=== PATIENT | female | born 1945 | race Caucasian/White ===

== ENCOUNTER → 2016-11-15 | Outpatient (CLI) | payer MEDICARE, MEDICAID, OTHER ==
[~2016-11-15] MED LIST: /ADVA50050; /ADVA50050 IN; /ESOM40CA; /TIOT18INH; /TIOT18INH INH; /WARF25TA OR; ACET65TA; ACET65TA OR; ALTA5CAP; ALTA5CAP OR; ASPI325T; ASPI325T OR; BABY81CH OR; BUDE150T; BUDE150T OR; CALTRATE PO; CELE10TA; CELE10TA OR; CLAR5CHW; CLAR5CHW OR; COLA100C2 OR; Caltrate OR; DAPTOMYCIN; FLON0.05; HEPARIN FLUSH; KLOR10TA OR; LASI40TA; LASI40TA OR; LOPR50TA OR; MAGN500T2; MAGN500T2 OR; METO25TA2; MIRALEX; NEXI40GR OR; PERC5TAB8; PERC5TAB8 OR; PERC7.5T8; PERC7.5T8 OR; PRED20TA; SALINE FLUSH; STOOL SOFTENER; THERGRAN; TOPR50TA; Theragran OR; VANCOMYCIN; VICO5TAB; VICODINES TAB PO; XOPENEX PO; ZOCO40TA; ZOCO40TA OR; [UNRECOGNIZED DRUG - OTHER]; heparin
--- NOTE | 2016-11-15 11:38 | REP ---
Clinical: Cough . Comparison: 09/27/2010 . Technique: PA and lateral. Findings: The mediastinum and cardiac silhouette are stable. Evidence for prior sternotomy and CABG again noted. The lung melendez are clear and without acute consolidation, effusion, or pneumothorax. The skeletal structures are intact and normal. Impression: 1. No acute cardiopulmonary process. Signed by Lonnie Pritchard MD 11/15/2016 11:30 A
== END ==
LOC: M WUC 11:13
PROVIDERS: ATTEND Internal Medicine
DX: R05 Cough (principal); R06.02 Shortness of breath

== ENCOUNTER → 2017-02-07 | Outpatient (CLI) | payer MEDICARE, OTHER ==
--- NOTE | 2017-02-07 12:32 | REPMRS ---
Patient History The patient states she has not had a clinical breast exam in over a year. Patient is postmenopausal. No known family history of cancer. Digital Woman Screen Mammo: February 07, 2017 - Exam #: [id number] Bilateral CC and MLO view(s) were taken. Technologist: Sheryl Morrell Technologist Prior study comparison: November 06, 2014, digital bilateral screening mammo, performed at [facility]. FINDINGS: The breast tissue is heterogeneously dense. This may lower the sensitivity of mammography. There has been no change in the appearance of the mammogram from the prior studies. There is a moderate amount of residual fibroglandular tissue which is fairly symmetric. There is no interval development of dominant mass, areas of architectural distortion, or clustered microcalcification typical of malignancy. ASSESSMENT: BI-RADS/ACR category 1 mammogram. Negative. Recommendation Routine screening mammogram in 1 year (for women over age 40). This mammogram was interpreted with the aid of an FDA-approved computer-aided dectection system. Electronically Signed By: George Peterson MD 02/07/17 [id number]
--- NOTE | 2017-02-08 14:55 | DEXA ---
AP SPINE L1 - L4 1.203 0.1 1.7 LT FEMUR TOTAL 1.025 0.1 1.6 RT FEMUR TOTAL none done TOTAL BODY TOTAL OTHER DUAL FEMUR FRAX* ASSESSMENT Risk factors: Parent had hip fracture. 10 year probability of fracture Major osteoporotic fracture 11.8 % Hip fracture 1.1 % COMMENTS: Normal bone densitometry of the spine. Normal bone densitometry of the left hip. FOLLOW-UP: Recommendation for the next bone density exam: 5 years. MTDD
== END ==
LOC: M WHC 09:49
PROVIDERS: ATTEND Nurse Practitioner Family
DX: Z12.31 Encounter for screening mammogram for malignant neoplasm of breast (principal); M81.0 Age-related osteoporosis without current pathological fracture; Z78.0 Asymptomatic menopausal state
CPT/HCPCS: 77080; G0202

== ENCOUNTER → 2017-03-23 | Outpatient (REF) | payer MEDICARE, OTHER ==
[2017-03-23 14:17] LABS: ANION GAP 7 MEQ/L (8-16); BLOOD UREA NITROGEN 16 MG/DL (7-18); CALCIUM LEVEL 8.8 MG/DL (8.8-10.2); CARBON DIOXIDE LEVEL 32 MEQ/L (21-32); CHLORIDE LEVEL 96 MEQ/L (98-107); CREATININE FOR GFR 0.79 MG/DL (0.55-1.02); GLOMERULAR FILTRATION RATE > 60.0 (>45); GLUCOSE, FASTING 79 MG/DL (80-110); SODIUM LEVEL 135 MEQ/L (136-145)
== END ==
LOC: SKLABADC 08:50
PROVIDERS: ATTEND Nurse Practitioner Family
DX: I11.9 Hypertensive heart disease without heart failure (principal)

== ENCOUNTER → 2017-04-26 | Outpatient (REF) | payer MEDICARE, MEDICAID | LOC: M LAB REF 10:22 | PROVIDERS: ATTEND Internal Medicine | DX: Z11.59 Encounter for screening for other viral diseases (principal); M25.50 Pain in unspecified joint ==

== ENCOUNTER → 2018-05-20 | Outpatient (CLI) | payer MEDICARE, MEDICAID, OTHER | LOC: M WUC 11:13 | DX: R06.2 Wheezing (principal); R06.02 Shortness of breath; Z95.1 Presence of aortocoronary bypass graft; M19.011 Primary osteoarthritis, right shoulder | CPT/HCPCS: 71101 ==

== ENCOUNTER → 2018-11-05 | Outpatient (REF) | payer MEDICARE, MEDICAID, OTHER | LOC: M LAB REF 16:13 | PROVIDERS: ATTEND Internal Medicine | DX: M25.511 Pain in right shoulder (principal) ==

== ENCOUNTER → 2018-11-07 | Outpatient (CLI) | payer MEDICARE, MEDICAID, OTHER ==
--- NOTE | 2018-11-07 12:47 | REP ---
RIGHT SHOULDER, THREE VIEWS: HISTORY: Pain. COMPARISON: Chest, 11/15/2016. There is no acute fracture or dislocation. There is marked deformity of the head of the humerus and glenoid. There is sclerosis of the head of the humerus and glenoid. Osteophyte formation is present. There is moderate narrowing of the glenohumeral joint space. IMPRESSION: Degenerative change, as described above. Electronically Signed by Triston Moralez MD 11/07/2018 12:52 P
== END ==
LOC: M WUC 11:49
PROVIDERS: ATTEND Internal Medicine
DX: M19.011 Primary osteoarthritis, right shoulder (principal)

== ENCOUNTER → 2018-11-30 | Outpatient (CLI) | payer MEDICARE, MEDICAID ==
[~2018-11-30] MED LIST changes: -/ADVA50050; -/ADVA50050 IN; -/ESOM40CA; -/TIOT18INH; -/TIOT18INH INH; -/WARF25TA OR; +ADVA1AER2; +ADVA1AER2 IN; +COUM1TAB18 OR; +METO-743; +NEXI1CAP3; +SPIR1CAP; +SPIR1CAP INH; -TOPR50TA
--- NOTE | 2018-11-30 11:41 | REPMRS ---
Patient History The patient states she had a clinical breast exam in October 2018. No known family history of cancer. 3D TOMOSYNTHESIS WAS PERFORMED. Digital Mammo Screening Bilat: November 30, 2018 - Exam #: [id number] Bilateral CC and MLO view(s) were taken. Technologist: Daniella Youngblood, Technologist Prior study comparison: February 07, 2017, digital woman screen mammo, performed at [facility]. November 06, 2014, digital bilateral screening mammo, performed at [facility]. FINDINGS: The breast tissue is heterogeneously dense. This may lower the sensitivity of mammography. There has been no change in the appearance of the mammogram from the prior studies. There is a moderate amount of residual fibroglandular tissue which is fairly symmetric. There is no interval development of dominant mass, areas of architectural distortion, or clustered microcalcification typical of malignancy. Assessment: BI-RADS/ACR category 1 mammogram. Negative Mammogram. Recommendation Routine screening mammogram in 1 year (for women over age 40). This mammogram was interpreted with the aid of an FDA-approved computer-aided dectection system. Electronically Signed By: George Peterson MD 11/30/18 [id number]
== END ==
LOC: M RAD 09:59
PROVIDERS: ATTEND Internal Medicine
DX: Z12.31 Encounter for screening mammogram for malignant neoplasm of breast (principal)

== ENCOUNTER → 2019-02-05 | Outpatient (REF) | payer OTHER, MEDICAID | LOC: M LABDRAW1 12:46 | PROVIDERS: ATTEND Orthopaedic Surgery | DX: M19.011 Primary osteoarthritis, right shoulder (principal) ==

== ENCOUNTER → 2019-03-05 | Outpatient (REF) | payer OTHER, MEDICAID | LOC: M LAB REF 16:41 | PROVIDERS: ATTEND Internal Medicine | DX: M19.90 Unspecified osteoarthritis, unspecified site (principal) ==

== ENCOUNTER → 2019-04-19 | Outpatient (REF) | payer OTHER, MEDICAID ==
[~2019-04-19] MED LIST changes: +ACET650T15 PO; +ALBU83IN INH; +ASPI81TA85 PO; +ATOR80TA59 PO; +CITA20TA6 PO; +FURO40TA2 PO; +IBUP200C25 PO; +LORA-243 PO; +MORP-69 PO; +MULTCAP PO; +PANT20TA2 PO; +PANT40TA3 PO; +PERCOCET PO; +POTA10TA16 PO; +RAMI1CAP24 PO; +TRAZ1TAB10 PO; +TREL1AER INH
[2019-04-19 12:45] LABS: SOURCE, BODY FLUID RT SHOULDER; SYNOVIAL FLUID COLOR RED (YELLOW)
[2019-04-19 12:46] LABS: SOURCE, BODY FLUID GLUCOSE RT SHOULDER; SOURCE, BODY FLUID URIC ACID RT SHOULDER
[2019-04-19 12:47] LABS: CRYSTALS, BODY FLUID NONE SEEN (NONE SEEN); SOURCE, BODY FLUID CRYSTALS RT SHOULDER
== END ==
LOC: M LAB REF 11:50
PROVIDERS: ATTEND Orthopaedic Surgery
DX: M19.011 Primary osteoarthritis, right shoulder (principal)

== ENCOUNTER → 2019-06-12 | Outpatient (CLI) | payer MEDICAID, MEDICARE, OTHER ==
[~2019-06-12] MED LIST changes: -ACET650T15 PO; -ALBU83IN INH; -ASPI81TA85 PO; -ATOR80TA59 PO; -CITA20TA6 PO; -FURO40TA2 PO; -IBUP200C25 PO; -LORA-243 PO; -MORP-69 PO; -MULTCAP PO; -PANT20TA2 PO; -PANT40TA3 PO; -PERCOCET PO; -POTA10TA16 PO; -RAMI1CAP24 PO; -TRAZ1TAB10 PO; -TREL1AER INH
--- NOTE | 2019-06-12 16:24 | REP ---
MRI right shoulder without contrast: History: Primary osteoarthritis. Pain and decreased range of motion. Comparison radiographs are from November 07, 2018. Technique: Axial, oblique coronal, oblique sagittal imaging planes utilized. T1 and T2-weighted scans were included with and without fat saturation in the usual fashion. MRI findings: There is considerable motion artifact. Repeat sequences were attempted. The patient had difficulty remaining motionless to the due to pain and ultimately the exam was terminated at her request. There is severe right glenohumeral arthropathy with resorption and remodelling of the humeral head and remodelling of the glenoid. There is a small quantity of glenohumeral joint effusion. There is evidence of severe chondromalacia and cartilage loss diffusely in the glenohumeral articulation. I cannot exclude loose body due to the motion unsharpness. There are micro metallic artifact at the superior aspect of the joint suggesting previous surgery. Radiographically, the distal clavicle appears to have been resected. The infraspinatus tendon appears to be intact. The other tendons of the rotator cuff are very poorly identified. The supraspinatus tendon does not appear to be completely disrupted. Impression: Very limited study due to motion artifact. Severe erosive arthropathy of the right glenohumeral articulation. Electronically Signed by Jose Eduardo Mcgowan MD 06/12/2019 05:47 P
== END ==
LOC: M RAD 09:45
PROVIDERS: ATTEND Orthopaedic Surgery Sports Medicine
DX: M19.011 Primary osteoarthritis, right shoulder (principal)

== ENCOUNTER 2019-08-12 09:54 | Inpatient (IN) | payer MEDICARE, MEDICAID ==
[~2019-08-12] VITALS: Ht 175.3 cm; Wt 91.0 kg
[~2019-08-12 09:54] MED LIST changes: +ACET650T15 PO; +ALBU83IN INH; +ASPI81TA85 PO; +ATOR80TA59 PO; +CITA20TA6 PO; +FURO40TA2 PO; +IBUP200C25 PO; +LIDOCAINE 1% MDV 20ML VIAL SQ PRN; +LIDOCAINE 2% INJ 100 MG/5 ML SDV (FOR ANES.) As Ordered ONE; +LORA-243 PO; +LR 1,000 ML IV ONE; +MORP-69 PO; +MULTCAP PO; +PANT20TA2 PO; +POTA10TA16 PO; +PROPOFOL 200 MG/20 ML VIAL As Ordered ONE; +RAMI1CAP24 PO; +TRAZ1TAB10 PO; +TREL1AER INH
[2019-08-12] MEDS ORDERED: dexameTHASONE 4 MG/ML 1ML VIAL (J1100) As Ordered ONE (09:56)
[2019-08-12] MEDS ORDERED: ONDANSETRON 4MG/2ML VIAL (J2405) As Ordered ONE (09:56)
[2019-08-12] MEDS ORDERED: fentaNYL 100 MCG/2 ML INJECTION (J3010) As Ordered ONE ×2 (09:56→14:47)
[2019-08-12] MEDS ORDERED: ROCURONIUM BROMIDE 50 MG/5 ML VIAL As Ordered ONE (10:52)
[2019-08-12] MEDS ORDERED: ASPIRIN 81 MG CHEW TABLET PO ONE (11:00)
[2019-08-12] MEDS ORDERED: ALBUTEROL SULFATE 2.5 MG/0.5 ML INH NEB SOLN INH ONE (12:00)
[2019-08-12] MEDS ORDERED: EPINEPHrine 1MG/ML INJ 30ML MD-VIAL As Ordered ONE (12:33)
[2019-08-12] MEDS ORDERED: LIDOCAINE 1% MDV 20ML VIAL As Ordered ONE (12:33)
[2019-08-12] MEDS ORDERED: MIDAZOLAM INJ 2 MG/2 ML VIAL (J2250) As Ordered ONE (12:35)
[2019-08-12] MEDS ORDERED: ESMOLOL INJ 100MG/10ML VIAL As Ordered ONE (13:04)
[2019-08-12] MEDS ORDERED: ceFAZolin 2 GM/D5W 50 ML IV BAG (J0690 PER 500MG) As Ordered ONE (13:30)
[2019-08-12] MEDS ORDERED: SUGAMMADEX SODIUM 500 MG/5 ML VIAL (BRIDION) As Ordered ONE (13:35)
[2019-08-12] MEDS ORDERED: hydrALAZINE INJ 20 MG/ML VIAL As Ordered ONE (13:36)
[2019-08-12] MEDS ORDERED: BUPIVACAINE HCL 0.25% 30 ML VIAL As Ordered ONE (14:08)
[2019-08-12] MEDS ORDERED: ACETAMINOPHEN 1000MG 100ML IV BTL (OFIRMEV) (J0131 PER 10MG) As Ordered ONE (14:14)
[2019-08-12] MEDS: fentaNYL 100 MCG/2 ML INJECTION (J3010) IV PRN ×4 (14:50→15:10)
[2019-08-12] MEDS ORDERED: HYDROMORPHONE HCL 0.5 MG/ 0.5 ML SYRINGE (J1170 PER 1) As Ordered ONE (15:23)
[2019-08-12] MEDS: HYDROMORPHONE HCL 0.5 MG/ 0.5 ML SYRINGE (J1170 PER 1) IV PRN ×3 (15:25→15:37)
[2019-08-12] MEDS ORDERED: ONDANSETRON 4MG/2ML VIAL (J2405) IV PRN ×2 (15:30→18:15)
[2019-08-12] MEDS ORDERED: LR 1,000 ML IV SCH (15:30)
[2019-08-12] MEDS: LR 1,000 ML IV SCH (15:30)
[2019-08-12] MEDS ORDERED: PERCOCET 5MG/325MG TAB PO PRN (18:15)
[2019-08-12] MEDS ORDERED: MORPHINE 15 MG SA TAB PO PRN (18:15)
[2019-08-12] MEDS ORDERED: PANT40TA3 PO (18:32)
[2019-08-12] MEDS: PERCOCET 5MG/325MG TAB PO PRN (18:45)
[2019-08-12] MEDS ORDERED: MORPHINE 2 MG/ML 1ML VIAL (J2270) IV PRN (19:30)
[2019-08-12 20:00] VITALS: BP 100/64
[2019-08-12 21:00] VITALS: BP 101/54
[2019-08-12] MEDS: traZODone 50 MG TAB PO SCH (21:00)
[2019-08-12] MEDS: MORPHINE 15 MG SA TAB PO SCH (21:15)
[2019-08-12 22:00] VITALS: BP 102/56
[2019-08-12 23:00] VITALS: BP 113/62
[2019-08-13] MEDS: LR 1,000 ML IV SCH (01:30)
[2019-08-13] MEDS: PERCOCET 5MG/325MG TAB PO PRN ×3 (01:55→16:44)
[2019-08-13 02:00] VITALS: BP 119/73
[2019-08-13 06:00] VITALS: BP 128/72
[2019-08-13] MEDS ORDERED: ALBUTEROL SULFATE 2.5 MG/0.5 ML INH NEB SOLN INH PRN (06:00)
--- NOTE | 2019-08-13 06:00 | HPEPDOC ---
[facility] Medical History & Physical Date of Admission Aug 13, 2019 Date of Service: Aug 13, 2019 Primary Care Physician: Lenora Alfaro Attending Physician: RPATIK BARRY MD History and Physical TIME OF SERVICE: 5:30 AM REASON FOR CONSULT: Postop management ATTENDING PHYSICIAN: Dr. Pratik Barry HISTORY OF PRESENT ILLNESS: This is a 74 old female who underwent right shoulder arthroscopy, bone biopsy, synovial biopsy, rotator cuff and labral debridement debridement yesterday; per discussion with nursing staff a hospice consult was placed. Currently the patient reports her pain is well-controlled & she has no acute complaints. She is concerned about going home because she has an unsteady gait, walks with a walker, has chronic hip problems, and does not that she'll be able to operate her rolling walker with one arm. REVIEW OF SYSTEMS: 12 point review of systems negative except as listed in HPI PAST MEDICAL/ SURGICAL HISTORY: COPD Chronic hypertension Chronic CAD status post stent placement / Dyslipidemia The apnea not compliant with CPAP GERD Unsteady gait, walks with a walker Status post right shoulder debridement Status post bilateral cataract surgery She denies having a personal history of diabetes, CVA, or thyroid disorder SOCIAL HISTORY: She quit smoking She lives alone FAMILY HISTORY: Both of her parents had cancer ALLERGIES: Please see below. HOME MEDICATIONS: Please see below. PHYSICAL EXAMINATION: VITAL SIGNS: Please see below. GEN: Obese/well-developed / asleep but arousable with vocal stimuli INTEGUMENT: Right shoulder is wrapped in clean and dry dressings/as a post sternotomy scar at the end of the chest HEENT: NCAT / lips acyanotic /mucus membranes moist and pink / NC in place/neck short CVS: RRR/NMRG LUNGS: lungs are clear to auscultation bilaterally on room air NEURO: CN 2-12 are grossly intact / speech is not dysarthric PSYCH: alert and oriented to person place and time/ able to understand and follow all commands LABORATORY DATA: n/a IMAGING: n/a MICROBIOLOGY: Please see below. ASSESSMENT: Ms. Barron is a 74 yr old with a history of COPD, chronic hypertension, chronic CAD, unsteady gait, and obesity, who has been admitted after right shoulder debridement; she is requesting assistance with placement in inpatient rehabilitation or SNF temporarily. PLAN: 1. s/p Right shoulder arthroscopy, bone biopsy, synovial biopsy, rotator cuff and labral debridement POD #1 Plan: per primary team 2. COPD Stable. Plan: Continue albuterol and Trelegy Ellipta 3. Chronic hypertension. Plan: Continue furosemide with potassium, chloride / resume ramipril tomorrow to avoid post-op hypotension (currently her BP is on the low side) 4. Chronic CAD status post stent placement / Dyslipidemia Plan: Continue atorvastatin and aspirin 5. GERD Plan: Continue pantoprazole Unsteady gait, walks with a walker DVT PROPHYLAXIS: Per primary team DISPOSITION: PFS, PT/OT consults have been placed for assistance with temporary placement Thank you for consulting us, we will continue to follow the patient with you. Vital Signs Vital Signs Date Time Temp Pulse Resp B/P (MAP) Pulse Ox O2 Delivery O2 Flow Rate FiO2 08/13/19 05:21 1.0 08/13/19 02:25 18 Room Air 08/13/19 02:00 98.1 91 119/73 (88) 94 Laboratory Data Microbiology Microbiology 08/12/19 Gram Stain, Received Pending 08/12/19 Surgical Biopsy Culture, Received Pending 08/12/19 Anaerobic Culture, Received Pending 08/12/19 Gram Stain, Received Pending 08/12/19 Surgical Biopsy Culture, Received Pending 08/12/19 Anaerobic Culture, Received Pending 08/12/19 Gram Stain, Received Pending 08/12/19 Surgical Biopsy Culture, Received Pending 08/12/19 Anaerobic Culture, Received Pending 08/12/19 Fungal Smear, Received Pending 08/12/19 Fungal Culture, Received Pending 08/12/19 Acid Fast Stain, Received Pending 08/12/19 Mycobacterial Culture, Received Pending 08/12/19 Fungal Smear, Received Pending 08/12/19 Fungal Culture, Received Pending 08/12/19 Acid Fast Stain, Received Pending 08/12/19 Mycobacterial Culture, Received Pending 08/12/19 Gram Stain, Received Pending 08/12/19 Surgical Biopsy Culture, Received Pending 08/12/19 Anaerobic Culture, Received Pending Home Medications Scheduled Acetaminophen (Acetaminophen ER) 650 Mg Tablet.er, 650 MG PO BID Albuterol Sulf (Albuterol Sulfate) 2.5 Mg/3 Ml Vial.neb, 2.5 MG INH PRN Aspirin (Aspir 81) 81 Mg Tablet.dr, 81 MG PO DAILY Atorvastatin Calcium (Atorvastatin Calcium) 80 Mg Tablet, 80 MG PO QPM Citalopram Hydrobromide (Citalopram HBr) 20 Mg Tablet, 20 MG PO DAILY Fluticasone/Umeclidin/Vilanter (Trelegy Ellipta 100-62.5-25) 1 Each Blst.w.dev, 1 PUFF INH DAILY Furosemide (Furosemide) 40 Mg Tablet, 40 MG PO BID Ibuprofen (Ibuprofen) 200 Mg Capsule, Unknown Dose PO DAILY Loratadine (Loratadine) 10 Mg Tablet, 10 MG PO DAILY Morphine Sulfate (Morphine Sulfate ER) 15 Mg Tablet.er, 15 MG PO BID Multivitamin (Multivitamins) 1 Each Capsule, 1 CAP PO DAILY Pantoprazole Sodium (Pantoprazole Sodium) 40 Mg Tablet.dr, 40 MG PO DAILY Potassium Chloride (Potassium Chloride) 10 Meq Tab.er.prt, 10 MEQ PO DAILY Ramipril (Ramipril) 5 Mg Capsule, 10 MG PO QHS Trazodone HCl (Trazodone HCl) 50 Mg Tablet, 50 MG PO QHS Allergies Coded Allergies: vancomycin (Verified Allergy, Intermediate, turned purple, hives, 07/31/19) A-FIB/CHADSVASC A-FIB History Current/History of A-Fib/PAF?: No Current PO Anticoag Therapy: No PHOENIX LEAL MD Aug 13, 2019 06:00
[2019-08-13 07:24] LABS: RED BLOOD COUNT 3.58 10^6/uL (4.00-5.40); WHITE BLOOD COUNT 10.7 10^3/uL (4.0-10.0)
[2019-08-13 07:25] LABS: BASO % 0.1 % (0.0-1.0); EOS % 0.1 % (0.0-3.0); HEMATOCRIT 35.8 % (36.0-47.0); HEMOGLOBIN 11.1 g/dl (12.0-15.5); LYMPH # 1.1 10^3/uL (1.5-5.0); LYMPH % 9.8 % (24.0-44.0); MONO # 0.9 10^3/uL (0.0-0.8); MONO % 8.7 % (0.0-5.0); NEUTROPHILS # 8.6 10^3/uL (1.5-8.5); NEUTROPHILS % 80.9 % (36.0-66.0); PLATELET COUNT, AUTOMATED 206 10^3/uL (150-450)
[2019-08-13 07:48] LABS: BLOOD UREA NITROGEN 14 MG/DL (7-18); CALCIUM LEVEL 8.2 MG/DL (8.8-10.2); CARBON DIOXIDE LEVEL 29 MEQ/L (21-32); CHLORIDE LEVEL 107 MEQ/L (98-107); CREATININE FOR GFR 0.73 MG/DL (0.55-1.30); GLOMERULAR FILTRATION RATE > 60.0 (>39); GLUCOSE, FASTING 116 MG/DL (70-100); POTASSIUM SERUM 4.2 MEQ/L (3.5-5.1); SODIUM LEVEL 141 MEQ/L (136-145)
[2019-08-13] MEDS: ASPIRIN 81 MG ENTERIC TAB PO SCH (08:29)
[2019-08-13] MEDS: PANTOPRAZOLE 40MG TAB (PROTONIX) PO SCH (08:29)
[2019-08-13] MEDS: FUROSEMIDE 40 MG TAB PO SCH ×2 (08:29→16:43)
[2019-08-13] MEDS: POTASSIUM CHLORIDE 10 MEQ SR TABLET PO SCH (08:29)
[2019-08-13] MEDS: CitaloPRAM (CeleXA) 20 MG TAB PO SCH (08:29)
[2019-08-13] MEDS: MORPHINE 15 MG SA TAB PO SCH ×2 (08:30→20:47)
[2019-08-13] MEDS: MOM 30ML SUSPENSION UDC PO SCH (08:31)
[2019-08-13] MEDS: MIRALAX *UNIT DOSE* 17GM PACKET PO SCH (08:32)
[2019-08-13] MEDS ORDERED: NON-FORMULARY 1 EA EA INH SCH (09:00)
[2019-08-13] MEDS ORDERED: TRELEGY ELLIPTA INH SCH (09:00)
--- NOTE | 2019-08-13 14:37 | RO ---
DATE OF PROCEDURE: 08/12/2019 PREOPERATIVE DIAGNOSES: 1. Right shoulder glenohumeral osteoarthritis. 2. Right shoulder inflammation versus low grade septic arthritis. 3. Right shoulder partial thickness rotator cuff tear. POSTOPERATIVE DIAGNOSES: 1. Right shoulder glenohumeral joint inflammation. 2. Right shoulder glenohumeral joint stage IV osteoarthritis. 3. Right shoulder partial thickness rotator cuff tear. 4. Right shoulder diffuse labral tear. PROCEDURES: 1. Right shoulder arthroscopy with rotator cuff debridement. 2. Right shoulder arthroscopic labral debridement. 3. Right shoulder arthroscopic synovial and bone biopsy. SURGEON: Dr. Brody Barry NETWORK ARCHITECT: EZEQUIEL Barnes ANESTHESIA: General. IV FLUIDS: Lactated Ringer's. ESTIMATED BLOOD LOSS: 5 mL. IMPLANTS: None. SPECIMENS: Soft tissue synovium for pathology and then soft tissue times two for culture, bone times three for culture. This includes aerobic, anaerobic, AFB and fungal. CLOSURE: Nylon. INDICATIONS FOR PROCEDURE: The patient has a history of right shoulder surgery and then developed severe glenohumeral arthritis. Previous shoulder surgery with the intent of performing a shoulder replacement was aborted due to questionable infection status with increased white blood cells per high-power field. She had failed cortisone injections and aspiration under interventional radiology guidance did not obtain sufficient fluid to rule out infection. Therefore, I offered to perform an arthroscopic synovial and bone biopsy, holding the cultures for 4 weeks specifically to look for P-acnes and then if the cultures were negative possible consideration for shoulder arthroplasty by complex shoulder specialist at an outside institution. Risk and benefits of surgery discussed, consent obtained. The patient was identified in preoperative holding area and the right shoulder was marked by myself. She was brought to the operating room, placed supine on a well-padded OR table with a beanbag. General anesthesia induced. Preoperative antibiotics were held. The patient had an examination under anesthesia revealing 130 degrees of passive forward flexion, 90 degrees of external rotation with arm at her side and 90 degrees of abduction. She was then placed into the left side down lateral decubitus position with an axillary roll and all bony prominences were well padded. Bilateral Venodyne boots for deep vein thrombosis (DVT) prophylaxis. The right arm was placed into the Arthrex star sleeve lateral decubitus traction ovalle with 10 pounds of traction. The right shoulder was then prepped and draped in normal sterile fashion with Chloraprep. Prior to incision, time-out performed per hospital protocol. The right shoulder was insufflated with lactated Ringer's. Standard posterior viewing portal made with an 11-blade. 30 degrees arthroscope was introduced into the joint. Diagnostic arthroscopy revealed grade IV chondral changes to the glenoid and humeral head. There was severe diffuse synovitis, but I did not encounter any grossly purulent fluid. The overall appearance was not one of infection. Anterior working portal was established in the rotator interval and then I performed synovial biopsy with a pituitary rongeur. One specimen was sent for permanent histology and pathology. Two additional specimens were sent for culture, including one for AFB and fungal, the other for aerobic and anaerobic. I then obtained three bone biopsies using a ring curette, one of the biopsies from the humeral head, two from the glenoid. One of those was sent for AFB and fungal and the other was sent for aerobic and anaerobic times two. I used the shaver to perform a debridement of the labral tearing and rotator cuff debridement. There is a high-grade partial articular rotator cuff tear but nothing that appeared to be full thickness. The arthroscope was placed in the subacromial space, lateral working portal was established and a soft tissue biopsy from the subacromial space was also sent for aerobic and anaerobic culture. I performed a bursectomy with the shaver and cautery. Although no full-thickness rotator cuff tear was encountered, when I used the switching stick to palpate the supraspinatus, it was highly mobile and boggy, likely basically a very high-grade partial articular cuff tear. The shoulder was then irrigated and drained. Kulwinder injected 20 mL of 0.25% Marcaine without epinephrine at the arthroscopy portals, into the joint and subacromial space. A bulky sterile dressing was applied. She was then placed into a shoulder immobilizer type sling, extubated, transferred to the postanesthesia care unit (PACU). All counts correct times two. COMPLICATIONS: None. DISPOSITION: I specifically called the pathology department to warn them that we would be sending multiple specimens that must be held for 4 weeks. I have also spoken with our infectious disease specialist to ensure no special stains were required and she agreed with my plan. If the patient is having severe postop pain, she get an interscalene nerve block. Otherwise, she will follow up in the office.
[2019-08-13 15:11] VITALS: BP 114/58
[2019-08-13] MEDS: traZODone 50 MG TAB PO SCH (20:45)
[2019-08-13] MEDS: ATORVASTATIN 20 MG TAB PO SCH (20:46)
[2019-08-13] MEDS ORDERED: RAMIPRIL 5 MG CAP PO SCH (21:00)
[2019-08-13 22:00] VITALS: BP 121/55
[2019-08-14 06:00] VITALS: BP 149/71
[2019-08-14] MEDS: TIOTROPIUM INHALER/CAPSULE (SPIRIVA) INH SCH (08:00)
[2019-08-14] MEDS: ASPIRIN 81 MG ENTERIC TAB PO SCH (08:16)
[2019-08-14] MEDS: POTASSIUM CHLORIDE 10 MEQ SR TABLET PO SCH (08:16)
[2019-08-14] MEDS: PANTOPRAZOLE 40MG TAB (PROTONIX) PO SCH (08:16)
[2019-08-14] MEDS: CitaloPRAM (CeleXA) 20 MG TAB PO SCH (08:16)
[2019-08-14] MEDS: FUROSEMIDE 40 MG TAB PO SCH ×2 (08:16→16:30)
[2019-08-14] MEDS: PERCOCET 5MG/325MG TAB PO PRN ×3 (08:17→19:28)
[2019-08-14] MEDS: MORPHINE 15 MG SA TAB PO SCH ×2 (08:18→20:44)
[2019-08-14] MEDS: MOM 30ML SUSPENSION UDC PO SCH (08:19)
[2019-08-14] MEDS: MIRALAX *UNIT DOSE* 17GM PACKET PO SCH (09:00)
--- NOTE | 2019-08-14 12:12 | IPNPDOC ---
Text Note Date of Service The patient was seen on 08/14/19. NOTE SUBJECTIVE: No complaints this morning, except for left shoulder pain. PHYSICAL EXAMINATION: VITAL SIGNS: Please see below. GEN: Obese/well-developed / alert oriented x 3 INTEGUMENT: Right shoulder is wrapped in clean and dry dressings/as a post sternotomy scar at the end of the chest HEENT: NCAT / lips acyanotic /mucus membranes moist and pink / NC in place/neck short CVS: S1, S2 normal , regular rhythm, no rub murmur or gallop LUNGS: lungs are clear to auscultation bilaterally on room air, overall diminhed air entry. NEURO: CN 2-12 are grossly intact , no focal neurodeficits. PSYCH: alert and oriented to person place and time MICROBIOLOGY: Please see below. Labs and Radiology: reviewed. ASSESSMENT and PLAN: Ms. Barron is a 74 old female the past with history of COPD, chronic hypertension, CAD s/p CABG, unsteady gait, and obesity, hyperlipidemia, Inflammatory arthritis, OA anxiety, depression, ALEXANDRE untreated, Chronic respiratory failure, Asthma, IBS, who has been admitted after right shoulder debridement; she is requesting assistance with placement in inpatient rehabilitation or SNF temporarily. S/p Right shoulder arthroscopy, bone biopsy, synovial biopsy, rotator cuff and labral debridement Plan: per primary orthopedics. On MS contin , oxycodone. COPD/Asthma Stable. Continue albuterol and Trelegy Ellipta Uses oxygen during night and during episodes of wheezing. Hypertension. Continue furosemide and ramipril Chronic CAD status post CABG and stent placement / Dyslipidemia Continue atorvastatin and aspirin GERD Continue pantoprazole Unsteady gait, walks with a walker Inflammatory arthritis/OA continue morphine , oxycodone prn Anxiety and depression continue trazodone and celexa. DVT prophylaxis : in Place. VS,Fishbone, I+O VS, Fishbone, I+O Vital Signs Date Time Temp Pulse Resp B/P (MAP) Pulse Ox O2 Delivery O2 Flow Rate FiO2 08/14/19 09:02 16 08/14/19 06:00 97.7 73 149/71 (97) 97 Nasal Cannula 1.0 I&O- Last 24 Hours up to 6 AM 08/14/19 06:00 Intake Total 1315 ml Balance 1315 ml JASS SEGUNDO MD Aug 14, 2019 12:11
[2019-08-14 14:00] VITALS: BP 109/63
[2019-08-14] MEDS: SYMBICORT 80/4.5MCG INHALER 6GM INH SCH (20:00)
[2019-08-14 20:42] VITALS: BP 158/80
[2019-08-14] MEDS: ATORVASTATIN 20 MG TAB PO SCH (20:44)
[2019-08-14 20:45] VITALS: BP 158/80
[2019-08-14] MEDS: traZODone 50 MG TAB PO SCH (20:45)
[2019-08-14] MEDS ORDERED: RAMIPRIL 5 MG CAP PO SCH (21:00)
[2019-08-15 06:24] VITALS: BP 147/79
[2019-08-15 06:26] LABS: BASO % 0.3 % (0.0-1.0); EOS # 0.4 10^3/uL (0.0-0.5); EOS % 5.4 % (0.0-3.0); HEMATOCRIT 33.2 % (36.0-47.0); HEMOGLOBIN 10.4 g/dl (12.0-15.5); LYMPH # 1.8 10^3/uL (1.5-5.0); LYMPH % 24.5 % (24.0-44.0); MEAN CORPUSCULAR HEMOGLOBIN 31.6 pg (27.0-33.0); MEAN CORPUSCULAR HGB CONC 31.3 g/dl (32.0-36.5); MEAN CORPUSCULAR VOLUME 100.9 fl (80.0-96.0); MONO # 0.7 10^3/uL (0.0-0.8); MONO % 9.7 % (0.0-5.0); NEUTROPHILS # 4.4 10^3/uL (1.5-8.5); NEUTROPHILS % 59.7 % (36.0-66.0); PLATELET COUNT, AUTOMATED 210 10^3/uL (150-450); RED BLOOD COUNT 3.29 10^6/uL (4.00-5.40); WHITE BLOOD COUNT 7.4 10^3/uL (4.0-10.0)
[2019-08-15 06:44] LABS: BLOOD UREA NITROGEN 10 MG/DL (7-18); CALCIUM LEVEL 7.8 MG/DL (8.8-10.2); CARBON DIOXIDE LEVEL 34 MEQ/L (21-32); CHLORIDE LEVEL 103 MEQ/L (98-107); CREATININE FOR GFR 0.66 MG/DL (0.55-1.30); GLOMERULAR FILTRATION RATE > 60.0 (>39); GLUCOSE, FASTING 102 MG/DL (70-100); POTASSIUM SERUM 3.9 MEQ/L (3.5-5.1); SODIUM LEVEL 140 MEQ/L (136-145)
[2019-08-15] MEDS ORDERED: PERCOCET PO (07:13)
[2019-08-15] MEDS: SYMBICORT 80/4.5MCG INHALER 6GM INH SCH (08:55)
[2019-08-15] MEDS: TIOTROPIUM INHALER/CAPSULE (SPIRIVA) INH SCH (08:55)
[2019-08-15] MEDS: MOM 30ML SUSPENSION UDC PO SCH ×2 (09:00→09:22)
[2019-08-15] MEDS: MIRALAX *UNIT DOSE* 17GM PACKET PO SCH (09:21)
[2019-08-15] MEDS: FUROSEMIDE 40 MG TAB PO SCH (09:21)
[2019-08-15] MEDS: PANTOPRAZOLE 40MG TAB (PROTONIX) PO SCH (09:22)
[2019-08-15] MEDS: POTASSIUM CHLORIDE 10 MEQ SR TABLET PO SCH (09:22)
[2019-08-15] MEDS: ASPIRIN 81 MG ENTERIC TAB PO SCH (09:22)
[2019-08-15] MEDS: MORPHINE 15 MG SA TAB PO SCH (09:22)
[2019-08-15] MEDS: CitaloPRAM (CeleXA) 20 MG TAB PO SCH (09:22)
== END 2019-08-15 11:00 | DRG 479 ==
LOC: M SDC 09:54 → M MS5PR 18:05 → M SDC 08-13 14:31 → M MS5PR 08-13 14:32
PROVIDERS: ADMIT Orthopaedic Surgery; ATTEND Orthopaedic Surgery
PROC: 0MB10ZZ Excision of Right Shoulder Bursa and Ligament, Open Approach (ICD-10-PCS; 2019-08-12)
PROC: 0PB Upper Bones, Excision (ICD-10-PCS; 2019-08-12)
PROC: 0RBJ4ZX Excision of Right Shoulder Joint, Percutaneous Endoscopic Approach, Diagnostic (ICD-10-PCS; 2019-08-12)
PROC: 0PB Upper Bones, Excision (ICD-10-PCS; principal; 2019-08-12 12:00)
DX: M19.011 Primary osteoarthritis, right shoulder (principal); M75.111 Incomplete rotator cuff tear or rupture of right shoulder, not specified as traumatic; R26.81 Unsteadiness on feet; J44.9 Chronic obstructive pulmonary disease, unspecified; I11.9 Hypertensive heart disease without heart failure; F32.9 Major depressive disorder, single episode, unspecified; I25.10 Atherosclerotic heart disease of native coronary artery without angina pectoris; E78.2 Mixed hyperlipidemia; F41.9 Anxiety disorder, unspecified; G47.33 Obstructive sleep apnea (adult) (pediatric); E66.9 Obesity, unspecified; K21.9 Gastro-esophageal reflux disease without esophagitis; Z98.41 Cataract extraction status, right eye; Z98.42 Cataract extraction status, left eye; Z95.5 Presence of coronary angioplasty implant and graft; Z79.82 Long term (current) use of aspirin; Z79.899 Other long term (current) drug therapy; Z88.1 Allergy status to other antibiotic agents; Z87.891 Personal history of nicotine dependence; Z68.29 Body mass index [BMI] 29.0-29.9, adult

== ENCOUNTER → 2019-08-22 | Outpatient (REF) ==
[~2019-08-22] MED LIST changes: -LIDOCAINE 1% MDV 20ML VIAL SQ PRN; -LIDOCAINE 2% INJ 100 MG/5 ML SDV (FOR ANES.) As Ordered ONE; -LR 1,000 ML IV ONE; +PANT40TA3 PO; +PERCOCET PO; -PROPOFOL 200 MG/20 ML VIAL As Ordered ONE
[2019-08-22 07:23] LABS: HEMATOCRIT 37.1 % (36.0-47.0); HEMOGLOBIN 11.7 g/dl (12.0-15.5); MEAN CORPUSCULAR HEMOGLOBIN 30.6 pg (27.0-33.0); MEAN CORPUSCULAR HGB CONC 31.5 g/dl (32.0-36.5); MEAN CORPUSCULAR VOLUME 97.1 fl (80.0-96.0); PLATELET COUNT, AUTOMATED 236 10^3/uL (150-450); RED BLOOD COUNT 3.82 10^6/uL (4.00-5.40); WHITE BLOOD COUNT 6.5 10^3/uL (4.0-10.0)
[2019-08-22 07:47] LABS: BLOOD UREA NITROGEN 11 MG/DL (7-18); CALCIUM LEVEL 8.4 MG/DL (8.8-10.2); CARBON DIOXIDE LEVEL 32 MEQ/L (21-32); CHLORIDE LEVEL 107 MEQ/L (98-107); CHOLESTEROL LEVEL 131 MG/DL (<200); CHOLESTEROL RISK RATIO 2.471 (<5); CREATININE FOR GFR 0.66 MG/DL (0.55-1.30); GLOMERULAR FILTRATION RATE > 60.0 (>39); GLUCOSE, FASTING 86 MG/DL (70-100); HDL CHOLESTEROL 53 MG/DL (>40); LDL CHOLESTEROL 61 MG/DL (<100); NON-HDL-C 78 MG/DL; POTASSIUM SERUM 3.8 MEQ/L (3.5-5.1); SODIUM LEVEL 144 MEQ/L (136-145); TRIGLYCERIDES LEVEL 84 MG/DL (<150)
== END ==
LOC: SKLAB5 10:01
PROVIDERS: ATTEND Internal Medicine
DX: E87.6 Hypokalemia (principal); I10 Essential (primary) hypertension

== ENCOUNTER → 2019-08-27 | Outpatient (REF) | LOC: SKLAB5 07:32 | PROVIDERS: ATTEND Internal Medicine | DX: E83.42 Hypomagnesemia (principal) ==

== ENCOUNTER → 2019-08-29 | Outpatient (REF) ==
[2019-08-29 14:50] LABS: CREATININE, URINE 26.6 MG/DL; MALB URINE SIEMENS < 5.0 MG/L; MAU/CREAT RATIO 18.7 MCG/MG (0.0-30.0)
== END ==
LOC: SKLAB5 12:33
PROVIDERS: ATTEND Internal Medicine
DX: I10 Essential (primary) hypertension (principal); E78.49 Other hyperlipidemia

== ENCOUNTER → 2019-08-30 | Outpatient (REF) ==
[2019-08-30 10:17] LABS: BLOOD UREA NITROGEN 17 MG/DL (7-18); CALCIUM LEVEL 8.5 MG/DL (8.8-10.2); CARBON DIOXIDE LEVEL 30 MEQ/L (21-32); CHLORIDE LEVEL 104 MEQ/L (98-107); CREATININE FOR GFR 0.69 MG/DL (0.55-1.30); GLOMERULAR FILTRATION RATE > 60.0 (>39); GLUCOSE, FASTING 93 MG/DL (70-100); SODIUM LEVEL 141 MEQ/L (136-145)
== END ==
LOC: SKLAB5 07:29
PROVIDERS: ATTEND Internal Medicine
DX: J44.9 Chronic obstructive pulmonary disease, unspecified (principal); I10 Essential (primary) hypertension

== ENCOUNTER → 2019-10-28 | Outpatient (CLI) | payer MEDICARE, MEDICAID ==
[2019-10-28 18:11] LABS: BASO % 0.4 % (0.0-1.0); EOS # 0.5 10^3/uL (0.0-0.5); EOS % 4.6 % (0.0-3.0); HEMATOCRIT 41.3 % (36.0-47.0); HEMOGLOBIN 13.2 g/dl (12.0-15.5); LYMPH # 1.8 10^3/uL (1.5-5.0); LYMPH % 17.6 % (24.0-44.0); MEAN CORPUSCULAR HEMOGLOBIN 30.9 pg (27.0-33.0); MEAN CORPUSCULAR VOLUME 96.7 fl (80.0-96.0); MONO # 0.8 10^3/uL (0.0-0.8); MONO % 8.2 % (0.0-5.0); NEUTROPHILS # 7.1 10^3/uL (1.5-8.5); NEUTROPHILS % 68.8 % (36.0-66.0); PLATELET COUNT, AUTOMATED 241 10^3/uL (150-450); RED BLOOD COUNT 4.27 10^6/uL (4.00-5.40); WHITE BLOOD COUNT 10.3 10^3/uL (4.0-10.0)
[2019-10-28 19:10] LABS: ERYTHROCYTE SEDIMENTATION RATE 15 mm/hr (0-30)
== END ==
LOC: M PLALAB 12:52
PROVIDERS: ATTEND Internal Medicine Infectious Disease
DX: M86.60 Other chronic osteomyelitis, unspecified site (principal)
CPT/HCPCS: 36415; 85025; 85652; 86140; G0463

== ENCOUNTER → 2020-12-09 | Outpatient (CLI) | payer MEDICARE, MEDICAID ==
[~2020-12-09] MED LIST changes: -ASPI81TA85 PO; +ASPI81TA86 PO; -PANT20TA2 PO; +PANT20TA6 PO; +PANT40TA29 PO; -PANT40TA3 PO
[2020-12-09 22:23] LABS: BLOOD UREA NITROGEN 18 MG/DL (7-18); GLOMERULAR FILTRATION RATE > 60.0 (>39)
== END ==
LOC: M LAB 15:18
PROVIDERS: ATTEND Otolaryngology
DX: R22.1 Localized swelling, mass and lump, neck (principal)

== ENCOUNTER → 2021-01-11 | Outpatient (CLI) | payer MEDICARE, MEDICAID ==
[~2021-01-11] MED LIST changes: +BUPR300T92 PO; +ISOVUE-370 76% 100ML VIAL As Ordered ONE
--- NOTE | 2021-01-11 11:43 | REP ---
INDICATION: SWELLING/MASS/LUMP IN NECK, CAROTID STENOSIS COMPARISON: None. TECHNIQUE: Real-time ultrasound evaluation and duplex Doppler interrogation of the extracranial carotid vasculature is performed. FINDINGS: There is moderate calcific plaquing in the carotid bulbs extending into the internal and external carotid arteries. There is elevated peak systolic velocity in the internal carotid arteries bilaterally suggesting bilateral stenosis between 50 and 79%. There is normal direction of flow in the right vertebral artery. Left vertebral artery is not visualized. RIGHT LEFT Peak systolic velocity ICA 200.5 cm/s 179.3 cm/s End diastolic velocity ICA 44.2 cm/s 29.2 cm/s Peak systolic velocity CCA 82.8 cm/s 102.4cm/s Peak systolic velocity ECA 127.0 cm/s 357.2 cm/s ICA/CCA ratio 2.42 1.75 IMPRESSION: Moderate calcific plaque in the bilateral carotid bulbs and internal carotid arteries. Elevated peak systolic velocity in the internal carotid arteries bilaterally suggesting bilateral stenosis 50-79%. <Electronically signed by George Peterson > 01/11/21 [id number]
--- NOTE | 2021-01-11 13:48 | REP ---
INDICATION: SWELLING/MASS/LUMP IN NECK, CAROTID STENOSIS COMPARISON: Comparison CT study of the neck soft tissues December 09, 2020. Comparison is made with today's carotid sonography. TECHNIQUE: Contrast enhancement dose is 100 mL of intravenous Isovue 370. Helical scanning is acquired. 2 mm axial images are re-formatted. Coronal and sagittal MPR images are generated. Coronal and sagittal MIP and oblique MPR images are generated. 3D surface rendered images are generated and viewed rotationally. FINDINGS: There is good opacification of the arterial tree. Some vascular calcification is seen in the aortic arch. Median sternotomy wires are present and there is evidence of a patent coronary artery grafts at the bottom of the imaging field of view. The great vessel origins appear intact although there is some vascular calcification. The left vertebral artery appears to be occluded just beyond its origin. It is small with areas of reconstitution in the lower neck and in the upper neck. Distally, it is patent. The right vertebral artery is widely patent and dominant. There is some atherosclerotic irregularity but no high-grade stenosis at its origin. The common carotid arteries are unremarkable. There is extensive vascular calcification in the carotid bifurcations bilaterally. There is a large calcific plaque in the proximal ICA on the right producing greater than 70% stenosis. There is some calcific plaquing just beyond this as well. The right ICA is intact the distally. On the left, there is vascular calcification and moderate stenosis at the origin of the ICA, 60-70%. The distal ICA on the left is widely patent. The carotid bifurcations and the proximal ICAs approach 1 another in the midline in the retropharyngeal soft tissues. There is moderate vascular calcification in the carotid siphons at the skull base bilaterally. IMPRESSION: 1. Left vertebral artery is occluded at its origin with areas of reconstituted flow in the mid and upper cervical spine region. Right dominant vertebral artery system. 2. Tortuous carotid arteries bilaterally. The carotid bifurcations and proximal ICAs approach 1 another in the midline in the retropharyngeal soft tissues. 3. Bilateral proximal ICA stenoses due to calcific plaquing, greater than 70% stenosis on the right and 60-70% stenosis on the left. <Electronically signed by Blair Mcgowan > 01/11/21 [id number]
== END ==
LOC: M RAD 10:35
PROVIDERS: ATTEND Otolaryngology
DX: R22.1 Localized swelling, mass and lump, neck (principal); I65.29 Occlusion and stenosis of unspecified carotid artery
CPT/HCPCS: 70498; 93880; Q9967

== ENCOUNTER 2021-01-12 15:00 | Emergency (ER) | payer MEDICARE, MEDICAID ==
[~2021-01-12] VITALS: Ht 149.9 cm; Wt 89.5 kg
[~2021-01-12 15:00] MED LIST changes: -BUPR300T92 PO; -ISOVUE-370 76% 100ML VIAL As Ordered ONE
[2021-01-12] MEDS ORDERED: EMLA CREAM 5GM TUBE (LIDOCAINE/PRILOCAINE) TOP ONE (16:40)
[2021-01-12] MEDS ORDERED: ACETAMINOPHEN 500 MG TAB PO ONE (16:40)
--- NOTE | 2021-01-12 17:00 | REP ---
INDICATION: fall, hit head, lac. COMPARISON: None. TECHNIQUE: 4.5 mm contiguous transaxial sections were obtained from the skull base to the cerebral convexities with thin cuts through the posterior fossa without the administration of intravenous contrast. FINDINGS: The ventricles and sulci are consistent with the patient's age. There are no extra-axial fluid collections. There is no mass effect. Patchy scattered deep white matter lucencies are seen in no particular fashion. There is no evidence of an intracranial hemorrhage. There is right sided soft tissue swelling over the parietal bone. This is consistent with a hematoma. The orbital and petrous structures, cerebellopontine angles, and posterior fossa are unremarkable. The sella turcica, cavernous, and paracavernous structures are essentially unremarkable. The visualized portions of the paranasal sinuses and mastoid air cells are clear. Images of the skull base show no gross abnormality. IMPRESSION: Likely age-related deep cerebral white matter ischemic changes, however, consider follow-up with brain MRI to search for restricted diffusion if clinically relevant. There is evidence of a right-sided soft tissue hematoma as described above. <Electronically signed by Ernesto Rangel > 01/12/21 [id number]
--- NOTE | 2021-01-12 17:02 | REP ---
INDICATION: fall, hit head, lac. TECHNIQUE: Standard helical technique using 2 mm increments and reconstructed in both sagittal and coronal planes. FINDINGS: Vertebral body height and alignment is within normal limits. There is degenerative disc space narrowing at every level particularly C5-6. Anterior and posterior osteophytic ridging is seen C4-5, C5-6, C6-7. The facet joints are well aligned bilaterally. There is no evidence of an acute fracture or subluxation. There is no abnormal paraspinal soft tissue swelling. IMPRESSION: Chronic changes as described above. No evidence of an acute fracture <Electronically signed by Ernesto Rangel > 01/12/21 [id number]
--- NOTE | 2021-01-12 17:09 | REP ---
INDICATION: fall hit head and shoulder, pt tender COMPARISON: 11/07/2018. TECHNIQUE: Three views right shoulder. 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 Large spurs are noted of the glenoid. There is erosive change at the distal end of the clavicle. There is no acute fracture. IMPRESSION: Severe erosive arthropathy again noted with no radiographic evidence of fracture or dislocation. <Electronically signed by George Peterson > 01/12/21 1435
[2021-01-12] MEDS ORDERED: BUPR300T92 PO (17:38)
[2021-01-12 17:45] VITALS: BP 168/92
[2021-01-12] MEDS ORDERED: ACETAMINOPHEN TAB 650MG DOSE (2X325MG) PO ONE (18:00)
== END 2021-01-12 18:04 | disposition home or self-care (01) ==
LOC: M ED 15:00 → EDBD 15:00 → M ED 18:04
DX: S00.03XA Contusion of scalp, initial encounter (principal); M25.511 Pain in right shoulder; W01.198A Fall on same level from slipping, tripping and stumbling with subsequent striking against other object, initial encounter; Y92.019 Unspecified place in single-family (private) house as the place of occurrence of the external cause; Y93.9 Activity, unspecified; Y99.9 Unspecified external cause status; M50.022 Cervical disc disorder at C5-C6 level with myelopathy; M25.78 Osteophyte, vertebrae; M25.711 Osteophyte, right shoulder; M15.4 Erosive (osteo)arthritis; I10 Essential (primary) hypertension; J44.9 Chronic obstructive pulmonary disease, unspecified; F17.200 Nicotine dependence, unspecified, uncomplicated; Z88.1 Allergy status to other antibiotic agents; Z79.899 Other long term (current) drug therapy

== ENCOUNTER → 2021-07-28 | Outpatient (CLI) | payer OTHER, MEDICAID ==
[~2021-07-28] MED LIST changes: +BUPR300T92 PO; +E-Z-GAS II EFFERVESCENT PACKET (SODIUM BICARB./CITRIC ACID/SIMETHICONE) As Ordered ONE; +E-Z-HD 98% w/w 340GM SUSP BTL As Ordered ONE; +E-Z-PAQUE 96% w/w SUSP 176GM BTL As Ordered ONE; +POTA-149 PO; -POTA10TA16 PO
== END ==
LOC: M RAD 10:04
PROVIDERS: ATTEND Physician Assistant Medical
DX: R47.02 Dysphasia (principal)

== ENCOUNTER → 2022-03-10 | Outpatient (CLI) | payer OTHER, MEDICAID ==
[~2022-03-10] MED LIST changes: +ALBU2.5V10 INH; -ALBU83IN INH; -E-Z-GAS II EFFERVESCENT PACKET (SODIUM BICARB./CITRIC ACID/SIMETHICONE) As Ordered ONE; -E-Z-HD 98% w/w 340GM SUSP BTL As Ordered ONE; -E-Z-PAQUE 96% w/w SUSP 176GM BTL As Ordered ONE
== END ==
LOC: M RAD 10:16
PROVIDERS: ATTEND Surgery Vascular Surgery
DX: I65.23 Occlusion and stenosis of bilateral carotid arteries (principal)

== ENCOUNTER → 2022-03-25 | Outpatient (CLI) | payer OTHER, MEDICAID | LOC: M WHC 12:24 | PROVIDERS: ATTEND Internal Medicine | DX: M81.0 Age-related osteoporosis without current pathological fracture (principal) ==

== ENCOUNTER → 2022-03-27 | Outpatient (REF) | payer OTHER, MEDICAID | PROVIDERS: ATTEND Internal Medicine | DX: J02.9 Acute pharyngitis, unspecified (principal) ==

== ENCOUNTER → 2022-05-13 | Outpatient (CLI) | payer MEDICARE, MEDICAID | LOC: M WHC 12:28 | PROVIDERS: ATTEND Internal Medicine | DX: Z12.31 Encounter for screening mammogram for malignant neoplasm of breast (principal) ==

== ENCOUNTER → 2022-07-08 | Outpatient (CLI) | payer MEDICARE, MEDICAID | LOC: M WHC 14:00 | PROVIDERS: ATTEND Internal Medicine | DX: Z12.31 Encounter for screening mammogram for malignant neoplasm of breast (principal) ==

== ENCOUNTER → 2022-10-10 | Outpatient (REF) | payer MEDICARE, MEDICAID ==
[2022-10-10 17:34] LABS: C REACTIVE PROTEIN QUANTITATIV 2.1 MG/DL (<1.0)
[2022-10-10 17:35] LABS: RHEUMATOID FACTOR QUANT 6.4 IU/ML (<14)
[2022-10-12 19:07] LABS: ANTI DOUBLE STRAND-DNA AB <1 IU/mL (0-9); ANTINUCLEAR ANTIBODIES DIRECT Positive (Negative); CYCLIC CITRULLINATED PEPTIDE < 1 units (0-19); RNP ANTIBODIES 1.2 AI (0.0-0.9); SJOGREN'S ANTI SS-A <0.2 AI (0.0-0.9); SJOGREN'S ANTI SS-B <0.2 AI (0.0-0.9); SMITH ANTIBODIES <0.2 AI (0.0-0.9)
== END ==
LOC: M LAB REF 16:15
PROVIDERS: ATTEND Internal Medicine
DX: M19.90 Unspecified osteoarthritis, unspecified site (principal)

== ENCOUNTER → 2022-10-14 | Outpatient (CLI) | payer MEDICARE, MEDICAID | LOC: M RAD 11:13 | PROVIDERS: ATTEND Internal Medicine | DX: M25.512 Pain in left shoulder (principal) ==

== ENCOUNTER → 2022-11-01 | Outpatient (CLI) | payer MEDICARE, MEDICAID | LOC: M PLAIMG 14:22 | PROVIDERS: ATTEND Internal Medicine | DX: M25.551 Pain in right hip (principal) ==

== ENCOUNTER 2023-01-10 09:17 | Outpatient (RCR) | payer MEDICARE, MEDICAID | END 2023-01-25 | LOC: M PT 09:17 | PROVIDERS: ATTEND Orthopaedic Surgery | DX: M19.011 Primary osteoarthritis, right shoulder (principal) ==

== ENCOUNTER 2023-01-30 10:18 | Outpatient (RCR) | payer MEDICAID, MEDICARE ==
[2023-02-07] MEDS ORDERED: FLON1SPR NARES (18:17)
[2023-02-07] MEDS ORDERED: ALBU8.5H INH (18:17)
[2023-02-07] MEDS ORDERED: ASPI81TA26 PO (18:17)
[2023-02-07] MEDS ORDERED: MONT10TA97 PO (18:17)
[2023-02-07] MEDS ORDERED: SENN-186 PO (18:17)
[2023-02-07] MEDS ORDERED: RAMI1CAP26 PO (18:17)
[2023-02-07] MEDS ORDERED: CENT1TAB PO (18:17)
[2023-02-07] MEDS ORDERED: CALCCAP4 PO (18:17)
[2023-02-07] MEDS ORDERED: CLOP75TA2 PO (18:17)
[2023-02-07] MEDS ORDERED: ACET-841 PO (18:17)
[2023-02-07] MEDS ORDERED: OPTI0.5D5 OU (18:17)
[2023-02-09] MEDS ORDERED: DELS30LI8 PO (08:45)
[2023-02-09] MEDS ORDERED: PRED10TA2 PO (08:45)
[2023-02-10] MEDS ORDERED: PRED10TA2 PO (11:25)
[2023-02-10] MEDS ORDERED: DELS30LI8 PO (11:25)
== END 2023-02-24 ==
LOC: M PT 10:18
PROVIDERS: ATTEND Internal Medicine
DX: M19.90 Unspecified osteoarthritis, unspecified site (principal); R53.1 Weakness; R52 Pain, unspecified

== ENCOUNTER 2023-02-07 11:46 | Inpatient (IN) | payer MEDICARE ==
[~2023-02-07] VITALS: Ht 134.6 cm; Wt 90.0 kg
[2023-02-07 12:36] LABS: VENOUS BASE EXCESS 4.8 (-2.0-2.0); VENOUS HCO3 30.6 MMOL/L (23.0-27.0); VENOUS O2 SATURATION 73.1 % (60.0-80.0); VENOUS PARTIAL PRESSURE O2 38.4 mmHg (30.0-50.0); VENOUS PH 7.405 UNITS (7.330-7.430); VENOUS STANDARD HCO3 28.2 MMOL/L; VENOUS TOTAL CO2 32.2 MMOL/L (24.0-28.0)
[2023-02-07 12:43] LABS: BASO % 0.1 % (0.0-1.0); EOS % 0.4 % (0.0-3.0); HEMATOCRIT 39.5 % (36.0-47.0); HEMOGLOBIN 12.6 g/dl (12.0-15.5); LYMPH # 0.4 10^3/uL (1.5-5.0); LYMPH % 5.1 % (24.0-44.0); MEAN CORPUSCULAR HEMOGLOBIN 29.6 pg (27.0-33.0); MEAN CORPUSCULAR HGB CONC 31.9 g/dl (32.0-36.5); MEAN CORPUSCULAR VOLUME 92.9 fl (80.0-96.0); MONO # 0.9 10^3/uL (0.0-0.8); MONO % 10.7 % (2.0-8.0); NEUTROPHILS # 6.8 10^3/uL (1.5-8.5); NEUTROPHILS % 83.2 % (36.0-66.0); PLATELET COUNT, AUTOMATED 209 10^3/uL (150-450); RED BLOOD COUNT 4.25 10^6/uL (4.00-5.40); WHITE BLOOD COUNT 8.1 10^3/uL (4.0-10.0)
[2023-02-07 13:06] LABS: CK-MB VALUE MASS 1.2 NG/ML (<3.6)
[2023-02-07 13:09] LABS: ALKALINE PHOSPHATASE 113 U/L (46-116); ALT/SGPT 38 U/L (7.0-40); AST/SGOT 32 U/L (<34); BILIRUBIN,DIRECT 0.2 MG/DL (<0.4); BILIRUBIN,TOTAL 0.5 MG/DL (0.3-1.2); BLOOD UREA NITROGEN 10 MG/DL (9-23); CALCIUM LEVEL 8.5 MG/DL (8.3-10.6); CARBON DIOXIDE LEVEL 30 MMOL/L (20-31); CHLORIDE LEVEL 99 MMOL/L (98-107); GLOMERULAR FILTRATION RATE > 60.0 (>39); GLUCOSE, FASTING 140 MG/DL (74-106); SODIUM LEVEL 138 MMOL/L (136-145); TOTAL PROTEIN 7.1 G/DL (5.7-8.2)
[2023-02-07 13:10] LABS: THYROXINE (T4) 9.7 UG/DL (4.5-10.9)
[2023-02-07 13:11] LABS: THYROID STIMULATING HORMONE 0.641 uIU/ML (0.55-4.78)
[2023-02-07 13:12] LABS: CPK CREATINE PHOSPHOKINASE 122 U/L (34-145); MB/CK RELATIVE INDEX 0.98 (< OR =4)
[2023-02-07] MEDS ORDERED: ACETAMINOPHEN TAB 650MG DOSE (2X325MG) PO ONE (13:15)
[2023-02-07 13:26] LABS: RSV AMPLIFICATION NEGATIVE (NEGATIVE)
[2023-02-07] MEDS ORDERED: MOM 30ML SUSPENSION UDC PO PRN (17:20)
[2023-02-07] MEDS ORDERED: CENT1TAB PO (18:17)
[2023-02-07] MEDS ORDERED: ASPI81TA26 PO (18:17)
[2023-02-07] MEDS ORDERED: SENN-186 PO (18:17)
[2023-02-07] MEDS ORDERED: RAMI1CAP26 PO (18:17)
[2023-02-07] MEDS ORDERED: CALCCAP4 PO (18:17)
[2023-02-07] MEDS ORDERED: FLON1SPR NARES (18:17)
[2023-02-07] MEDS ORDERED: ACET-841 PO (18:17)
[2023-02-07] MEDS ORDERED: MONT10TA97 PO (18:17)
[2023-02-07] MEDS ORDERED: ALBU8.5H INH (18:17)
[2023-02-07] MEDS ORDERED: CLOP75TA2 PO (18:17)
[2023-02-07] MEDS ORDERED: OPTI0.5D5 OU (18:17)
[2023-02-07] MEDS ORDERED: amLODIPine 5 MG TAB PO ONE (18:20)
[2023-02-07] MEDS ORDERED: HOME MED LIST COMPLETE! XX SCH (18:25)
[2023-02-07] MEDS ORDERED: LORATADINE 10 MG TAB PO PRN (18:50)
[2023-02-07] MEDS ORDERED: REMDESIVIR 200 MG in NS 250 ML IV ONE (20:00)
[2023-02-07] MEDS ORDERED: ALBUTEROL SULFATE 2.5MG/0.5ML INH NEB SOLN NEB SCH (20:00)
[2023-02-07] MEDS: SYMBICORT 160/4.5MCG INHALER 6GM INH SCH (20:11)
[2023-02-07] MEDS ORDERED: NIRMATRELVIR/RITONAVIR CO-PACK (EMERGENCY USE AUTH) PO SCH (21:00)
[2023-02-07] MEDS ORDERED: SODIUM CHLORIDE 0.9% INJ 10 ML SYR IV ONE (21:00)
[2023-02-07 22:10] VITALS: BP 150/76; TEMP 98.1; O2SAT 98
[2023-02-07] MEDS: DEXTROMETHORPHAN 60MG/10ML SUSP 90ML BTL(DELSYM) PO SCH (22:10)
[2023-02-07] MEDS: DOCUSATE SODIUM 100MG CAPSULE PO SCH (22:10)
[2023-02-07] MEDS: SENNA 8.6 MG TAB (SENOKOT) PO SCH (22:10)
[2023-02-07] MEDS: ramipriL 5 MG CAP PO SCH (22:10)
[2023-02-07] MEDS: MORPHINE 15 MG SA TAB PO SCH (22:11)
[2023-02-07] MEDS: PANTOPRAZOLE 40MG TAB (PROTONIX) PO SCH (22:11)
[2023-02-07] MEDS: MONTELUKAST 10 MG TAB PO SCH (22:11)
[2023-02-07] MEDS: dexAMETHasone 20MG/5ML VIAL IV SCH (22:12)
[2023-02-07] MEDS: ENOXAPARIN 40MG/0.4ML SYRINGE (J1650 PER 10MG) SC SCH (22:12)
[2023-02-08] MEDS: COMBIVENT RESPIMAT 100-20MCG INHALER 4GM INH SCH ×7 (00:08→23:23)
[2023-02-08 00:17] VITALS: O2SAT 97
[2023-02-08 05:42] VITALS: BP 173/91; TEMP 97.3; O2SAT 94
[2023-02-08 05:51] VITALS: BP 204/104
[2023-02-08] MEDS ORDERED: **hydrALAZINE** 10 MG TAB PO PRN (06:00)
[2023-02-08] MEDS: ACETAMINOPHEN TAB 650MG DOSE (2X325MG) PO PRN ×2 (06:15→13:29)
[2023-02-08 06:16] LABS: BASO % 0.2 % (0.0-1.0); HEMATOCRIT 40.1 % (36.0-47.0); HEMOGLOBIN 12.7 g/dl (12.0-15.5); LYMPH # 0.4 10^3/uL (1.5-5.0); MEAN CORPUSCULAR HGB CONC 31.7 g/dl (32.0-36.5); MEAN CORPUSCULAR VOLUME 94.6 fl (80.0-96.0); MONO # 0.2 10^3/uL (0.0-0.8); MONO % 3.3 % (2.0-8.0); NEUTROPHILS # 5.8 10^3/uL (1.5-8.5); PLATELET COUNT, AUTOMATED 209 10^3/uL (150-450); RED BLOOD COUNT 4.24 10^6/uL (4.00-5.40); WHITE BLOOD COUNT 6.5 10^3/uL (4.0-10.0)
[2023-02-08 06:34] LABS: ALBUMIN 3.7 G/DL (3.2-5.2); ALKALINE PHOSPHATASE 105 U/L (46-116); ALT/SGPT 35 U/L (7.0-40); AST/SGOT 33 U/L (<34); BILIRUBIN,DIRECT 0.1 MG/DL (<0.4); BILIRUBIN,TOTAL 0.3 MG/DL (0.3-1.2); BLOOD UREA NITROGEN 12 MG/DL (9-23); CALCIUM LEVEL 8.5 MG/DL (8.3-10.6); CARBON DIOXIDE LEVEL 32 MMOL/L (20-31); CHLORIDE LEVEL 101 MMOL/L (98-107); CREATININE FOR GFR 0.65 MG/DL (0.55-1.30); GLOMERULAR FILTRATION RATE > 60.0 (>39); GLUCOSE, FASTING 161 MG/DL (74-106); POTASSIUM SERUM 3.9 MMOL/L (3.5-5.1); SODIUM LEVEL 140 MMOL/L (136-145); TOTAL PROTEIN 6.8 G/DL (5.7-8.2)
[2023-02-08] MEDS ORDERED: cloNIDine 0.1MG TABLET PO ONE (07:00)
[2023-02-08] MEDS: SYMBICORT 160/4.5MCG INHALER 6GM INH SCH ×2 (07:22→21:02)
[2023-02-08] MEDS: TIOTROPIUM INHALER/CAPSULE (SPIRIVA) INH SCH (07:22)
[2023-02-08 07:53] VITALS: BP 122/65; TEMP 96.8; O2SAT 90
[2023-02-08] MEDS: MORPHINE 15 MG SA TAB PO SCH ×2 (09:00→23:06)
[2023-02-08] MEDS: ENOXAPARIN 40MG/0.4ML SYRINGE (J1650 PER 10MG) SC SCH ×2 (10:24→23:07)
[2023-02-08] MEDS: CitaloPRAM (CeleXA) 20 MG TAB PO SCH (10:25)
[2023-02-08] MEDS: buPROPion **XL** TABLET 150MG (WELLBUTRIN XL) PO SCH (10:25)
[2023-02-08] MEDS: ASPIRIN 81MG ENTERIC TABLET PO SCH (10:25)
[2023-02-08] MEDS: ATORVASTATIN 20 MG TAB PO SCH (10:25)
[2023-02-08] MEDS: PANTOPRAZOLE 40MG TAB (PROTONIX) PO SCH ×2 (10:25→23:14)
[2023-02-08] MEDS: FUROSEMIDE 40 MG TAB PO SCH ×2 (10:26→17:11)
[2023-02-08] MEDS: DOCUSATE SODIUM 100MG CAPSULE PO SCH ×2 (10:26→23:06)
[2023-02-08] MEDS: CLOPIDOGREL 75 MG TAB PO SCH (10:27)
[2023-02-08] MEDS: DEXTROMETHORPHAN 60MG/10ML SUSP 90ML BTL(DELSYM) PO SCH ×2 (10:29→23:36)
[2023-02-08] MEDS: dexAMETHasone 20MG/5ML VIAL IV SCH ×2 (10:29→23:04)
[2023-02-08 14:00] VITALS: BP 159/81; TEMP 97.7; O2SAT 95
[2023-02-08] MEDS: ramipriL 5 MG CAP PO SCH (23:04)
[2023-02-08] MEDS: REMDESIVIR 100 MG in NS 250 ML IV SCH (23:04)
[2023-02-08] MEDS: MONTELUKAST 10 MG TAB PO SCH (23:06)
[2023-02-08] MEDS ORDERED: DEXTROMETHORPHAN 60MG/10ML SUSP 90ML BTL(DELSYM) PO SCH (23:12)
[2023-02-08] MEDS: SENNA 8.6 MG TAB (SENOKOT) PO SCH (23:15)
[2023-02-08 23:31] VITALS: BP 158/94; TEMP 97.9; O2SAT 94
[2023-02-09] MEDS: ACETAMINOPHEN TAB 650MG DOSE (2X325MG) PO PRN (01:07)
[2023-02-09] MEDS: SODIUM CHLORIDE 0.9% INJ 10 ML SYR IV SCH ×2 (01:22→23:40)
[2023-02-09] MEDS: COMBIVENT RESPIMAT 100-20MCG INHALER 4GM INH SCH ×5 (03:18→21:26)
[2023-02-09 05:23] VITALS: BP 123/69; TEMP 97.5; O2SAT 97
[2023-02-09] MEDS: SYMBICORT 160/4.5MCG INHALER 6GM INH SCH ×2 (07:30→21:26)
[2023-02-09] MEDS: TIOTROPIUM INHALER/CAPSULE (SPIRIVA) INH SCH (07:30)
[2023-02-09 08:19] LABS: HEMATOCRIT 39.9 % (36.0-47.0); HEMOGLOBIN 12.4 g/dl (12.0-15.5); LYMPH # 0.8 10^3/uL (1.5-5.0); LYMPH % 8.2 % (24.0-44.0); MEAN CORPUSCULAR HEMOGLOBIN 29.7 pg (27.0-33.0); MEAN CORPUSCULAR HGB CONC 31.1 g/dl (32.0-36.5); MEAN CORPUSCULAR VOLUME 95.5 fl (80.0-96.0); MONO # 0.5 10^3/uL (0.0-0.8); MONO % 5.9 % (2.0-8.0); NEUTROPHILS # 7.9 10^3/uL (1.5-8.5); NEUTROPHILS % 85.7 % (36.0-66.0); PLATELET COUNT, AUTOMATED 217 10^3/uL (150-450); RED BLOOD COUNT 4.18 10^6/uL (4.00-5.40); WHITE BLOOD COUNT 9.2 10^3/uL (4.0-10.0)
[2023-02-09 08:43] LABS: BLOOD UREA NITROGEN 16 MG/DL (9-23); CALCIUM LEVEL 8.2 MG/DL (8.3-10.6); CARBON DIOXIDE LEVEL 31 MMOL/L (20-31); CHLORIDE LEVEL 102 MMOL/L (98-107); CREATININE FOR GFR 0.71 MG/DL (0.55-1.30); GLOMERULAR FILTRATION RATE > 60.0 (>39); GLUCOSE, FASTING 136 MG/DL (74-106); POTASSIUM SERUM 4.2 MMOL/L (3.5-5.1); SODIUM LEVEL 138 MMOL/L (136-145)
[2023-02-09] MEDS ORDERED: PRED10TA2 PO (08:45)
[2023-02-09] MEDS ORDERED: DELS30LI8 PO (08:45)
[2023-02-09] MEDS ORDERED: dexAMETHasone 20MG/5ML VIAL IV SCH (09:00)
[2023-02-09] MEDS: ENOXAPARIN 40MG/0.4ML SYRINGE (J1650 PER 10MG) SC SCH ×2 (10:09→20:31)
[2023-02-09] MEDS: CLOPIDOGREL 75 MG TAB PO SCH (10:10)
[2023-02-09] MEDS: ASPIRIN 81MG ENTERIC TABLET PO SCH (10:10)
[2023-02-09] MEDS: buPROPion **XL** TABLET 150MG (WELLBUTRIN XL) PO SCH (10:10)
[2023-02-09] MEDS: DEXTROMETHORPHAN 60MG/10ML SUSP 90ML BTL(DELSYM) PO SCH ×2 (10:10→21:30)
[2023-02-09] MEDS: ATORVASTATIN 20 MG TAB PO SCH (10:10)
[2023-02-09] MEDS: CitaloPRAM (CeleXA) 20 MG TAB PO SCH (10:11)
[2023-02-09] MEDS: FUROSEMIDE 40 MG TAB PO SCH ×2 (10:11→18:00)
[2023-02-09] MEDS: PANTOPRAZOLE 40MG TAB (PROTONIX) PO SCH ×2 (10:11→20:32)
[2023-02-09] MEDS: DOCUSATE SODIUM 100MG CAPSULE PO SCH ×2 (10:11→20:31)
[2023-02-09] MEDS: MORPHINE 15 MG SA TAB PO SCH ×2 (10:11→20:32)
[2023-02-09 14:00] VITALS: BP 125/64; TEMP 97.7; O2SAT 97
[2023-02-09] MEDS: REMDESIVIR 100 MG in NS 250 ML IV SCH (20:30)
[2023-02-09] MEDS: SENNA 8.6 MG TAB (SENOKOT) PO SCH (20:31)
[2023-02-09] MEDS: MONTELUKAST 10 MG TAB PO SCH (20:33)
[2023-02-09 20:41] VITALS: BP 149/83
[2023-02-09] MEDS: ramipriL 5 MG CAP PO SCH (20:41)
[2023-02-09 22:10] VITALS: BP 147/84; TEMP 97.5; O2SAT 99
[2023-02-10] MEDS: COMBIVENT RESPIMAT 100-20MCG INHALER 4GM INH SCH ×4 (00:36→11:18)
[2023-02-10 05:55] VITALS: BP 142/78; TEMP 97; O2SAT 97
[2023-02-10 06:58] LABS: BASO % 0.1 % (0.0-1.0); HEMATOCRIT 37.9 % (36.0-47.0); LYMPH # 1.7 10^3/uL (1.5-5.0); MEAN CORPUSCULAR HEMOGLOBIN 30.2 pg (27.0-33.0); MEAN CORPUSCULAR HGB CONC 31.7 g/dl (32.0-36.5); MEAN CORPUSCULAR VOLUME 95.2 fl (80.0-96.0); MONO # 0.9 10^3/uL (0.0-0.8); MONO % 8.6 % (2.0-8.0); NEUTROPHILS # 7.5 10^3/uL (1.5-8.5); NEUTROPHILS % 73.9 % (36.0-66.0); PLATELET COUNT, AUTOMATED 196 10^3/uL (150-450); RED BLOOD COUNT 3.98 10^6/uL (4.00-5.40); WHITE BLOOD COUNT 10.2 10^3/uL (4.0-10.0)
[2023-02-10 07:29] LABS: BLOOD UREA NITROGEN 18 MG/DL (9-23); CALCIUM LEVEL 8.2 MG/DL (8.3-10.6); CARBON DIOXIDE LEVEL 32 MMOL/L (20-31); CHLORIDE LEVEL 100 MMOL/L (98-107); CREATININE FOR GFR 0.73 MG/DL (0.55-1.30); GLOMERULAR FILTRATION RATE > 60.0 (>39); GLUCOSE, FASTING 87 MG/DL (74-106); POTASSIUM SERUM 3.2 MMOL/L (3.5-5.1); SODIUM LEVEL 140 MMOL/L (136-145)
[2023-02-10] MEDS: SYMBICORT 160/4.5MCG INHALER 6GM INH SCH (08:10)
[2023-02-10] MEDS: TIOTROPIUM INHALER/CAPSULE (SPIRIVA) INH SCH (08:10)
[2023-02-10] MEDS ORDERED: predniSONE 10MG TAB PO SCH (09:00)
[2023-02-10] MEDS: ATORVASTATIN 20 MG TAB PO SCH (10:24)
[2023-02-10] MEDS: CitaloPRAM (CeleXA) 20 MG TAB PO SCH (10:25)
[2023-02-10] MEDS: MORPHINE 15 MG SA TAB PO SCH (10:25)
[2023-02-10] MEDS: DEXTROMETHORPHAN 60MG/10ML SUSP 90ML BTL(DELSYM) PO SCH (10:31)
[2023-02-10] MEDS: FUROSEMIDE 40 MG TAB PO SCH (10:31)
[2023-02-10] MEDS: CLOPIDOGREL 75 MG TAB PO SCH (10:32)
[2023-02-10] MEDS: DOCUSATE SODIUM 100MG CAPSULE PO SCH (10:32)
[2023-02-10] MEDS: PANTOPRAZOLE 40MG TAB (PROTONIX) PO SCH (10:32)
[2023-02-10] MEDS: ENOXAPARIN 40MG/0.4ML SYRINGE (J1650 PER 10MG) SC SCH (10:32)
[2023-02-10] MEDS: ASPIRIN 81MG ENTERIC TABLET PO SCH (10:32)
[2023-02-10] MEDS: buPROPion **XL** TABLET 150MG (WELLBUTRIN XL) PO SCH (10:33)
[2023-02-10] MEDS ORDERED: DELS30LI8 PO (11:25)
[2023-02-10] MEDS ORDERED: PRED10TA2 PO (11:25)
[2023-02-10] MEDS ORDERED: POTASSIUM CHLORIDE 10MEQ SR TABLET PO ONE (11:30)
== END 2023-02-10 12:00 | DRG 177 ==
LOC: M ED 11:46 → EDBD 11:46 → M ED INP 17:17 → ENRESERV 20:35 → CANRESERV 20:50 → ENRESERV 20:50 → M MS5PR 21:20
PROVIDERS: ADMIT Internal Medicine Nephrology; ATTEND Internal Medicine Nephrology
PROC: 3E0333Z Introduction of Anti-inflammatory into Peripheral Vein, Percutaneous Approach (ICD-10-PCS; principal; 2023-02-07)
PROC: XW033E5 Introduction of Remdesivir Anti-infective into Peripheral Vein, Percutaneous Approach, New Technology Group 5 (ICD-10-PCS; 2023-02-07)
DX: U07.1 COVID-19 (principal); J12.82 Pneumonia due to coronavirus disease 2019; J44.0 Chronic obstructive pulmonary disease with (acute) lower respiratory infection; Z68.42 Body mass index [BMI] 45.0-49.9, adult; J44.1 Chronic obstructive pulmonary disease with (acute) exacerbation; G47.33 Obstructive sleep apnea (adult) (pediatric); E66.01 Morbid (severe) obesity due to excess calories; J45.909 Unspecified asthma, uncomplicated; I10 Essential (primary) hypertension; I25.10 Atherosclerotic heart disease of native coronary artery without angina pectoris; R26.89 Other abnormalities of gait and mobility; E78.5 Hyperlipidemia, unspecified; M19.90 Unspecified osteoarthritis, unspecified site; G47.00 Insomnia, unspecified; F41.9 Anxiety disorder, unspecified; F32.A Depression, unspecified; K58.9 Irritable bowel syndrome, unspecified; K21.9 Gastro-esophageal reflux disease without esophagitis; Z98.41 Cataract extraction status, right eye; Z98.42 Cataract extraction status, left eye; Z90.79 Acquired absence of other genital organ(s); Z79.82 Long term (current) use of aspirin; Z79.899 Other long term (current) drug therapy; Z88.1 Allergy status to other antibiotic agents; Z95.5 Presence of coronary angioplasty implant and graft

== ENCOUNTER → 2023-02-14 | Outpatient (REF) | payer MEDICARE, MEDICAID ==
[~2023-02-14] MED LIST changes: +ACET-841 PO; +ALBU8.5H INH; +ASPI81TA26 PO; +CALCCAP4 PO; +CENT1TAB PO; +CLOP75TA2 PO; +DELS30LI8 PO; +FLON1SPR NARES; +MONT10TA97 PO; +OPTI0.5D5 OU; +PRED10TA2 PO; +RAMI1CAP26 PO; +SENN-186 PO
[2023-02-14 17:42] LABS: BACTERIA, URINE AUTO NEGATIVE (NEGATIVE); RBC, URINE AUTO 1 /HPF (0-3); SQUAMOUS EPITHELIAL CELL UR AU 0 /HPF (0-6); WBC, URINE AUTO 0 /HPF (0-3)
== END ==
LOC: M LAB REF 17:07
PROVIDERS: ATTEND Internal Medicine
DX: R30.0 Dysuria (principal)

== ENCOUNTER 2023-02-16 16:17 | Emergency (ER) | payer MEDICARE, MEDICAID ==
[~2023-02-16] VITALS: Ht 134.6 cm; Wt 97.8 kg
[2023-02-16 18:49] LABS: BASO % 0.2 % (0.0-1.0); HEMATOCRIT 41.5 % (36.0-47.0); HEMOGLOBIN 13.2 g/dl (12.0-15.5); LYMPH # 0.8 10^3/uL (1.5-5.0); LYMPH % 6.2 % (24.0-44.0); MEAN CORPUSCULAR HGB CONC 31.8 g/dl (32.0-36.5); MEAN CORPUSCULAR VOLUME 94.3 fl (80.0-96.0); MONO # 0.5 10^3/uL (0.0-0.8); MONO % 3.8 % (2.0-8.0); NEUTROPHILS # 11.5 10^3/uL (1.5-8.5); NEUTROPHILS % 88.6 % (36.0-66.0); PLATELET COUNT, AUTOMATED 260 10^3/uL (150-450); WHITE BLOOD COUNT 12.9 10^3/uL (4.0-10.0)
[2023-02-16 18:53] LABS: INR 0.89; PROTHROMBIN TIME 12.2 SECONDS (12.5-14.5)
[2023-02-16 18:54] LABS: PARTIAL THROMBOPLASTIN TIME 26.3 SECONDS (24.8-34.2)
[2023-02-16 19:05] LABS: BLOOD UREA NITROGEN 21 MG/DL (9-23); CALCIUM LEVEL 9.6 MG/DL (8.3-10.6); CARBON DIOXIDE LEVEL 37 MMOL/L (20-31); CHLORIDE LEVEL 97 MMOL/L (98-107); CK-MB VALUE MASS 1.7 NG/ML (<3.6); CREATININE FOR GFR 0.79 MG/DL (0.55-1.30); GLOMERULAR FILTRATION RATE > 60.0 (>39); GLUCOSE, FASTING 137 MG/DL (74-106); POTASSIUM SERUM 3.9 MMOL/L (3.5-5.1); SODIUM LEVEL 140 MMOL/L (136-145)
[2023-02-16 19:09] LABS: THYROID STIMULATING HORMONE 0.382 uIU/ML (0.55-4.78)
[2023-02-16 19:17] LABS: CPK CREATINE PHOSPHOKINASE 79 U/L (34-145); MB/CK RELATIVE INDEX 2.15 (< OR =4)
[2023-02-16 20:41] LABS: CK-MB VALUE MASS 2.3 NG/ML (<3.6)
[2023-02-16 20:42] LABS: MB/CK RELATIVE INDEX 3.53 (< OR =4)
[2023-02-16 21:30] VITALS: BP 154/88; TEMP 98.1; O2SAT 97
== END 2023-02-16 21:33 | disposition home or self-care (01) ==
LOC: M ED 16:17 → EDBD 16:17 → M ED 21:33
DX: M25.511 Pain in right shoulder (principal); W01.0XXA Fall on same level from slipping, tripping and stumbling without subsequent striking against object, initial encounter; E66.9 Obesity, unspecified; I49.1 Atrial premature depolarization; K21.9 Gastro-esophageal reflux disease without esophagitis; I10 Essential (primary) hypertension; G47.33 Obstructive sleep apnea (adult) (pediatric); F32.A Depression, unspecified; F41.9 Anxiety disorder, unspecified; J44.9 Chronic obstructive pulmonary disease, unspecified; Z88.1 Allergy status to other antibiotic agents; Z86.79 Personal history of other diseases of the circulatory system; Z79.52 Long term (current) use of systemic steroids; Z79.811 Long term (current) use of aromatase inhibitors; Z79.899 Other long term (current) drug therapy

== ENCOUNTER → 2023-02-16 | Outpatient (REF) | payer MEDICARE, MEDICAID | LOC: M LAB REF 17:28 | PROVIDERS: ATTEND Nurse Practitioner Family | DX: J44.9 Chronic obstructive pulmonary disease, unspecified (principal) ==

== ENCOUNTER 2023-03-14 14:48 | Inpatient (IN) | payer MEDICARE, MEDICAID ==
[~2023-03-14] VITALS: Ht 134.6 cm; Wt 99.5 kg
[2023-03-14 16:33] LABS: VENOUS BASE EXCESS 6.1 (-2.0-2.0); VENOUS HCO3 33.4 MMOL/L (23.0-27.0); VENOUS O2 SATURATION 70.8 % (60.0-80.0); VENOUS PARTIAL PRESSURE CO2 60.7 mmHg (38.0-50.0); VENOUS PARTIAL PRESSURE O2 38.8 mmHg (30.0-50.0); VENOUS PH 7.358 UNITS (7.330-7.430); VENOUS STANDARD HCO3 29.3 MMOL/L; VENOUS TOTAL CO2 35.2 MMOL/L (24.0-28.0)
[2023-03-14 16:35] LABS: BASO % 0.3 % (0.0-1.0); EOS # 0.3 10^3/uL (0.0-0.5); HEMATOCRIT 38.6 % (36.0-47.0); LYMPH # 1.4 10^3/uL (1.5-5.0); LYMPH % 15.4 % (24.0-44.0); MEAN CORPUSCULAR HEMOGLOBIN 30.5 pg (27.0-33.0); MEAN CORPUSCULAR HGB CONC 31.1 g/dl (32.0-36.5); MONO # 0.8 10^3/uL (0.0-0.8); MONO % 8.3 % (2.0-8.0); NEUTROPHILS # 6.6 10^3/uL (1.5-8.5); NEUTROPHILS % 72.2 % (36.0-66.0); PLATELET COUNT, AUTOMATED 235 10^3/uL (150-450); RED BLOOD COUNT 3.94 10^6/uL (4.00-5.40); WHITE BLOOD COUNT 9.1 10^3/uL (4.0-10.0)
[2023-03-14 17:00] LABS: CK-MB VALUE MASS 2.2 NG/ML (<3.6)
[2023-03-14 17:02] LABS: ALBUMIN 3.7 G/DL (3.2-5.2); ALKALINE PHOSPHATASE 106 U/L (46-116); ALT/SGPT 32 U/L (7.0-40); AST/SGOT 43 U/L (<34); BILIRUBIN,DIRECT < 0.1 MG/DL (<0.4); BILIRUBIN,TOTAL 0.4 MG/DL (0.3-1.2); BLOOD UREA NITROGEN 14 MG/DL (9-23); CALCIUM LEVEL 8.5 MG/DL (8.3-10.6); CARBON DIOXIDE LEVEL 32 MMOL/L (20-31); CHLORIDE LEVEL 101 MMOL/L (98-107); CREATININE FOR GFR 0.69 MG/DL (0.55-1.30); GLOMERULAR FILTRATION RATE > 60.0 (>39); GLUCOSE, FASTING 94 MG/DL (74-106); POTASSIUM SERUM 4.8 MMOL/L (3.5-5.1); SODIUM LEVEL 142 MMOL/L (136-145); TOTAL PROTEIN 6.7 G/DL (5.7-8.2)
[2023-03-14 17:03] LABS: THYROXINE (T4) 9.1 UG/DL (4.5-10.9)
[2023-03-14 17:12] LABS: CPK CREATINE PHOSPHOKINASE 118 U/L (34-145); MB/CK RELATIVE INDEX 1.86 (< OR =4)
[2023-03-14 17:13] LABS: RSV AMPLIFICATION NEGATIVE (NEGATIVE)
[2023-03-14] MEDS ORDERED: ISOVUE-370 76% 100ML VIAL As Ordered ONE (18:54)
[2023-03-14] MEDS ORDERED: methylPREDNISolone 125MG 2ML VIAL IV ONE (19:05)
[2023-03-14] MEDS ORDERED: IPRATROPIUM 0.5MG/ALBUTEROL 2.5MG INH SOL UD 3ML (DUONEB) NEB ONE (19:20)
[2023-03-14] MEDS ORDERED: MED REC IN PROGRESS XX SCH (19:35)
[2023-03-14] MEDS ORDERED: BUSP5TA PO (19:50)
[2023-03-14] MEDS ORDERED: ACE65ERTAB PO (19:50)
[2023-03-14] MEDS ORDERED: HOME MED LIST COMPLETE! XX SCH (19:55)
[2023-03-14] MEDS ORDERED: MOM 30ML SUSPENSION UDC PO PRN (20:25)
[2023-03-14 22:45] VITALS: BP 142/60; TEMP 99.3; O2SAT 95
[2023-03-14] MEDS: DOCUSATE SODIUM 100MG CAPSULE PO SCH (23:16)
[2023-03-15] MEDS ORDERED: ALBUTEROL 90 MCG/ACT 8GM HFA INHALER INH PRN (00:25)
[2023-03-15] MEDS: IPRATROPIUM 0.5MG/ALBUTEROL 2.5MG INH SOL UD 3ML (DUONEB) NEB SCH ×4 (01:45→20:22)
[2023-03-15] MEDS: methylPREDNISolone 40MG 1ML VIAL IV SCH ×4 (04:12→20:27)
[2023-03-15] MEDS: ACETAMINOPHEN TAB 650MG DOSE (2X325MG) PO PRN ×3 (04:56→18:54)
[2023-03-15 05:05] VITALS: BP 160/80; TEMP 97.7; O2SAT 95
[2023-03-15] MEDS ORDERED: ALBUTEROL SULFATE 2.5MG/0.5ML INH NEB SOLN NEB PRN (05:05)
[2023-03-15] MEDS: ADVAIR HFA 115/21MCG INHALER INH SCH ×2 (08:00→20:22)
[2023-03-15] MEDS ORDERED: HEPARIN SOD (PORCINE) 5000UNITS/ML 1ML VIAL/SYRINGE SQ SCH (09:00)
[2023-03-15] MEDS: PANTOPRAZOLE 40MG TAB (PROTONIX) PO SCH ×2 (09:12→20:29)
[2023-03-15] MEDS: ASPIRIN 81MG ENTERIC TABLET PO SCH (09:13)
[2023-03-15] MEDS: CitaloPRAM (CeleXA) 20 MG TAB PO SCH (09:13)
[2023-03-15] MEDS: busPIRone 5 MG TAB PO SCH ×3 (09:13→20:28)
[2023-03-15] MEDS: CLOPIDOGREL 75 MG TAB PO SCH (09:13)
[2023-03-15] MEDS: DOCUSATE SODIUM 100MG CAPSULE PO SCH ×2 (09:13→20:29)
[2023-03-15] MEDS: FUROSEMIDE 40 MG TAB PO SCH ×2 (09:13→20:28)
[2023-03-15] MEDS: MORPHINE 15 MG SA TAB PO SCH ×2 (09:15→20:29)
[2023-03-15] MEDS: ATORVASTATIN 20 MG TAB PO SCH (09:18)
[2023-03-15] MEDS: AZITHROMYCIN 250MG TABLET PO SCH (11:44)
[2023-03-15] MEDS: buPROPion **XL** TABLET 150MG (WELLBUTRIN XL) PO SCH (11:44)
[2023-03-15 11:56] LABS: LIPASE 101 U/L (12-53)
[2023-03-15] MEDS ORDERED: MOM 30ML SUSPENSION UDC PO ONE (12:00)
[2023-03-15 12:07] LABS: PROCALCITONIN <0.04 ng/ml
[2023-03-15 14:00] VITALS: BP 156/82; TEMP 98.7; O2SAT 93
[2023-03-15] MEDS: HEPARIN SOD (PORCINE) 5000UNITS/ML 1ML VIAL/SYRINGE SQ SCH (18:53)
[2023-03-15 19:38] VITALS: BP 156/83; TEMP 97.7; O2SAT 94
[2023-03-15] MEDS: traZODone 50 MG TAB PO SCH (20:28)
[2023-03-15] MEDS: SENNA 8.6 MG TAB (SENOKOT) PO SCH (20:29)
[2023-03-15] MEDS: MONTELUKAST 10 MG TAB PO SCH (20:29)
[2023-03-15] MEDS: ramipriL 5 MG CAP PO SCH (20:30)
[2023-03-16] MEDS: IPRATROPIUM 0.5MG/ALBUTEROL 2.5MG INH SOL UD 3ML (DUONEB) NEB SCH ×4 (01:11→19:16)
[2023-03-16] MEDS: HEPARIN SOD (PORCINE) 5000UNITS/ML 1ML VIAL/SYRINGE SQ SCH ×3 (01:32→17:25)
[2023-03-16 06:30] LABS: BASO % 0.1 % (0.0-1.0); EOS % 0.1 % (0.0-3.0); HEMATOCRIT 38.6 % (36.0-47.0); HEMOGLOBIN 12.1 g/dl (12.0-15.5); LYMPH # 0.8 10^3/uL (1.5-5.0); LYMPH % 5.7 % (24.0-44.0); MEAN CORPUSCULAR HEMOGLOBIN 30.4 pg (27.0-33.0); MEAN CORPUSCULAR HGB CONC 31.3 g/dl (32.0-36.5); MONO # 0.7 10^3/uL (0.0-0.8); NEUTROPHILS # 12.1 10^3/uL (1.5-8.5); NEUTROPHILS % 88.6 % (36.0-66.0); PLATELET COUNT, AUTOMATED 241 10^3/uL (150-450); RED BLOOD COUNT 3.98 10^6/uL (4.00-5.40); WHITE BLOOD COUNT 13.6 10^3/uL (4.0-10.0)
[2023-03-16 06:44] VITALS: BP 157/80; TEMP 98.1; O2SAT 95
[2023-03-16 06:53] LABS: LIPASE 20 U/L (12-53)
[2023-03-16 06:55] LABS: ALBUMIN 3.7 G/DL (3.2-5.2); ALKALINE PHOSPHATASE 95 U/L (46-116); ALT/SGPT 28 U/L (7.0-40); AST/SGOT 27 U/L (<34); BILIRUBIN,TOTAL 0.3 MG/DL (0.3-1.2); BLOOD UREA NITROGEN 14 MG/DL (9-23); CALCIUM LEVEL 8.2 MG/DL (8.3-10.6); CARBON DIOXIDE LEVEL 30 MMOL/L (20-31); CHLORIDE LEVEL 103 MMOL/L (98-107); CREATININE FOR GFR 0.55 MG/DL (0.55-1.30); GLOMERULAR FILTRATION RATE > 60.0 (>39); GLUCOSE, FASTING 127 MG/DL (74-106); MAGNESIUM LEVEL 2.2 MG/DL (1.8-2.4); PHOSPHORUS LEVEL 2.7 MG/DL (2.4-5.1); SODIUM LEVEL 141 MMOL/L (136-145); TOTAL PROTEIN 6.6 G/DL (5.7-8.2)
[2023-03-16] MEDS: ADVAIR HFA 115/21MCG INHALER INH SCH ×2 (07:32→19:16)
[2023-03-16] MEDS: methylPREDNISolone 40MG 1ML VIAL IV SCH (09:11)
[2023-03-16] MEDS: busPIRone 5 MG TAB PO SCH ×3 (09:11→21:51)
[2023-03-16] MEDS: DOCUSATE SODIUM 100MG CAPSULE PO SCH ×2 (09:12→21:50)
[2023-03-16] MEDS: AZITHROMYCIN 250MG TABLET PO SCH (09:12)
[2023-03-16] MEDS: FUROSEMIDE 40 MG TAB PO SCH ×2 (09:12→21:51)
[2023-03-16] MEDS: MORPHINE 15 MG SA TAB PO SCH ×2 (09:12→21:52)
[2023-03-16] MEDS: CLOPIDOGREL 75 MG TAB PO SCH (09:13)
[2023-03-16] MEDS: CitaloPRAM (CeleXA) 20 MG TAB PO SCH (09:13)
[2023-03-16] MEDS: ATORVASTATIN 20 MG TAB PO SCH (09:13)
[2023-03-16] MEDS: PANTOPRAZOLE 40MG TAB (PROTONIX) PO SCH ×2 (09:13→21:51)
[2023-03-16] MEDS: buPROPion **XL** TABLET 150MG (WELLBUTRIN XL) PO SCH (09:13)
[2023-03-16] MEDS: ASPIRIN 81MG ENTERIC TABLET PO SCH (09:13)
[2023-03-16] MEDS ORDERED: ISOVUE-370 76% 100ML VIAL As Ordered ONE ×2 (10:19→10:30)
[2023-03-16 14:00] VITALS: BP 153/79; TEMP 97.9; O2SAT 93
[2023-03-16 20:54] VITALS: BP 170/85; TEMP 97.2; O2SAT 92
[2023-03-16] MEDS: SENNA 8.6 MG TAB (SENOKOT) PO SCH (21:50)
[2023-03-16] MEDS: ramipriL 5 MG CAP PO SCH (21:51)
[2023-03-16] MEDS: traZODone 50 MG TAB PO SCH (21:51)
[2023-03-16] MEDS: MONTELUKAST 10 MG TAB PO SCH (21:51)
[2023-03-16] MEDS: ACETAMINOPHEN TAB 650MG DOSE (2X325MG) PO PRN (21:54)
[2023-03-17] MEDS: IPRATROPIUM 0.5MG/ALBUTEROL 2.5MG INH SOL UD 3ML (DUONEB) NEB SCH ×4 (01:34→19:32)
[2023-03-17] MEDS: HEPARIN SOD (PORCINE) 5000UNITS/ML 1ML VIAL/SYRINGE SQ SCH ×3 (02:09→17:20)
[2023-03-17 06:09] VITALS: BP 130/70; TEMP 97.2; O2SAT 99
[2023-03-17 06:58] LABS: ALBUMIN 3.6 G/DL (3.2-5.2); ALKALINE PHOSPHATASE 89 U/L (46-116); ALT/SGPT 33 U/L (7.0-40); AST/SGOT 45 U/L (<34); BILIRUBIN,TOTAL 0.3 MG/DL (0.3-1.2); BLOOD UREA NITROGEN 10 MG/DL (9-23); CALCIUM LEVEL 7.6 MG/DL (8.3-10.6); CARBON DIOXIDE LEVEL 25 MMOL/L (20-31); CHLORIDE LEVEL 107 MMOL/L (98-107); CREATININE FOR GFR 0.62 MG/DL (0.55-1.30); GLOMERULAR FILTRATION RATE > 60.0 (>39); GLUCOSE, FASTING 88 MG/DL (74-106); PHOSPHORUS LEVEL 3.3 MG/DL (2.4-5.1); POTASSIUM SERUM 4.6 MMOL/L (3.5-5.1); SODIUM LEVEL 144 MMOL/L (136-145); TOTAL PROTEIN 6.2 G/DL (5.7-8.2)
[2023-03-17 07:49] LABS: BASO % 0.2 % (0.0-1.0); EOS % 0.2 % (0.0-3.0); HEMATOCRIT 34.4 % (36.0-47.0); HEMOGLOBIN 10.8 g/dl (12.0-15.5); LYMPH # 2.1 10^3/uL (1.5-5.0); MEAN CORPUSCULAR HEMOGLOBIN 30.9 pg (27.0-33.0); MEAN CORPUSCULAR HGB CONC 31.4 g/dl (32.0-36.5); MEAN CORPUSCULAR VOLUME 98.6 fl (80.0-96.0); MONO % 8.1 % (2.0-8.0); NEUTROPHILS # 9.2 10^3/uL (1.5-8.5); NEUTROPHILS % 73.9 % (36.0-66.0); PLATELET COUNT, AUTOMATED 202 10^3/uL (150-450); RED BLOOD COUNT 3.49 10^6/uL (4.00-5.40); WHITE BLOOD COUNT 12.5 10^3/uL (4.0-10.0)
[2023-03-17 08:09] VITALS: O2SAT 95
[2023-03-17] MEDS: ADVAIR HFA 115/21MCG INHALER INH SCH ×2 (08:09→19:32)
[2023-03-17] MEDS: methylPREDNISolone 40MG 1ML VIAL IV SCH (08:48)
[2023-03-17] MEDS: CLOPIDOGREL 75 MG TAB PO SCH (08:49)
[2023-03-17] MEDS: DOCUSATE SODIUM 100MG CAPSULE PO SCH ×2 (08:49→20:18)
[2023-03-17] MEDS: AZITHROMYCIN 250MG TABLET PO SCH (08:49)
[2023-03-17] MEDS: ASPIRIN 81MG ENTERIC TABLET PO SCH (08:49)
[2023-03-17] MEDS: ATORVASTATIN 20 MG TAB PO SCH (08:49)
[2023-03-17] MEDS: buPROPion **XL** TABLET 150MG (WELLBUTRIN XL) PO SCH (08:49)
[2023-03-17] MEDS: CitaloPRAM (CeleXA) 20 MG TAB PO SCH (08:49)
[2023-03-17] MEDS: busPIRone 5 MG TAB PO SCH ×3 (08:50→20:22)
[2023-03-17] MEDS: MORPHINE 15 MG SA TAB PO SCH ×2 (08:50→20:18)
[2023-03-17] MEDS: FUROSEMIDE 40 MG TAB PO SCH ×2 (08:50→20:18)
[2023-03-17] MEDS: PANTOPRAZOLE 40MG TAB (PROTONIX) PO SCH ×2 (08:50→20:22)
[2023-03-17 13:38] VITALS: O2SAT 94
[2023-03-17 14:48] VITALS: BP 132/74; TEMP 97.9; O2SAT 95
[2023-03-17] MEDS: MONTELUKAST 10 MG TAB PO SCH (20:18)
[2023-03-17] MEDS: traZODone 50 MG TAB PO SCH (20:18)
[2023-03-17] MEDS: SENNA 8.6 MG TAB (SENOKOT) PO SCH (20:22)
[2023-03-17] MEDS: ramipriL 5 MG CAP PO SCH (20:22)
[2023-03-17 22:00] VITALS: BP 121/62; TEMP 97.5; O2SAT 95
[2023-03-18] MEDS: IPRATROPIUM 0.5MG/ALBUTEROL 2.5MG INH SOL UD 3ML (DUONEB) NEB SCH ×4 (01:20→20:44)
[2023-03-18 01:21] VITALS: O2SAT 98
[2023-03-18] MEDS: HEPARIN SOD (PORCINE) 5000UNITS/ML 1ML VIAL/SYRINGE SQ SCH ×3 (01:26→17:39)
[2023-03-18 06:00] VITALS: BP 142/57; TEMP 97.7; O2SAT 99
[2023-03-18 06:23] LABS: BASO % 0.1 % (0.0-1.0); EOS % 0.4 % (0.0-3.0); HEMATOCRIT 34.4 % (36.0-47.0); HEMOGLOBIN 10.7 g/dl (12.0-15.5); LYMPH # 1.9 10^3/uL (1.5-5.0); MEAN CORPUSCULAR HEMOGLOBIN 30.7 pg (27.0-33.0); MEAN CORPUSCULAR HGB CONC 31.1 g/dl (32.0-36.5); MEAN CORPUSCULAR VOLUME 98.6 fl (80.0-96.0); MONO # 0.9 10^3/uL (0.0-0.8); MONO % 7.7 % (2.0-8.0); NEUTROPHILS # 8.5 10^3/uL (1.5-8.5); NEUTROPHILS % 74.3 % (36.0-66.0); PLATELET COUNT, AUTOMATED 191 10^3/uL (150-450); RED BLOOD COUNT 3.49 10^6/uL (4.00-5.40); WHITE BLOOD COUNT 11.4 10^3/uL (4.0-10.0)
[2023-03-18 06:55] LABS: ALBUMIN 3.4 G/DL (3.2-5.2); ALKALINE PHOSPHATASE 86 U/L (46-116); ALT/SGPT 28 U/L (7.0-40); AST/SGOT 24 U/L (<34); BILIRUBIN,TOTAL 0.4 MG/DL (0.3-1.2); BLOOD UREA NITROGEN 7 MG/DL (9-23); CALCIUM LEVEL 7.1 MG/DL (8.3-10.6); CARBON DIOXIDE LEVEL 33 MMOL/L (20-31); CHLORIDE LEVEL 104 MMOL/L (98-107); CREATININE FOR GFR 0.64 MG/DL (0.55-1.30); GLOMERULAR FILTRATION RATE > 60.0 (>39); GLUCOSE, FASTING 82 MG/DL (74-106); MAGNESIUM LEVEL 1.9 MG/DL (1.8-2.4); POTASSIUM SERUM 4.1 MMOL/L (3.5-5.1); SODIUM LEVEL 145 MMOL/L (136-145); TOTAL PROTEIN 5.8 G/DL (5.7-8.2)
[2023-03-18] MEDS: ADVAIR HFA 115/21MCG INHALER INH SCH ×2 (07:05→20:44)
[2023-03-18] MEDS: methylPREDNISolone 40MG 1ML VIAL IV SCH (09:05)
[2023-03-18] MEDS: CLOPIDOGREL 75 MG TAB PO SCH (09:05)
[2023-03-18] MEDS: DOCUSATE SODIUM 100MG CAPSULE PO SCH ×2 (09:05→20:08)
[2023-03-18] MEDS: PANTOPRAZOLE 40MG TAB (PROTONIX) PO SCH ×2 (09:06→20:08)
[2023-03-18] MEDS: ASPIRIN 81MG ENTERIC TABLET PO SCH (09:06)
[2023-03-18] MEDS: MORPHINE 15 MG SA TAB PO SCH ×2 (09:06→20:04)
[2023-03-18] MEDS: buPROPion **XL** TABLET 150MG (WELLBUTRIN XL) PO SCH (09:07)
[2023-03-18] MEDS: ATORVASTATIN 20 MG TAB PO SCH (09:07)
[2023-03-18] MEDS: CitaloPRAM (CeleXA) 20 MG TAB PO SCH (09:08)
[2023-03-18] MEDS: FUROSEMIDE 40 MG TAB PO SCH ×2 (09:08→20:05)
[2023-03-18] MEDS: AZITHROMYCIN 250MG TABLET PO SCH (09:09)
[2023-03-18] MEDS: busPIRone 5 MG TAB PO SCH ×3 (09:09→20:04)
[2023-03-18] MEDS: ACETAMINOPHEN TAB 650MG DOSE (2X325MG) PO PRN (11:20)
[2023-03-18 14:00] VITALS: BP 140/58; TEMP 97; O2SAT 96
[2023-03-18] MEDS: predniSONE 20 MG TAB PO SCH (20:04)
[2023-03-18] MEDS: traZODone 50 MG TAB PO SCH (20:05)
[2023-03-18] MEDS: MONTELUKAST 10 MG TAB PO SCH (20:08)
[2023-03-18] MEDS: SENNA 8.6 MG TAB (SENOKOT) PO SCH (20:08)
[2023-03-18] MEDS: ramipriL 5 MG CAP PO SCH (20:08)
[2023-03-18 21:02] VITALS: BP 128/89; TEMP 97.5; O2SAT 97
[2023-03-19] MEDS: HEPARIN SOD (PORCINE) 5000UNITS/ML 1ML VIAL/SYRINGE SQ SCH ×3 (01:35→17:00)
[2023-03-19] MEDS: IPRATROPIUM 0.5MG/ALBUTEROL 2.5MG INH SOL UD 3ML (DUONEB) NEB SCH ×4 (01:44→20:41)
[2023-03-19 06:00] VITALS: BP 136/88; TEMP 97.3; O2SAT 97
[2023-03-19 06:24] LABS: HEMATOCRIT 35.2 % (36.0-47.0); MEAN CORPUSCULAR HEMOGLOBIN 30.6 pg (27.0-33.0); MEAN CORPUSCULAR HGB CONC 31.3 g/dl (32.0-36.5); MEAN CORPUSCULAR VOLUME 98.1 fl (80.0-96.0); RED BLOOD COUNT 3.59 10^6/uL (4.00-5.40); WHITE BLOOD COUNT 11.3 10^3/uL (4.0-10.0)
[2023-03-19 06:28] LABS: BLOOD UREA NITROGEN 7 MG/DL (9-23); CALCIUM LEVEL 6.8 MG/DL (8.3-10.6); CARBON DIOXIDE LEVEL 30 MMOL/L (20-31); CHLORIDE LEVEL 104 MMOL/L (98-107); CREATININE FOR GFR 0.57 MG/DL (0.55-1.30); GLOMERULAR FILTRATION RATE > 60.0 (>39); GLUCOSE, FASTING 128 MG/DL (74-106); POTASSIUM SERUM 3.9 MMOL/L (3.5-5.1); SODIUM LEVEL 143 MMOL/L (136-145)
[2023-03-19 07:04] LABS: PLATELET COUNT, AUTOMATED 85 10^3/uL (150-450)
[2023-03-19] MEDS: ADVAIR HFA 115/21MCG INHALER INH SCH ×2 (07:21→20:41)
[2023-03-19] MEDS: CLOPIDOGREL 75 MG TAB PO SCH (09:00)
[2023-03-19] MEDS: ASPIRIN 81MG ENTERIC TABLET PO SCH (09:00)
[2023-03-19] MEDS: buPROPion **XL** TABLET 150MG (WELLBUTRIN XL) PO SCH (09:29)
[2023-03-19] MEDS: ATORVASTATIN 20 MG TAB PO SCH (09:29)
[2023-03-19] MEDS: PANTOPRAZOLE 40MG TAB (PROTONIX) PO SCH ×2 (09:29→22:37)
[2023-03-19] MEDS: predniSONE 20 MG TAB PO SCH ×2 (09:30→22:34)
[2023-03-19] MEDS: busPIRone 5 MG TAB PO SCH ×3 (09:30→22:35)
[2023-03-19] MEDS: FUROSEMIDE 40 MG TAB PO SCH ×2 (09:30→22:35)
[2023-03-19] MEDS: DOCUSATE SODIUM 100MG CAPSULE PO SCH ×2 (09:30→22:35)
[2023-03-19] MEDS: MORPHINE 15 MG SA TAB PO SCH ×2 (09:30→22:36)
[2023-03-19] MEDS: CitaloPRAM (CeleXA) 20 MG TAB PO SCH (09:31)
[2023-03-19 14:00] VITALS: BP 151/83; TEMP 97.7; O2SAT 98
[2023-03-19] MEDS: ACETAMINOPHEN TAB 650MG DOSE (2X325MG) PO PRN (18:05)
[2023-03-19 21:20] VITALS: BP 155/79; TEMP 97.2; O2SAT 98
[2023-03-19] MEDS: traZODone 50 MG TAB PO SCH (22:35)
[2023-03-19] MEDS: SENNA 8.6 MG TAB (SENOKOT) PO SCH (22:37)
[2023-03-19] MEDS: MONTELUKAST 10 MG TAB PO SCH (22:37)
[2023-03-19] MEDS: ramipriL 5 MG CAP PO SCH (22:39)
[2023-03-20] MEDS: HEPARIN SOD (PORCINE) 5000UNITS/ML 1ML VIAL/SYRINGE SQ SCH ×3 (00:05→16:19)
[2023-03-20] MEDS: IPRATROPIUM 0.5MG/ALBUTEROL 2.5MG INH SOL UD 3ML (DUONEB) NEB SCH ×4 (01:20→20:48)
[2023-03-20 05:57] LABS: HEMATOCRIT 37.2 % (36.0-47.0); HEMOGLOBIN 11.5 g/dl (12.0-15.5); MEAN CORPUSCULAR HEMOGLOBIN 30.2 pg (27.0-33.0); MEAN CORPUSCULAR HGB CONC 30.9 g/dl (32.0-36.5); MEAN CORPUSCULAR VOLUME 97.6 fl (80.0-96.0); RED BLOOD COUNT 3.81 10^6/uL (4.00-5.40)
[2023-03-20 06:00] VITALS: BP 148/80; TEMP 97.5; O2SAT 94
[2023-03-20 06:00] LABS: PLATELET COUNT, AUTOMATED 216 10^3/uL (150-450)
[2023-03-20 06:50] LABS: BLOOD UREA NITROGEN 12 MG/DL (9-23); CALCIUM LEVEL 7.2 MG/DL (8.3-10.6); CARBON DIOXIDE LEVEL 34 MMOL/L (20-31); CHLORIDE LEVEL 102 MMOL/L (98-107); CREATININE FOR GFR 0.57 MG/DL (0.55-1.30); GLOMERULAR FILTRATION RATE > 60.0 (>39); GLUCOSE, FASTING 147 MG/DL (74-106); POTASSIUM SERUM 3.4 MMOL/L (3.5-5.1); SODIUM LEVEL 143 MMOL/L (136-145)
[2023-03-20] MEDS: ADVAIR HFA 115/21MCG INHALER INH SCH ×2 (07:52→20:48)
[2023-03-20] MEDS: busPIRone 5 MG TAB PO SCH ×3 (08:38→20:33)
[2023-03-20] MEDS: ASPIRIN 81MG ENTERIC TABLET PO SCH (08:38)
[2023-03-20] MEDS: CLOPIDOGREL 75 MG TAB PO SCH (08:38)
[2023-03-20] MEDS: MORPHINE 15 MG SA TAB PO SCH ×2 (08:39→20:34)
[2023-03-20] MEDS: DOCUSATE SODIUM 100MG CAPSULE PO SCH ×2 (08:39→20:32)
[2023-03-20] MEDS: predniSONE 20 MG TAB PO SCH ×2 (08:40→20:32)
[2023-03-20] MEDS: PANTOPRAZOLE 40MG TAB (PROTONIX) PO SCH ×2 (08:40→20:32)
[2023-03-20] MEDS: buPROPion **XL** TABLET 150MG (WELLBUTRIN XL) PO SCH (08:40)
[2023-03-20] MEDS: FUROSEMIDE 40 MG TAB PO SCH ×2 (08:40→20:35)
[2023-03-20] MEDS: ATORVASTATIN 20 MG TAB PO SCH (08:40)
[2023-03-20] MEDS: CitaloPRAM (CeleXA) 20 MG TAB PO SCH (08:40)
[2023-03-20] MEDS ORDERED: POTASSIUM CHLORIDE 10MEQ SR TABLET PO ONE (09:00)
[2023-03-20] MEDS ORDERED: PRED20TA PO (09:44)
[2023-03-20 14:00] VITALS: BP 145/81; TEMP 97.3; O2SAT 97
[2023-03-20] MEDS: traZODone 50 MG TAB PO SCH (20:33)
[2023-03-20] MEDS: ACETAMINOPHEN TAB 650MG DOSE (2X325MG) PO PRN (20:34)
[2023-03-20] MEDS: SENNA 8.6 MG TAB (SENOKOT) PO SCH (20:35)
[2023-03-20] MEDS: MONTELUKAST 10 MG TAB PO SCH (20:35)
[2023-03-20 20:39] VITALS: BP 144/80
[2023-03-20] MEDS: ramipriL 5 MG CAP PO SCH (20:39)
[2023-03-20 21:52] VITALS: BP 141/97; TEMP 97.7; O2SAT 97
[2023-03-21] MEDS: IPRATROPIUM 0.5MG/ALBUTEROL 2.5MG INH SOL UD 3ML (DUONEB) NEB SCH ×2 (01:01→08:00)
[2023-03-21] MEDS: HEPARIN SOD (PORCINE) 5000UNITS/ML 1ML VIAL/SYRINGE SQ SCH ×2 (01:05→08:53)
[2023-03-21 05:19] VITALS: BP 181/96; TEMP 97.2; O2SAT 99
[2023-03-21 05:45] VITALS: BP 162/80; TEMP 97.2; O2SAT 96
[2023-03-21 06:36] LABS: HEMATOCRIT 40.1 % (36.0-47.0); HEMOGLOBIN 12.4 g/dl (12.0-15.5); MEAN CORPUSCULAR HEMOGLOBIN 30.7 pg (27.0-33.0); MEAN CORPUSCULAR HGB CONC 30.9 g/dl (32.0-36.5); MEAN CORPUSCULAR VOLUME 99.3 fl (80.0-96.0); PLATELET COUNT, AUTOMATED 130 10^3/uL (150-450); RED BLOOD COUNT 4.04 10^6/uL (4.00-5.40)
[2023-03-21 06:59] LABS: BLOOD UREA NITROGEN 13 MG/DL (9-23); CALCIUM LEVEL 7.8 MG/DL (8.3-10.6); CARBON DIOXIDE LEVEL 32 MMOL/L (20-31); CHLORIDE LEVEL 102 MMOL/L (98-107); CREATININE FOR GFR 0.63 MG/DL (0.55-1.30); GLOMERULAR FILTRATION RATE > 60.0 (>39); GLUCOSE, FASTING 146 MG/DL (74-106); POTASSIUM SERUM 3.7 MMOL/L (3.5-5.1); SODIUM LEVEL 142 MMOL/L (136-145)
[2023-03-21 07:15] VITALS: O2SAT 97
[2023-03-21] MEDS: ADVAIR HFA 115/21MCG INHALER INH SCH (08:10)
[2023-03-21] MEDS ORDERED: DOXY-444 PO (08:44)
[2023-03-21] MEDS ORDERED: PRED20TA PO (08:44)
[2023-03-21] MEDS ORDERED: ALBU8.5H INH (08:44)
[2023-03-21] MEDS: ATORVASTATIN 20 MG TAB PO SCH (08:51)
[2023-03-21] MEDS: ASPIRIN 81MG ENTERIC TABLET PO SCH (08:51)
[2023-03-21] MEDS: predniSONE 20 MG TAB PO SCH (08:51)
[2023-03-21] MEDS: PANTOPRAZOLE 40MG TAB (PROTONIX) PO SCH (08:51)
[2023-03-21] MEDS: CLOPIDOGREL 75 MG TAB PO SCH (08:51)
[2023-03-21] MEDS: DOCUSATE SODIUM 100MG CAPSULE PO SCH (08:51)
[2023-03-21] MEDS: busPIRone 5 MG TAB PO SCH (08:52)
[2023-03-21] MEDS: MORPHINE 15 MG SA TAB PO SCH (08:52)
[2023-03-21] MEDS: buPROPion **XL** TABLET 150MG (WELLBUTRIN XL) PO SCH (08:52)
[2023-03-21] MEDS: CitaloPRAM (CeleXA) 20 MG TAB PO SCH (08:52)
[2023-03-21] MEDS: FUROSEMIDE 40 MG TAB PO SCH (08:52)
== END 2023-03-21 13:20 | disposition home health service (06) | DRG 191 ==
LOC: M ED 14:48 → EDBD 14:48 → M ED INP 19:39 → M MS5PR 22:40
PROVIDERS: ADMIT Internal Medicine; ATTEND General Practice
DX: J44.1 Chronic obstructive pulmonary disease with (acute) exacerbation (principal); J96.12 Chronic respiratory failure with hypercapnia; R04.2 Hemoptysis; F11.20 Opioid dependence, uncomplicated; Z68.43 Body mass index [BMI] 50.0-59.9, adult; E66.2 Morbid (severe) obesity with alveolar hypoventilation; F32.A Depression, unspecified; I10 Essential (primary) hypertension; I27.81 Cor pulmonale (chronic); M19.012 Primary osteoarthritis, left shoulder; Z95.1 Presence of aortocoronary bypass graft; K86.89 Other specified diseases of pancreas; M16.11 Unilateral primary osteoarthritis, right hip; I25.10 Atherosclerotic heart disease of native coronary artery without angina pectoris; M19.011 Primary osteoarthritis, right shoulder; J45.909 Unspecified asthma, uncomplicated; Z95.5 Presence of coronary angioplasty implant and graft; E78.5 Hyperlipidemia, unspecified; I27.21 Secondary pulmonary arterial hypertension; K80.20 Calculus of gallbladder without cholecystitis without obstruction; D64.9 Anemia, unspecified; E83.51 Hypocalcemia; G47.33 Obstructive sleep apnea (adult) (pediatric); K21.9 Gastro-esophageal reflux disease without esophagitis; R91.1 Solitary pulmonary nodule; Z88.0 Allergy status to penicillin; Z79.899 Other long term (current) drug therapy; Z79.82 Long term (current) use of aspirin; G89.29 Other chronic pain

== ENCOUNTER 2023-04-04 06:50 | Inpatient (IN) | payer MEDICARE, MEDICAID ==
[~2023-04-04] VITALS: Ht 134.6 cm; Wt 96.0 kg
[~2023-04-04 06:50] MED LIST changes: +ACE65ERTAB PO; +BUSP5TA PO; +DOXY-444 PO; +PRED20TA PO
[2023-04-04] MEDS ORDERED: NITROGLYCERIN 2% OINT 1 GM *U/D* PKT TOP ONE (06:55)
[2023-04-04] MEDS ORDERED: IPRATROPIUM 0.5MG/ALBUTEROL 2.5MG INH SOL UD 3ML (DUONEB) NEB PRN (06:55)
[2023-04-04] MEDS ORDERED: FUROSEMIDE 40MG/4ML VIAL IV ONE (06:55)
[2023-04-04 07:16] LABS: ABG BASE EXCESS 7.1 (-2.0-2.0); ABG HCO3 32.2 MMOL/L (22.0-26.0); ABG O2 SATURATION 95.4 % (95.0-99.0); ABG PARTIAL PRESSURE CO2 47.4 mmHg (35.0-45.0); ABG PARTIAL PRESSURE O2 78.4 mmHg (75.0-100.0); ABG STANDARD HCO3 30.9 MMOL/L. (22.0-26.0); ABG TOTAL CO2 33.7 MMOL/L (23.0-31.0)
[2023-04-04 07:30] LABS: BASO % 0.2 % (0.0-1.0); EOS # 0.3 10^3/uL (0.0-0.5); EOS % 1.5 % (0.0-3.0); HEMATOCRIT 40.9 % (36.0-47.0); LYMPH # 1.1 10^3/uL (1.5-5.0); MEAN CORPUSCULAR HEMOGLOBIN 31.2 pg (27.0-33.0); MEAN CORPUSCULAR HGB CONC 31.8 g/dl (32.0-36.5); MEAN CORPUSCULAR VOLUME 98.1 fl (80.0-96.0); MONO # 0.5 10^3/uL (0.0-0.8); MONO % 2.6 % (2.0-8.0); NEUTROPHILS # 16.9 10^3/uL (1.5-8.5); NEUTROPHILS % 88.8 % (36.0-66.0); PLATELET COUNT, AUTOMATED 201 10^3/uL (150-450); RED BLOOD COUNT 4.17 10^6/uL (4.00-5.40)
[2023-04-04] MEDS ORDERED: NITROGLYCERIN 0.4MG SUBL TABLET SL PRN (07:30)
[2023-04-04] MEDS ORDERED: cefTRIAXone SOD 2 GM in D5W MINI-BAG PLUS 50 ML IV ONE (07:30)
[2023-04-04] MEDS ORDERED: ACETAMINOPHEN 500 MG TAB PO ONE (07:35)
[2023-04-04 07:53] LABS: ALBUMIN 3.4 G/DL (3.2-5.2); ALKALINE PHOSPHATASE 103 U/L (46-116); ALT/SGPT 43 U/L (7.0-40); AST/SGOT 41 U/L (<34); BILIRUBIN,DIRECT 0.2 MG/DL (<0.4); BILIRUBIN,TOTAL 0.7 MG/DL (0.3-1.2); BLOOD UREA NITROGEN 19 MG/DL (9-23); CALCIUM LEVEL 8.1 MG/DL (8.3-10.6); CARBON DIOXIDE LEVEL 38 MMOL/L (20-31); CHLORIDE LEVEL 97 MMOL/L (98-107); CREATININE FOR GFR 0.74 MG/DL (0.55-1.30); GLOMERULAR FILTRATION RATE > 60.0 (>39); GLUCOSE, FASTING 135 MG/DL (74-106); POTASSIUM SERUM 4.7 MMOL/L (3.5-5.1); SODIUM LEVEL 141 MMOL/L (136-145); TOTAL PROTEIN 6.2 G/DL (5.7-8.2)
[2023-04-04] MEDS ORDERED: METOPROLOL 5 MG/5 ML VIAL IV STA (08:48)
[2023-04-04] MEDS ORDERED: methylPREDNISolone 125MG 2ML VIAL IV ONE (08:50)
[2023-04-04 10:20] LABS: THYROID STIMULATING HORMONE 1.343 uIU/ML (0.55-4.78)
[2023-04-04] MEDS ORDERED: MED REC IN PROGRESS XX SCH (10:55)
[2023-04-04] MEDS ORDERED: ALBUTEROL SULFATE 2.5MG/0.5ML INH NEB SOLN NEB PRN (11:55)
[2023-04-04] MEDS ORDERED: DEXT30LI PO (12:00)
[2023-04-04] MEDS ORDERED: HOME MED LIST COMPLETE! XX SCH (12:15)
[2023-04-04] MEDS: DOXYCYCLINE HYCLATE 100MG TABLET PO SCH ×2 (13:17→21:33)
[2023-04-04 13:19] LABS: PROCALCITONIN 4.86 ng/ml
[2023-04-04 13:21] LABS: MB/CK RELATIVE INDEX 1.16 (< OR =4)
[2023-04-04] MEDS: IPRATROPIUM 0.5MG/ALBUTEROL 2.5MG INH SOL UD 3ML (DUONEB) NEB SCH ×2 (14:18→19:30)
[2023-04-04 14:20] VITALS: O2SAT 96
[2023-04-04 15:38] LABS: CK-MB VALUE MASS 1.7 NG/ML (<3.6)
[2023-04-04 15:39] LABS: MB/CK RELATIVE INDEX 1.18 (< OR =4)
[2023-04-04] MEDS: ASPIRIN 81MG ENTERIC TABLET PO SCH (16:00)
[2023-04-04] MEDS: FUROSEMIDE 40 MG TAB PO SCH (16:00)
[2023-04-04] MEDS: MULTIVITAMINS/MINERALS THERAP 1 TAB PO SCH (16:01)
[2023-04-04] MEDS: CLOPIDOGREL 75 MG TAB PO SCH (16:01)
[2023-04-04] MEDS: buPROPion **XL** TABLET 150MG (WELLBUTRIN XL) PO SCH (16:01)
[2023-04-04] MEDS: CitaloPRAM (CeleXA) 20 MG TAB PO SCH (16:01)
[2023-04-04] MEDS: busPIRone 5 MG TAB PO SCH ×2 (16:09→21:33)
[2023-04-04] MEDS: ATORVASTATIN 20 MG TAB PO SCH (16:09)
[2023-04-04] MEDS: TIOTROPIUM INHALER/CAPSULE (SPIRIVA) INH SCH (16:21)
[2023-04-04] MEDS: ACETAMINOPHEN TAB 650MG DOSE (2X325MG) PO PRN (17:30)
[2023-04-04] MEDS ORDERED: RIVAROXABAN 10MG TAB (XARELTO) PO SCH (18:00)
[2023-04-04] MEDS: ADVAIR HFA 115/21MCG INHALER INH SCH (19:30)
[2023-04-04] MEDS: methylPREDNISolone 40MG 1ML VIAL IV SCH (20:11)
[2023-04-04 20:44] LABS: CK-MB VALUE MASS 3.5 NG/ML (<3.6)
[2023-04-04 20:46] LABS: MB/CK RELATIVE INDEX 1.24 (< OR =4)
[2023-04-04] MEDS: PANTOPRAZOLE 40MG TAB (PROTONIX) PO SCH (21:32)
[2023-04-04] MEDS: traZODone 50 MG TAB PO SCH (21:33)
[2023-04-04] MEDS: ramipriL 5 MG CAP PO SCH (21:36)
[2023-04-04] MEDS: SENNA 8.6 MG TAB (SENOKOT) PO SCH (23:00)
[2023-04-04] MEDS: MORPHINE 15 MG SA TAB PO SCH (23:21)
[2023-04-05] VITALS (13 sets, daily range): BP systolic 121–171; BP diastolic 60–70; TEMP 96.8–97.8; O2SAT 92–97
[2023-04-05] MEDS: methylPREDNISolone 40MG 1ML VIAL IV SCH ×3 (01:08→16:52)
[2023-04-05] MEDS: IPRATROPIUM 0.5MG/ALBUTEROL 2.5MG INH SOL UD 3ML (DUONEB) NEB SCH ×4 (01:40→19:26)
[2023-04-05 05:41] LABS: HEMATOCRIT 33.7 % (36.0-47.0); MEAN CORPUSCULAR HGB CONC 32.3 g/dl (32.0-36.5); MEAN CORPUSCULAR VOLUME 95.7 fl (80.0-96.0); PLATELET COUNT, AUTOMATED 143 10^3/uL (150-450); RED BLOOD COUNT 3.52 10^6/uL (4.00-5.40); WHITE BLOOD COUNT 20.3 10^3/uL (4.0-10.0)
[2023-04-05 05:47] LABS: HEMOGLOBIN 10.9 g/dl (12.0-15.5)
[2023-04-05 06:05] LABS: BLOOD UREA NITROGEN 18 MG/DL (9-23); CALCIUM LEVEL 8.1 MG/DL (8.3-10.6); CARBON DIOXIDE LEVEL 30 MMOL/L (20-31); CHLORIDE LEVEL 101 MMOL/L (98-107); CREATININE FOR GFR 0.61 MG/DL (0.55-1.30); GLOMERULAR FILTRATION RATE > 60.0 (>39); GLUCOSE, FASTING 185 MG/DL (74-106); POTASSIUM SERUM 3.4 MMOL/L (3.5-5.1); SODIUM LEVEL 141 MMOL/L (136-145)
[2023-04-05] MEDS ORDERED: POTASSIUM CHLORIDE 10MEQ SR TABLET PO ONE (07:10)
[2023-04-05] MEDS: TIOTROPIUM INHALER/CAPSULE (SPIRIVA) INH SCH (07:28)
[2023-04-05] MEDS: ADVAIR HFA 115/21MCG INHALER INH SCH ×2 (07:28→19:26)
[2023-04-05] MEDS: buPROPion **XL** TABLET 150MG (WELLBUTRIN XL) PO SCH (08:38)
[2023-04-05] MEDS: busPIRone 5 MG TAB PO SCH ×3 (08:38→20:37)
[2023-04-05] MEDS: FUROSEMIDE 40 MG TAB PO SCH ×2 (08:38→15:35)
[2023-04-05] MEDS: CitaloPRAM (CeleXA) 20 MG TAB PO SCH (08:38)
[2023-04-05] MEDS: DOXYCYCLINE HYCLATE 100MG TABLET PO SCH ×2 (08:38→20:37)
[2023-04-05] MEDS: ATORVASTATIN 20 MG TAB PO SCH (08:38)
[2023-04-05] MEDS: MULTIVITAMINS/MINERALS THERAP 1 TAB PO SCH (08:38)
[2023-04-05] MEDS: CLOPIDOGREL 75 MG TAB PO SCH (08:38)
[2023-04-05] MEDS: ASPIRIN 81MG ENTERIC TABLET PO SCH (08:39)
[2023-04-05] MEDS: MORPHINE 15 MG SA TAB PO SCH ×2 (08:40→20:40)
[2023-04-05] MEDS: PANTOPRAZOLE 40MG TAB (PROTONIX) PO SCH ×2 (08:43→20:37)
[2023-04-05] MEDS: METOPROLOL 5 MG/5 ML VIAL IV SCH ×3 (08:50→09:41)
[2023-04-05] MEDS ORDERED: cefTRIAXone SOD 1 GM in D5W MINI-BAG PLUS 50 ML IV SCH (09:00)
[2023-04-05 12:02] LABS: MAGNESIUM LEVEL 1.6 MG/DL (1.8-2.4)
[2023-04-05] MEDS: METOPROLOL TART 25 MG TABLET PO SCH ×2 (13:01→18:03)
[2023-04-05 13:18] LABS: HEMATOCRIT 35.3 % (36.0-47.0); HEMOGLOBIN 11.2 g/dl (12.0-15.5)
[2023-04-05] MEDS: MAG SULF 1GM/100ML (MAG RUN) 1 GM in IV 1 EA IV SCH ×2 (15:35→16:52)
[2023-04-05] MEDS: ramipriL 5 MG CAP PO SCH (20:37)
[2023-04-05] MEDS: SENNA 8.6 MG TAB (SENOKOT) PO SCH (20:37)
[2023-04-05] MEDS: traZODone 50 MG TAB PO SCH (20:37)
[2023-04-06] VITALS (18 sets, daily range): BP systolic 140–158; BP diastolic 65–76; TEMP 96.3–97.9; O2SAT 89–99
[2023-04-06] MEDS: METOPROLOL TART 25 MG TABLET PO SCH ×2 (00:39→05:06)
[2023-04-06] MEDS: methylPREDNISolone 40MG 1ML VIAL IV SCH ×3 (00:39→17:30)
[2023-04-06] MEDS: IPRATROPIUM 0.5MG/ALBUTEROL 2.5MG INH SOL UD 3ML (DUONEB) NEB SCH ×4 (02:24→21:07)
[2023-04-06 05:02] LABS: HEMATOCRIT 31.6 % (36.0-47.0); HEMOGLOBIN 9.9 g/dl (12.0-15.5); MEAN CORPUSCULAR HEMOGLOBIN 30.9 pg (27.0-33.0); MEAN CORPUSCULAR HGB CONC 31.3 g/dl (32.0-36.5); MEAN CORPUSCULAR VOLUME 98.8 fl (80.0-96.0); PLATELET COUNT, AUTOMATED 163 10^3/uL (150-450); WHITE BLOOD COUNT 20.3 10^3/uL (4.0-10.0)
[2023-04-06 05:41] LABS: BLOOD UREA NITROGEN 23 MG/DL (9-23); CALCIUM LEVEL 8.3 MG/DL (8.3-10.6); CARBON DIOXIDE LEVEL 30 MMOL/L (20-31); CHLORIDE LEVEL 102 MMOL/L (98-107); CREATININE FOR GFR 0.67 MG/DL (0.55-1.30); GLOMERULAR FILTRATION RATE > 60.0 (>39); GLUCOSE, FASTING 193 MG/DL (74-106); MAGNESIUM LEVEL 2.3 MG/DL (1.8-2.4); POTASSIUM SERUM 4.2 MMOL/L (3.5-5.1); SODIUM LEVEL 141 MMOL/L (136-145)
[2023-04-06] MEDS: TIOTROPIUM INHALER/CAPSULE (SPIRIVA) INH SCH (08:26)
[2023-04-06] MEDS: ADVAIR HFA 115/21MCG INHALER INH SCH ×2 (08:26→21:06)
[2023-04-06] MEDS ORDERED: METOPROLOL TART 25 MG TABLET PO ONE (09:45)
[2023-04-06] MEDS: buPROPion **XL** TABLET 150MG (WELLBUTRIN XL) PO SCH (10:09)
[2023-04-06] MEDS: ASPIRIN 81MG ENTERIC TABLET PO SCH (10:09)
[2023-04-06] MEDS: MULTIVITAMINS/MINERALS THERAP 1 TAB PO SCH (10:10)
[2023-04-06] MEDS: CLOPIDOGREL 75 MG TAB PO SCH (10:10)
[2023-04-06] MEDS: PANTOPRAZOLE 40MG TAB (PROTONIX) PO SCH ×2 (10:11→21:07)
[2023-04-06] MEDS: ATORVASTATIN 20 MG TAB PO SCH (10:11)
[2023-04-06] MEDS: busPIRone 5 MG TAB PO SCH ×3 (10:12→21:07)
[2023-04-06] MEDS: CitaloPRAM (CeleXA) 20 MG TAB PO SCH (10:12)
[2023-04-06] MEDS: MORPHINE 15 MG SA TAB PO SCH ×2 (10:34→21:08)
[2023-04-06] MEDS: FUROSEMIDE 40 MG TAB PO SCH ×2 (10:35→14:07)
[2023-04-06] MEDS: LevoFLOXacin 750 MG TABLET PO SCH (10:48)
[2023-04-06] MEDS ORDERED: ELIQ5TAB PO ×2 (11:02→11:38)
[2023-04-06] MEDS ORDERED: LEVO1TAB40 PO ×2 (11:02→11:38)
[2023-04-06] MEDS ORDERED: LOPR1TAB6 PO ×2 (11:02→11:39)
[2023-04-06] MEDS ORDERED: PRED10TA2 PO ×2 (11:02→11:38)
[2023-04-06] MEDS ORDERED: ASPI81TA26 PO (11:32)
[2023-04-06 12:40] LABS: HEMATOCRIT 33.2 % (36.0-47.0); HEMOGLOBIN 10.5 g/dl (12.0-15.5)
[2023-04-06] MEDS: ACETAMINOPHEN TAB 650MG DOSE (2X325MG) PO PRN (14:56)
[2023-04-06] MEDS: APIXABAN 5 MG TAB (ELIQUIS) PO SCH (21:06)
[2023-04-06] MEDS: traZODone 50 MG TAB PO SCH (21:07)
[2023-04-06] MEDS: SENNA 8.6 MG TAB (SENOKOT) PO SCH (21:07)
[2023-04-06] MEDS: METOPROLOL TART 50 MG TAB PO SCH (21:07)
[2023-04-06] MEDS: ramipriL 5 MG CAP PO SCH (21:07)
[2023-04-07] VITALS (7 sets, daily range): BP systolic 138; BP diastolic 70; TEMP 96.9; O2SAT 91–99
[2023-04-07] MEDS: methylPREDNISolone 40MG 1ML VIAL IV SCH ×2 (01:58→08:46)
[2023-04-07] MEDS: IPRATROPIUM 0.5MG/ALBUTEROL 2.5MG INH SOL UD 3ML (DUONEB) NEB SCH ×2 (02:25→07:49)
[2023-04-07 05:45] LABS: BASO % 0.1 % (0.0-1.0); HEMATOCRIT 34.3 % (36.0-47.0); HEMOGLOBIN 10.4 g/dl (12.0-15.5); LYMPH # 0.5 10^3/uL (1.5-5.0); LYMPH % 3.5 % (24.0-44.0); MEAN CORPUSCULAR HGB CONC 30.3 g/dl (32.0-36.5); MEAN CORPUSCULAR VOLUME 102.1 fl (80.0-96.0); MONO # 0.5 10^3/uL (0.0-0.8); MONO % 3.4 % (2.0-8.0); NEUTROPHILS # 13.1 10^3/uL (1.5-8.5); NEUTROPHILS % 91.9 % (36.0-66.0); PLATELET COUNT, AUTOMATED 152 10^3/uL (150-450); RED BLOOD COUNT 3.36 10^6/uL (4.00-5.40); WHITE BLOOD COUNT 14.3 10^3/uL (4.0-10.0)
[2023-04-07 06:18] LABS: BLOOD UREA NITROGEN 29 MG/DL (9-23); CARBON DIOXIDE LEVEL 34 MMOL/L (20-31); CHLORIDE LEVEL 103 MMOL/L (98-107); CREATININE FOR GFR 0.69 MG/DL (0.55-1.30); GLOMERULAR FILTRATION RATE > 60.0 (>39); GLUCOSE, FASTING 162 MG/DL (74-106); MAGNESIUM LEVEL 2.2 MG/DL (1.8-2.4); POTASSIUM SERUM 4.7 MMOL/L (3.5-5.1); SODIUM LEVEL 141 MMOL/L (136-145)
[2023-04-07] MEDS: LevoFLOXacin 750 MG TABLET PO SCH (06:34)
[2023-04-07] MEDS: ADVAIR HFA 115/21MCG INHALER INH SCH (07:49)
[2023-04-07] MEDS: TIOTROPIUM INHALER/CAPSULE (SPIRIVA) INH SCH (07:49)
[2023-04-07] MEDS: ATORVASTATIN 20 MG TAB PO SCH (08:46)
[2023-04-07] MEDS: PANTOPRAZOLE 40MG TAB (PROTONIX) PO SCH (08:47)
[2023-04-07] MEDS: APIXABAN 5 MG TAB (ELIQUIS) PO SCH (08:47)
[2023-04-07] MEDS: buPROPion **XL** TABLET 150MG (WELLBUTRIN XL) PO SCH (08:47)
[2023-04-07] MEDS: ASPIRIN 81MG ENTERIC TABLET PO SCH (08:47)
[2023-04-07] MEDS: MORPHINE 15 MG SA TAB PO SCH (08:47)
[2023-04-07] MEDS: busPIRone 5 MG TAB PO SCH (08:47)
[2023-04-07] MEDS: METOPROLOL TART 50 MG TAB PO SCH (08:48)
[2023-04-07] MEDS: CitaloPRAM (CeleXA) 20 MG TAB PO SCH (08:48)
[2023-04-07] MEDS: FUROSEMIDE 40 MG TAB PO SCH (08:48)
[2023-04-07] MEDS: MULTIVITAMINS/MINERALS THERAP 1 TAB PO SCH (08:48)
[2023-04-11 16:10] LABS: BODY FLUID CULTURE Not indicated. (.); LEGIONELLA ANTIGEN URINE Negative (Negative); ORGANISM ID Not indicated. (.); SPECIMEN SOURCE Urine (.); URINE STREP PNEUMONIAE ANTIGEN Negative (Negative)
== END 2023-04-07 12:35 | DRG 871 ==
LOC: M ED 06:50 → EDBD 06:50 → M ED INP 11:57 → M PCU 04-05 02:50
PROVIDERS: ADMIT Internal Medicine; ATTEND Internal Medicine
DX: A41.9 Sepsis, unspecified organism (principal); J18.9 Pneumonia, unspecified organism; J44.1 Chronic obstructive pulmonary disease with (acute) exacerbation; J44.0 Chronic obstructive pulmonary disease with (acute) lower respiratory infection; R04.2 Hemoptysis; Z68.42 Body mass index [BMI] 45.0-49.9, adult; I25.10 Atherosclerotic heart disease of native coronary artery without angina pectoris; G47.33 Obstructive sleep apnea (adult) (pediatric); G47.00 Insomnia, unspecified; I10 Essential (primary) hypertension; K21.9 Gastro-esophageal reflux disease without esophagitis; M19.90 Unspecified osteoarthritis, unspecified site; M85.88 Other specified disorders of bone density and structure, other site; E66.9 Obesity, unspecified; I48.91 Unspecified atrial fibrillation; F32.A Depression, unspecified; F41.9 Anxiety disorder, unspecified; Z98.41 Cataract extraction status, right eye; Z98.42 Cataract extraction status, left eye; Z90.79 Acquired absence of other genital organ(s); Z87.891 Personal history of nicotine dependence; Z95.5 Presence of coronary angioplasty implant and graft; Z79.82 Long term (current) use of aspirin; Z79.899 Other long term (current) drug therapy; Z88.1 Allergy status to other antibiotic agents; Z20.822 Contact with and (suspected) exposure to COVID-19

== ENCOUNTER → 2023-04-19 | Outpatient (REF) | payer MEDICARE, MEDICAID ==
[~2023-04-19] MED LIST changes: +DEXT30LI PO; +ELIQ5TAB PO; +LEVO1TAB40 PO; +LOPR1TAB6 PO
[2023-04-20 11:38] LABS: PERCENT SATURATION 14.6 % (13.2-45.0)
== END ==
LOC: M LAB REF 11:16
PROVIDERS: ATTEND Internal Medicine
DX: D64.9 Anemia, unspecified (principal)

== ENCOUNTER → 2023-06-28 | Outpatient (REF) | payer MEDICARE, MEDICAID ==
[2023-06-28 16:52] LABS: APPEARANCE, URINE CLEAR (CLEAR); BACTERIA, URINE AUTO NEGATIVE (NEGATIVE); BILIRUBIN, URINE AUTO NEGATIVE (NEGATIVE); BLOOD, URINE BLOOD NEGATIVE (NEGATIVE); COLOR, URINE YELLOW (YELLOW); GLUCOSE, URINE (UA) AUTO NEGATIVE (NEGATIVE); KETONE, URINE AUTO NEGATIVE (NEGATIVE); LEUKOCYTE ESTERASE, URINE AUTO NEGATIVE (NEGATIVE); NITRITE, URINE AUTO NEGATIVE (NEGATIVE); PROTEIN, URINE AUTO NEGATIVE (NEGATIVE); RBC, URINE AUTO 0 /HPF (0-3); SPECIFIC GRAVITY URINE AUTO 1.009 (1.002-1.035); SQUAMOUS EPITHELIAL CELL UR AU 0 /HPF (0-6); UROBILINOGEN, URINE AUTO 0.2 mg/dL (0.0-2.0); WBC, URINE AUTO 0 /HPF (0-3)
[2023-06-28 17:07] LABS: BASO % 0.1 % (0.0-1.0); EOS # 0.3 10^3/uL (0.0-0.5); EOS % 2.8 % (0.0-3.0); HEMATOCRIT 38.2 % (36.0-47.0); HEMOGLOBIN 11.8 g/dl (12.0-15.5); LYMPH # 1.6 10^3/uL (1.5-5.0); LYMPH % 17.6 % (24.0-44.0); MEAN CORPUSCULAR HGB CONC 30.9 g/dl (32.0-36.5); MEAN CORPUSCULAR VOLUME 93.9 fl (80.0-96.0); MONO # 0.7 10^3/uL (0.0-0.8); MONO % 7.4 % (2.0-8.0); NEUTROPHILS # 6.4 10^3/uL (1.5-8.5); NEUTROPHILS % 71.8 % (36.0-66.0); PLATELET COUNT, AUTOMATED 237 10^3/uL (150-450); RED BLOOD COUNT 4.07 10^6/uL (4.00-5.40); WHITE BLOOD COUNT 8.9 10^3/uL (4.0-10.0)
[2023-06-28 17:11] LABS: CREATININE,RANDOM URINE 27.9 MG/DL
[2023-06-28 17:12] LABS: C REACTIVE PROTEIN QUANTITATIV 1.4 MG/DL (<1.0)
[2023-06-28 17:13] LABS: MAGNESIUM LEVEL 1.8 MG/DL (1.8-2.4); PHOSPHORUS LEVEL 4.2 MG/DL (2.4-5.1); TOTAL PROTEIN,RANDOM URINE < 6.0 MG/DL (0.0-14.0)
[2023-06-28 17:14] LABS: COMPLEMENT C3 148.1 MG/DL (90.0-170.0); TOTAL 25(OH) VITAMIN D 50.4 NG/ML (20.0-100.0)
[2023-06-28 17:15] LABS: COMPLEMENT C4 24.8 MG/DL (12-36)
[2023-06-28 17:31] LABS: ERYTHROCYTE SEDIMENTATION RATE 41 mm/hr (0-30)
[2023-06-29 13:17] LABS: PTT LUPUS TYPE ANTICOAG SCREEN 1.77 (0-1.20)
[2023-06-29 13:25] LABS: DRVV CONFIRM 69.8 SECONDS; LUPUS CONFIRM RATIO 1.8
[2023-06-29 13:31] LABS: NORMALIZED RATIO 0.98 (0.00-1.20)
== END ==
LOC: M SFHCRHEU 15:09
PROVIDERS: ATTEND Internal Medicine
DX: R76.8 Other specified abnormal immunological findings in serum (principal); M25.50 Pain in unspecified joint; M79.10 Myalgia, unspecified site

== ENCOUNTER → 2024-01-01 | Outpatient (CLI) | payer MEDICARE, MEDICAID ==
[~2024-01-01] MED LIST changes: +BUPR-597 PO; -BUPR300T92 PO; +DOXY-440 PO; -DOXY-444 PO; +OPTI0.5D2 OU; -OPTI0.5D5 OU; +RAMI10CA64 PO; -RAMI1CAP24 PO; -RAMI1CAP26 PO; +RAMI5CAP60 PO
== END ==
LOC: M PLAIMG 10:28
PROVIDERS: ATTEND Nurse Practitioner Family
DX: M25.531 Pain in right wrist (principal); M25.532 Pain in left wrist

== ENCOUNTER 2024-01-27 19:24 | Emergency (ER) | payer MEDICARE, MEDICAID ==
[~2024-01-27] VITALS: Ht 147.3 cm; Wt 98.6 kg
[2024-01-27] MEDS: oxyCODONE 5MG TAB PO ONE (22:11)
[2024-01-28 00:02] VITALS: BP 186/75; TEMP 97.8; O2SAT 92
== END 2024-01-28 00:17 | disposition home or self-care (01) ==
LOC: EDBD 19:24 → M ED 19:24
DX: S90.01XA Contusion of right ankle, initial encounter (principal); W23.0XXA Caught, crushed, jammed, or pinched between moving objects, initial encounter; R60.1 Generalized edema; I10 Essential (primary) hypertension; J44.9 Chronic obstructive pulmonary disease, unspecified; G47.33 Obstructive sleep apnea (adult) (pediatric); K21.9 Gastro-esophageal reflux disease without esophagitis; Z88.8 Allergy status to other drugs, medicaments and biological substances; Y92.129 Unspecified place in nursing home as the place of occurrence of the external cause; Y93.89 Activity, other specified; Y99.9 Unspecified external cause status; Z79.52 Long term (current) use of systemic steroids; Z79.01 Long term (current) use of anticoagulants; Z79.82 Long term (current) use of aspirin; Z79.811 Long term (current) use of aromatase inhibitors; Z79.899 Other long term (current) drug therapy

== ENCOUNTER → 2024-02-07 | Outpatient (CLI) | payer MEDICARE, MEDICAID | LOC: M SLEEP 20:00 | PROVIDERS: ATTEND Internal Medicine Pulmonary Disease | DX: G47.33 Obstructive sleep apnea (adult) (pediatric) (principal); R40.0 Somnolence ==

== ENCOUNTER 2024-02-26 12:12 | Emergency (ER) | payer MEDICARE, MEDICAID ==
[~2024-02-26] VITALS: Ht 149.9 cm; Wt 104.0 kg
[2024-02-26 13:47] LABS: BASO % 0.3 % (0.0-1.0); EOS # 0.3 10^3/uL (0.0-0.5); HEMATOCRIT 36.4 % (36.0-47.0); HEMOGLOBIN 11.3 g/dl (12.0-15.5); LYMPH # 1.2 10^3/uL (1.5-5.0); LYMPH % 12.1 % (24.0-44.0); MEAN CORPUSCULAR HEMOGLOBIN 29.5 pg (27.0-33.0); MONO # 0.7 10^3/uL (0.0-0.8); MONO % 6.9 % (2.0-8.0); NEUTROPHILS # 7.8 10^3/uL (1.5-8.5); NEUTROPHILS % 77.3 % (36.0-66.0); PLATELET COUNT, AUTOMATED 200 10^3/uL (150-450); RED BLOOD COUNT 3.83 10^6/uL (4.00-5.40); WHITE BLOOD COUNT 10.1 10^3/uL (4.0-10.0)
[2024-02-26 13:47] LABS: VENOUS BASE EXCESS 5.8 (-2.0-2.0); VENOUS HCO3 32.5 MMOL/L (23.0-27.0); VENOUS PARTIAL PRESSURE CO2 57.4 mmHg (38.0-50.0); VENOUS PARTIAL PRESSURE O2 35.2 mmHg (30.0-50.0); VENOUS PH 7.371 UNITS (7.330-7.430); VENOUS STANDARD HCO3 29.1 MMOL/L; VENOUS TOTAL CO2 34.3 MMOL/L (24.0-28.0)
[2024-02-26 14:03] LABS: INR 1.32; PARTIAL THROMBOPLASTIN TIME 35.3 SECONDS (24.8-34.2)
[2024-02-26 14:23] LABS: ETHYL ALCOHOL (ETHANOL) < 0.003 % (0.000-0.010); LIPASE 24 U/L (12-53)
[2024-02-26 14:24] LABS: AMYLASE 22 U/L (30-118); CPK CREATINE PHOSPHOKINASE 80 U/L (34-145)
[2024-02-26 14:25] LABS: ALBUMIN 3.6 G/DL (3.2-5.2); ALKALINE PHOSPHATASE 104 U/L (46-116); ALT/SGPT 24 U/L (7.0-40); AST/SGOT 17 U/L (<34); BILIRUBIN,DIRECT 0.2 MG/DL (<0.4); BILIRUBIN,TOTAL 0.5 MG/DL (0.3-1.2); BLOOD UREA NITROGEN 21 MG/DL (9-23); CARBON DIOXIDE LEVEL 36 MMOL/L (20-31); CHLORIDE LEVEL 100 MMOL/L (98-107); CK-MB VALUE MASS 3.9 NG/ML (<3.6); CREATININE FOR GFR 0.74 MG/DL (0.55-1.30); GLOMERULAR FILTRATION RATE > 60.0 (>39); GLUCOSE, FASTING 96 MG/DL (74-106); MB/CK RELATIVE INDEX 4.87 (< OR =4); POTASSIUM SERUM 4.3 MMOL/L (3.5-5.1); SODIUM LEVEL 139 MMOL/L (136-145); TOTAL PROTEIN 6.5 G/DL (5.7-8.2)
[2024-02-26] MEDS: CYCLOBENZAPRINE 5MG TABLET PO ONE (14:27)
[2024-02-26 14:46] VITALS: BP 147/62
[2024-02-26] MEDS: ACETAMINOPHEN TAB 650MG DOSE (2X325MG) PO ONE (14:46)
[2024-02-26 15:59] VITALS: O2SAT 93
[2024-02-26 16:10] VITALS: BP 152/70; TEMP 98; O2SAT 94
== END 2024-02-26 18:16 | disposition home or self-care (01) ==
LOC: EDBD 12:12 → M ED 12:12
DX: S09.93XA Unspecified injury of face, initial encounter (principal); W19.XXXA Unspecified fall, initial encounter; J44.9 Chronic obstructive pulmonary disease, unspecified; I10 Essential (primary) hypertension; E78.5 Hyperlipidemia, unspecified; I25.810 Atherosclerosis of coronary artery bypass graft(s) without angina pectoris; K58.9 Irritable bowel syndrome, unspecified; G47.33 Obstructive sleep apnea (adult) (pediatric); M50.30 Other cervical disc degeneration, unspecified cervical region; M25.78 Osteophyte, vertebrae; Z88.1 Allergy status to other antibiotic agents; Z79.01 Long term (current) use of anticoagulants; Z96.651 Presence of right artificial knee joint; Z79.52 Long term (current) use of systemic steroids; Z79.82 Long term (current) use of aspirin; Z79.02 Long term (current) use of antithrombotics/antiplatelets; Z79.811 Long term (current) use of aromatase inhibitors; Z79.899 Other long term (current) drug therapy; Y92.128 Other place in nursing home as the place of occurrence of the external cause; Y93.89 Activity, other specified; Y99.9 Unspecified external cause status

== ENCOUNTER → 2024-04-11 | Outpatient (CLI) | payer MEDICARE, MEDICAID | LOC: M WHC 13:14 | PROVIDERS: ATTEND Surgery Vascular Surgery | DX: I65.23 Occlusion and stenosis of bilateral carotid arteries (principal) ==

== ENCOUNTER → 2024-05-07 | Outpatient (CLI) | payer MEDICARE, MEDICAID | LOC: M SLEEP 20:00 | PROVIDERS: ATTEND Internal Medicine Pulmonary Disease | DX: G47.33 Obstructive sleep apnea (adult) (pediatric) (principal) ==

== ENCOUNTER 2024-08-30 14:46 | Observation (INO) | payer MEDICARE, MEDICAID ==
[~2024-08-30] VITALS: Ht 165.1 cm; Wt 98.9 kg
[2024-08-30] MEDS: ONDANSETRON 4MG ORAL DISINTEGRATING TAB PO ONE (17:21)
[2024-08-30] MEDS: MECLIZINE 25 MG TABLET PO ONE (17:53)
[2024-08-30 18:22] LABS: BASO % 0.2 % (0.0-1.0); EOS # 0.4 10^3/uL (0.0-0.5); EOS % 3.8 % (0.0-3.0); HEMATOCRIT 35.4 % (36.0-47.0); LYMPH # 1.4 10^3/uL (1.5-5.0); MEAN CORPUSCULAR HEMOGLOBIN 30.1 pg (27.0-33.0); MEAN CORPUSCULAR HGB CONC 31.1 g/dl (32.0-36.5); MONO # 0.8 10^3/uL (0.0-0.8); NEUTROPHILS # 6.6 10^3/uL (1.5-8.5); NEUTROPHILS % 71.7 % (36.0-66.0); PLATELET COUNT, AUTOMATED 207 10^3/uL (150-450); RED BLOOD COUNT 3.65 10^6/uL (4.00-5.40); WHITE BLOOD COUNT 9.2 10^3/uL (4.0-10.0)
[2024-08-30 18:46] LABS: CALCIUM LEVEL 8.7 MG/DL (8.3-10.6); CREATININE FOR GFR 1.52 MG/DL (0.55-1.30); GLOMERULAR FILTRATION RATE 35.3 (>39); MAGNESIUM LEVEL 2.1 MG/DL (1.8-2.4); POTASSIUM SERUM 4.5 MMOL/L (3.5-5.1)
[2024-08-30] MEDS ORDERED: NS (Normal Saline) 0.9% 1,000 ML IV ONE (19:10)
[2024-08-30] MEDS: NS 500 ML IV ONE (19:23)
[2024-08-30 19:52] LABS: ALBUMIN 3.6 G/DL (3.2-5.2); BILIRUBIN,DIRECT 0.2 MG/DL (<0.4); BILIRUBIN,TOTAL 0.5 MG/DL (0.3-1.2); TOTAL PROTEIN 6.2 G/DL (5.7-8.2)
[2024-08-30] MEDS ORDERED: MORP15TA2 PO (20:24)
[2024-08-30] MEDS ORDERED: CITA40TA7 PO (20:24)
[2024-08-30] MEDS ORDERED: ELIQ5TAB PO (20:24)
[2024-08-30] MEDS ORDERED: METO50TA7 PO (20:24)
[2024-08-30] MEDS ORDERED: LISI40TA4 PO (20:24)
[2024-08-30] MEDS ORDERED: HOME MED LIST COMPLETE! XX SCH (20:30)
[2024-08-30] MEDS: FLUTICASONE PROP 0.05% NASAL SPRAY 16 GM (FLONASE) NARES SCH (21:00)
[2024-08-30] MEDS: SENNA 8.6 MG TAB (SENOKOT) PO SCH (21:00)
[2024-08-30] MEDS: DOCUSATE SODIUM 100MG CAPSULE PO SCH (21:00)
[2024-08-30] MEDS ORDERED: MOM 30ML SUSPENSION UDC PO PRN (21:35)
[2024-08-30] MEDS ORDERED: LORATADINE 10 MG TAB PO PRN (21:35)
[2024-08-30] MEDS ORDERED: ALBUTEROL 90 MCG/ACT 8GM HFA INHALER INH PRN (21:35)
[2024-08-30] MEDS ORDERED: MAALOX 30 ML SUSP *UDC PO PRN (21:35)
[2024-08-30] MEDS: busPIRone 5 MG TAB PO SCH (22:04)
[2024-08-30] MEDS: PANTOPRAZOLE 40MG TAB (PROTONIX) PO SCH (22:04)
[2024-08-30] MEDS: ACETAMINOPHEN 500 MG TAB PO SCH (22:05)
[2024-08-30] MEDS: APIXABAN 5 MG TAB (ELIQUIS) PO SCH (22:05)
[2024-08-30] MEDS: METOPROLOL TART 50 MG TAB PO SCH (22:07)
[2024-08-30] MEDS: traZODone 50 MG TAB PO SCH (22:07)
[2024-08-30] MEDS: NS (Normal Saline) 0.9% 1,000 ML IV SCH (23:05)
[2024-08-30 23:41] LABS: INR 1.35; PARTIAL THROMBOPLASTIN TIME 35.9 SECONDS (24.8-34.2); PROTHROMBIN TIME 16.9 SECONDS (12.5-14.5)
[2024-08-31 07:07] LABS: HEMATOCRIT 38.6 % (36.0-47.0); HEMOGLOBIN 11.5 g/dl (12.0-15.5); MEAN CORPUSCULAR HEMOGLOBIN 29.9 pg (27.0-33.0); MEAN CORPUSCULAR HGB CONC 29.8 g/dl (32.0-36.5); MEAN CORPUSCULAR VOLUME 100.5 fl (80.0-96.0); PLATELET COUNT, AUTOMATED 171 10^3/uL (150-450); RED BLOOD COUNT 3.84 10^6/uL (4.00-5.40); WHITE BLOOD COUNT 7.8 10^3/uL (4.0-10.0)
[2024-08-31 07:49] LABS: ALBUMIN 3.4 G/DL (3.2-5.2); BILIRUBIN,TOTAL 0.3 MG/DL (0.3-1.2); CALCIUM LEVEL 8.1 MG/DL (8.3-10.6); CREATININE FOR GFR 1.45 MG/DL (0.55-1.30); GLOMERULAR FILTRATION RATE 37.3 (>39); MAGNESIUM LEVEL 2.1 MG/DL (1.8-2.4); POTASSIUM SERUM 4.7 MMOL/L (3.5-5.1); TOTAL PROTEIN 6.2 G/DL (5.7-8.2)
[2024-08-31] MEDS: ADVAIR HFA 115/21MCG INHALER INH SCH (08:00)
[2024-08-31] MEDS: TIOTROPIUM INHALER/CAPSULE (SPIRIVA) INH SCH (08:00)
[2024-08-31] MEDS: buPROPion **XL** TABLET 150MG (WELLBUTRIN XL) PO SCH (08:30)
[2024-08-31] MEDS: ATORVASTATIN 20 MG TAB PO SCH (08:30)
[2024-08-31] MEDS: MONTELUKAST 10 MG TAB PO SCH (08:30)
[2024-08-31] MEDS: ASPIRIN 81MG ENTERIC TABLET PO SCH (08:31)
[2024-08-31] MEDS: MULTIVITAMINS/MINERALS THERAP 1 TAB PO SCH (08:32)
[2024-08-31] MEDS: CitaloPRAM (CeleXA) 20 MG TAB PO SCH (08:32)
[2024-08-31] MEDS ORDERED: ENTER DRUG NAME HERE (PATIENT'S OWN MED) INH SCH (09:00)
[2024-08-31] MEDS: MORPHINE SULFATE TAB EXT REL 15 MG PO SCH (09:00)
[2024-08-31] MEDS ORDERED: MORPHINE SULFATE TAB IMM. REL. 30 MG PO SCH (09:00)
[2024-08-31 13:45] VITALS: BP 156/67; TEMP 98.2; O2SAT 96
[2024-08-31 16:00] VITALS: BP 142/63; TEMP 97.3; O2SAT 98
[2024-08-31 18:59] LABS: KETONE, URINE AUTO RFX NEGATIVE (NEGATIVE); LEUKOCYTE ESTERASE UR AUTO RFX NEGATIVE (NEGATIVE); NITRITE, URINE AUTO RFX NEGATIVE (NEGATIVE); RBC, URINE AUTO RFX 0 /HPF (0-3); SQUAM EPITHELIAL CELL UR AURFX 1 /HPF (0-6); WBC, URINE AUTO RFX 0 /HPF (0-3)
[2024-08-31 19:36] VITALS: BP 152/69; TEMP 98.5; O2SAT 93
[2024-08-31 23:37] VITALS: BP 148/63; TEMP 97.6; O2SAT 95
[2024-09-01] VITALS (8 sets, daily range): BP systolic 122–143; BP diastolic 51–76; TEMP 97.1–97.8; O2SAT 97–100
[2024-09-01 08:33] LABS: BASO % 0.3 % (0.0-1.0); EOS # 0.3 10^3/uL (0.0-0.5); EOS % 3.4 % (0.0-3.0); HEMATOCRIT 35.7 % (36.0-47.0); HEMOGLOBIN 10.7 g/dl (12.0-15.5); LYMPH # 1.2 10^3/uL (1.5-5.0); LYMPH % 15.2 % (24.0-44.0); MEAN CORPUSCULAR HEMOGLOBIN 29.7 pg (27.0-33.0); MEAN CORPUSCULAR VOLUME 99.2 fl (80.0-96.0); MONO # 0.7 10^3/uL (0.0-0.8); MONO % 8.4 % (2.0-8.0); NEUTROPHILS # 5.7 10^3/uL (1.5-8.5); NEUTROPHILS % 72.3 % (36.0-66.0); PLATELET COUNT, AUTOMATED 152 10^3/uL (150-450); WHITE BLOOD COUNT 7.9 10^3/uL (4.0-10.0)
[2024-09-01 08:45] LABS: BLOOD UREA NITROGEN 15 MG/DL (9-23); CARBON DIOXIDE LEVEL 32 MMOL/L (20-31); CHLORIDE LEVEL 110 MMOL/L (98-107); CREATININE FOR GFR 0.72 MG/DL (0.55-1.30); GLOMERULAR FILTRATION RATE > 60.0 (>39); GLUCOSE, FASTING 109 MG/DL (74-106); POTASSIUM SERUM 4.8 MMOL/L (3.5-5.1); SODIUM LEVEL 146 MMOL/L (136-145)
[2024-09-01] MEDS: LACTATED RINGER'S 1000 ML IV ONE (11:35)
[2024-09-02] VITALS (7 sets, daily range): BP systolic 133–182; BP diastolic 60–75; TEMP 97.7–98.5; O2SAT 93–97
[2024-09-02 10:14] LABS: BLOOD UREA NITROGEN 11 MG/DL (9-23); CALCIUM LEVEL 8.4 MG/DL (8.3-10.6); CARBON DIOXIDE LEVEL 34 MMOL/L (20-31); CHLORIDE LEVEL 106 MMOL/L (98-107); CREATININE FOR GFR 0.66 MG/DL (0.55-1.30); GLOMERULAR FILTRATION RATE > 60.0 (>39); GLUCOSE, FASTING 139 MG/DL (74-106); POTASSIUM SERUM 4.4 MMOL/L (3.5-5.1); SODIUM LEVEL 143 MMOL/L (136-145)
[2024-09-03 03:33] VITALS: BP 150/66; TEMP 98.1; O2SAT 98
[2024-09-03 11:22] VITALS: BP 126/60; TEMP 97.4; O2SAT 96
[2024-09-04 10:03] VITALS: BP 147/91
[2024-09-04] MEDS ORDERED: AMLO1TAB25 PO (10:27)
[2024-09-04] MEDS ORDERED: METO1TAB87 PO (12:12)
== END 2024-09-04 11:05 ==
LOC: EDBD 14:46 → M ED 14:46 → M ED INP 14:47 → M MS4PR 08-31 13:33
PROVIDERS: ADMIT Student in an Organized Health Care Education/Training Program; ATTEND Internal Medicine
DX: N17.9 Acute kidney failure, unspecified (principal); R19.7 Diarrhea, unspecified; S81.811A Laceration without foreign body, right lower leg, initial encounter; S00.93XA Contusion of unspecified part of head, initial encounter; M54.2 Cervicalgia; W06.XXXA Fall from bed, initial encounter; Y92.122 Bedroom in nursing home as the place of occurrence of the external cause; I48.91 Unspecified atrial fibrillation; G89.29 Other chronic pain; E86.0 Dehydration; I25.10 Atherosclerotic heart disease of native coronary artery without angina pectoris; I10 Essential (primary) hypertension; E87.0 Hyperosmolality and hypernatremia; R00.1 Bradycardia, unspecified; G47.00 Insomnia, unspecified; J44.9 Chronic obstructive pulmonary disease, unspecified; G47.33 Obstructive sleep apnea (adult) (pediatric); K21.9 Gastro-esophageal reflux disease without esophagitis; M19.90 Unspecified osteoarthritis, unspecified site; M85.80 Other specified disorders of bone density and structure, unspecified site; E66.9 Obesity, unspecified; F32.A Depression, unspecified; F41.9 Anxiety disorder, unspecified; Z98.41 Cataract extraction status, right eye; Z98.42 Cataract extraction status, left eye; Z90.79 Acquired absence of other genital organ(s); Z87.891 Personal history of nicotine dependence; Z79.01 Long term (current) use of anticoagulants; Z79.82 Long term (current) use of aspirin; Z79.891 Long term (current) use of opiate analgesic; Z79.899 Other long term (current) drug therapy; Z88.0 Allergy status to penicillin; Z95.5 Presence of coronary angioplasty implant and graft
CPT/HCPCS: 36415; 70450; 72125; 76775; 80048; 80053; 80076; 81001; 83735; 85025; 85027; 85610; 85730; 87486; 87581; 87633; 87798; 93005; 94640; 94664; 96360; 96361; 97116; 97161; 97530; 99284; G0378

== ENCOUNTER → 2024-09-05 | Outpatient (CLI) | payer MEDICARE, MEDICAID ==
[~2024-09-05] MED LIST changes: +AMLO1TAB25 PO; +CITA40TA7 PO; +LISI40TA4 PO; +METO1TAB87 PO; +METO50TA7 PO; +MORP15TA2 PO
== END ==
LOC: M RAD 11:22
PROVIDERS: ATTEND Nurse Practitioner Family
DX: M89.551 Osteolysis, right thigh (principal)

== ENCOUNTER → 2024-09-25 | Outpatient (REF) | payer MEDICARE, MEDICAID | PROVIDERS: ATTEND Physician Assistant | DX: R06.02 Shortness of breath (principal); I28.8 Other diseases of pulmonary vessels; M89.9 Disorder of bone, unspecified; Z98.890 Other specified postprocedural states; I50.9 Heart failure, unspecified ==

== ENCOUNTER → 2024-09-25 | Outpatient (REF) | payer MEDICARE, MEDICAID ==
[2024-09-25 13:00] LABS: HEMATOCRIT 31.7 % (36.0-47.0); HEMOGLOBIN 9.6 g/dl (12.0-15.5); MEAN CORPUSCULAR HEMOGLOBIN 29.5 pg (27.0-33.0); MEAN CORPUSCULAR HGB CONC 30.3 g/dl (32.0-36.5); MEAN CORPUSCULAR VOLUME 97.5 fl (80.0-96.0); PLATELET COUNT, AUTOMATED 218 10^3/uL (150-450); RED BLOOD COUNT 3.25 10^6/uL (4.00-5.40); WHITE BLOOD COUNT 12.2 10^3/uL (4.0-10.0)
[2024-09-25 13:35] LABS: BLOOD UREA NITROGEN 14 MG/DL (9-23); CALCIUM LEVEL 8.6 MG/DL (8.3-10.6); CARBON DIOXIDE LEVEL 33 MMOL/L (20-31); CHLORIDE LEVEL 103 MMOL/L (98-107); CREATININE FOR GFR 0.57 MG/DL (0.55-1.30); GLOMERULAR FILTRATION RATE > 60.0 (>39); GLUCOSE, FASTING 91 MG/DL (74-106); POTASSIUM SERUM 4.4 MMOL/L (3.5-5.1); SODIUM LEVEL 143 MMOL/L (136-145)
== END ==
PROVIDERS: ATTEND Physician Assistant
DX: I50.9 Heart failure, unspecified (principal)

== ENCOUNTER → 2024-09-26 | Outpatient (REF) | payer MEDICARE, MEDICAID ==
[2024-09-26 14:32] LABS: HEMATOCRIT 30.4 % (36.0-47.0); HEMOGLOBIN 9.3 g/dl (12.0-15.5); MEAN CORPUSCULAR HEMOGLOBIN 29.9 pg (27.0-33.0); MEAN CORPUSCULAR HGB CONC 30.6 g/dl (32.0-36.5); MEAN CORPUSCULAR VOLUME 97.7 fl (80.0-96.0); PLATELET COUNT, AUTOMATED 196 10^3/uL (150-450); RED BLOOD COUNT 3.11 10^6/uL (4.00-5.40); WHITE BLOOD COUNT 11.2 10^3/uL (4.0-10.0)
== END ==
PROVIDERS: ATTEND Physician Assistant
DX: I50.9 Heart failure, unspecified (principal)

== ENCOUNTER → 2024-09-27 | Outpatient (REF) | payer MEDICARE, MEDICAID ==
[2024-09-27 09:11] LABS: HEMATOCRIT 33.9 % (36.0-47.0); HEMOGLOBIN 10.3 g/dl (12.0-15.5); MEAN CORPUSCULAR HEMOGLOBIN 29.6 pg (27.0-33.0); MEAN CORPUSCULAR HGB CONC 30.4 g/dl (32.0-36.5); MEAN CORPUSCULAR VOLUME 97.4 fl (80.0-96.0); PLATELET COUNT, AUTOMATED 242 10^3/uL (150-450); RED BLOOD COUNT 3.48 10^6/uL (4.00-5.40); WHITE BLOOD COUNT 10.4 10^3/uL (4.0-10.0)
[2024-09-27 09:39] LABS: BLOOD UREA NITROGEN 14 MG/DL (9-23); CARBON DIOXIDE LEVEL 38 MMOL/L (20-31); CHLORIDE LEVEL 98 MMOL/L (98-107); CREATININE FOR GFR 0.65 MG/DL (0.55-1.30); GLOMERULAR FILTRATION RATE > 60.0 (>39); GLUCOSE, FASTING 129 MG/DL (74-106); POTASSIUM SERUM 3.8 MMOL/L (3.5-5.1); SODIUM LEVEL 145 MMOL/L (136-145)
== END ==
PROVIDERS: ATTEND Physician Assistant
DX: I50.9 Heart failure, unspecified (principal)

== ENCOUNTER → 2024-09-30 | Outpatient (REF) | payer MEDICARE, MEDICAID ==
[2024-09-30 10:10] LABS: HEMATOCRIT 32.5 % (36.0-47.0); MEAN CORPUSCULAR HEMOGLOBIN 29.6 pg (27.0-33.0); MEAN CORPUSCULAR HGB CONC 30.8 g/dl (32.0-36.5); MEAN CORPUSCULAR VOLUME 96.2 fl (80.0-96.0); PLATELET COUNT, AUTOMATED 216 10^3/uL (150-450); RED BLOOD COUNT 3.38 10^6/uL (4.00-5.40); WHITE BLOOD COUNT 8.9 10^3/uL (4.0-10.0)
[2024-09-30 10:48] LABS: BLOOD UREA NITROGEN 16 MG/DL (9-23); CARBON DIOXIDE LEVEL 36 MMOL/L (20-31); CHLORIDE LEVEL 101 MMOL/L (98-107); CREATININE FOR GFR 0.65 MG/DL (0.55-1.30); GLOMERULAR FILTRATION RATE > 60.0 (>39); GLUCOSE, FASTING 151 MG/DL (74-106); POTASSIUM SERUM 3.8 MMOL/L (3.5-5.1); SODIUM LEVEL 143 MMOL/L (136-145)
== END ==
PROVIDERS: ATTEND Physician Assistant
DX: I50.9 Heart failure, unspecified (principal)

== ENCOUNTER → 2024-10-01 | Outpatient (REF) | payer MEDICARE, MEDICAID | PROVIDERS: ATTEND Internal Medicine | DX: I50.9 Heart failure, unspecified (principal); I28.8 Other diseases of pulmonary vessels; Z98.890 Other specified postprocedural states ==

== ENCOUNTER → 2024-10-09 | Outpatient (REF) | payer MEDICARE, MEDICAID | PROVIDERS: ATTEND Physician Assistant | DX: I50.9 Heart failure, unspecified (principal) ==

== ENCOUNTER → 2024-10-14 | Outpatient (REF) | payer MEDICARE, MEDICAID ==
[2024-10-14 09:50] LABS: HEMATOCRIT 33.2 % (36.0-47.0); MEAN CORPUSCULAR HEMOGLOBIN 28.8 pg (27.0-33.0); MEAN CORPUSCULAR HGB CONC 30.1 g/dl (32.0-36.5); MEAN CORPUSCULAR VOLUME 95.7 fl (80.0-96.0); PLATELET COUNT, AUTOMATED 232 10^3/uL (150-450); RED BLOOD COUNT 3.47 10^6/uL (4.00-5.40); WHITE BLOOD COUNT 10.2 10^3/uL (4.0-10.0)
[2024-10-14 10:23] LABS: BLOOD UREA NITROGEN 15 MG/DL (9-23); CALCIUM LEVEL 8.7 MG/DL (8.3-10.6); CARBON DIOXIDE LEVEL 38 MMOL/L (20-31); CHLORIDE LEVEL 100 MMOL/L (98-107); CREATININE FOR GFR 0.64 MG/DL (0.55-1.30); GLOMERULAR FILTRATION RATE > 60.0 (>39); GLUCOSE, FASTING 118 MG/DL (74-106); POTASSIUM SERUM 3.9 MMOL/L (3.5-5.1); SODIUM LEVEL 144 MMOL/L (136-145)
== END ==
PROVIDERS: ATTEND Physician Assistant
DX: I50.9 Heart failure, unspecified (principal)

== ENCOUNTER → 2024-10-21 | Outpatient (REF) | payer MEDICARE, MEDICAID | LOC: M PLAIMG 10:45 | PROVIDERS: ATTEND Physician Assistant | DX: R06.02 Shortness of breath (principal) ==

== ENCOUNTER → 2024-10-21 | Outpatient (REF) | payer MEDICARE, MEDICAID ==
[2024-10-21 14:04] LABS: HEMATOCRIT 33.4 % (36.0-47.0); MEAN CORPUSCULAR HGB CONC 29.9 g/dl (32.0-36.5); MEAN CORPUSCULAR VOLUME 96.8 fl (80.0-96.0); PLATELET COUNT, AUTOMATED 237 10^3/uL (150-450); RED BLOOD COUNT 3.45 10^6/uL (4.00-5.40); WHITE BLOOD COUNT 11.6 10^3/uL (4.0-10.0)
[2024-10-21 14:20] LABS: BLOOD UREA NITROGEN 14 MG/DL (9-23); CALCIUM LEVEL 8.4 MG/DL (8.3-10.6); CARBON DIOXIDE LEVEL 36 MMOL/L (20-31); CHLORIDE LEVEL 98 MMOL/L (98-107); CREATININE FOR GFR 0.65 MG/DL (0.55-1.30); GLOMERULAR FILTRATION RATE > 60.0 (>39); GLUCOSE, FASTING 129 MG/DL (74-106); POTASSIUM SERUM 3.5 MMOL/L (3.5-5.1); SODIUM LEVEL 143 MMOL/L (136-145)
== END ==
PROVIDERS: ATTEND Physician Assistant
DX: R06.02 Shortness of breath (principal)

== ENCOUNTER → 2024-10-23 | Outpatient (REF) | payer MEDICARE, MEDICAID ==
[2024-10-23 09:51] LABS: HEMATOCRIT 29.6 % (36.0-47.0); HEMOGLOBIN 8.9 g/dl (12.0-15.5); MEAN CORPUSCULAR HEMOGLOBIN 29.1 pg (27.0-33.0); MEAN CORPUSCULAR HGB CONC 30.1 g/dl (32.0-36.5); MEAN CORPUSCULAR VOLUME 96.7 fl (80.0-96.0); PLATELET COUNT, AUTOMATED 189 10^3/uL (150-450); RED BLOOD COUNT 3.06 10^6/uL (4.00-5.40); WHITE BLOOD COUNT 12.1 10^3/uL (4.0-10.0)
[2024-10-23 10:36] LABS: BLOOD UREA NITROGEN 14 MG/DL (9-23); CALCIUM LEVEL 8.2 MG/DL (8.3-10.6); CARBON DIOXIDE LEVEL 38 MMOL/L (20-31); CHLORIDE LEVEL 101 MMOL/L (98-107); CREATININE FOR GFR 0.63 MG/DL (0.55-1.30); GLOMERULAR FILTRATION RATE > 60.0 (>39); GLUCOSE, FASTING 85 MG/DL (74-106); POTASSIUM SERUM 3.6 MMOL/L (3.5-5.1); SODIUM LEVEL 146 MMOL/L (136-145)
== END ==
PROVIDERS: ATTEND Physician Assistant
DX: I50.9 Heart failure, unspecified (principal)

== ENCOUNTER → 2024-10-30 | Outpatient (REF) | payer MEDICARE, MEDICAID ==
[2024-10-30 09:12] LABS: HEMATOCRIT 31.9 % (36.0-47.0); HEMOGLOBIN 9.4 g/dl (12.0-15.5); MEAN CORPUSCULAR HEMOGLOBIN 28.1 pg (27.0-33.0); MEAN CORPUSCULAR HGB CONC 29.5 g/dl (32.0-36.5); MEAN CORPUSCULAR VOLUME 95.2 fl (80.0-96.0); PLATELET COUNT, AUTOMATED 245 10^3/uL (150-450); RED BLOOD COUNT 3.35 10^6/uL (4.00-5.40); WHITE BLOOD COUNT 10.9 10^3/uL (4.0-10.0)
[2024-10-30 09:44] LABS: BLOOD UREA NITROGEN 25 MG/DL (9-23); CALCIUM LEVEL 9.1 MG/DL (8.3-10.6); CARBON DIOXIDE LEVEL > 40.0 MMOL/L (20-31); CHLORIDE LEVEL 96 MMOL/L (98-107); CREATININE FOR GFR 0.88 MG/DL (0.55-1.30); GLOMERULAR FILTRATION RATE > 60.0 (>39); GLUCOSE, FASTING 105 MG/DL (74-106); POTASSIUM SERUM 3.6 MMOL/L (3.5-5.1); SODIUM LEVEL 142 MMOL/L (136-145)
== END ==
PROVIDERS: ATTEND Physician Assistant
DX: I50.9 Heart failure, unspecified (principal)

== ENCOUNTER → 2024-10-31 | Outpatient (REF) | payer MEDICARE, MEDICAID ==
[2024-10-31 14:31] LABS: BLOOD UREA NITROGEN 28 MG/DL (9-23); CALCIUM LEVEL 8.7 MG/DL (8.3-10.6); CARBON DIOXIDE LEVEL 39 MMOL/L (20-31); CHLORIDE LEVEL 97 MMOL/L (98-107); CREATININE FOR GFR 0.92 MG/DL (0.55-1.30); GLOMERULAR FILTRATION RATE > 60.0 (>39); GLUCOSE, FASTING 107 MG/DL (74-106); POTASSIUM SERUM 3.9 MMOL/L (3.5-5.1); SODIUM LEVEL 142 MMOL/L (136-145)
== END ==
PROVIDERS: ATTEND Physician Assistant
DX: R06.02 Shortness of breath (principal)

== ENCOUNTER → 2024-11-01 | Outpatient (CLI) | payer MEDICARE, MEDICAID ==
[~2024-11-01] MED LIST changes: +ISOVUE-370 76% 100ML VIAL As Ordered ONE
== END ==
LOC: M RAD 10:22
PROVIDERS: ATTEND Internal Medicine
DX: I51.7 Cardiomegaly (principal); R91.1 Solitary pulmonary nodule; R91.8 Other nonspecific abnormal finding of lung field; R06.02 Shortness of breath; R09.02 Hypoxemia
CPT/HCPCS: 71260; Q9967

== ENCOUNTER → 2024-11-06 | Outpatient (REF) ==
[~2024-11-06] MED LIST changes: -ISOVUE-370 76% 100ML VIAL As Ordered ONE
[2024-11-06 09:39] LABS: HEMATOCRIT 29.2 % (36.0-47.0); HEMOGLOBIN 8.6 g/dl (12.0-15.5); MEAN CORPUSCULAR HEMOGLOBIN 28.5 pg (27.0-33.0); MEAN CORPUSCULAR HGB CONC 29.5 g/dl (32.0-36.5); MEAN CORPUSCULAR VOLUME 96.7 fl (80.0-96.0); PLATELET COUNT, AUTOMATED 180 10^3/uL (150-450); RED BLOOD COUNT 3.02 10^6/uL (4.00-5.40); WHITE BLOOD COUNT 9.7 10^3/uL (4.0-10.0)
[2024-11-06 10:05] LABS: BLOOD UREA NITROGEN 22 MG/DL (9-23); CALCIUM LEVEL 8.4 MG/DL (8.3-10.6); CARBON DIOXIDE LEVEL 39 MMOL/L (20-31); CHLORIDE LEVEL 100 MMOL/L (98-107); CREATININE FOR GFR 0.91 MG/DL (0.55-1.30); GLOMERULAR FILTRATION RATE > 60.0 (>39); GLUCOSE, FASTING 81 MG/DL (74-106); POTASSIUM SERUM 3.8 MMOL/L (3.5-5.1); SODIUM LEVEL 142 MMOL/L (136-145)
== END ==
PROVIDERS: ATTEND Physician Assistant
DX: I50.9 Heart failure, unspecified (principal)

== ENCOUNTER → 2024-11-18 | Outpatient (REF) | payer MEDICARE, MEDICAID ==
[~2024-11-18] MED LIST changes: +ACET1TAB55 PO; +ALBU10.7 INH; +BISA10SU PR; +FLEEENE12 PR; +METO25TA PO; +MILK400S12 PO; +MIRA3350 PO; +MUCI600T31 PO; +OLME20TA50 PO; +ONDA-83 PO; +SPIR-10 PO
[2024-11-18 09:28] LABS: HEMATOCRIT 27.8 % (36.0-47.0); HEMOGLOBIN 8.3 g/dl (12.0-15.5); MEAN CORPUSCULAR HGB CONC 29.9 g/dl (32.0-36.5); MEAN CORPUSCULAR VOLUME 93.9 fl (80.0-96.0); PLATELET COUNT, AUTOMATED 231 10^3/uL (150-450); RED BLOOD COUNT 2.96 10^6/uL (4.00-5.40); WHITE BLOOD COUNT 11.6 10^3/uL (4.0-10.0)
[2024-11-18 10:01] LABS: CALCIUM LEVEL 8.8 MG/DL (8.3-10.6); CREATININE FOR GFR 4.11 MG/DL (0.55-1.30); GLOMERULAR FILTRATION RATE 11.2 (>39)
== END ==
PROVIDERS: ATTEND Physician Assistant
DX: R11.0 Nausea (principal)

== ENCOUNTER → 2024-11-18 | Outpatient (REF) | payer MEDICARE, MEDICAID | PROVIDERS: ATTEND Physician Assistant | DX: R11.0 Nausea (principal) ==

== ENCOUNTER → 2024-11-18 | Outpatient (REF) | payer MEDICAID, MEDICARE | PROVIDERS: ATTEND Physician Assistant | DX: I50.9 Heart failure, unspecified (principal); Z53.8 Procedure and treatment not carried out for other reasons ==

== ENCOUNTER → 2024-11-20 | Outpatient (REF) | payer MEDICARE, MEDICAID | PROVIDERS: ATTEND Physician Assistant | DX: I50.9 Heart failure, unspecified (principal); Z53.9 Procedure and treatment not carried out, unspecified reason ==

== ENCOUNTER → 2024-11-27 | Outpatient (REF) | payer MEDICAID, MEDICARE ==
[~2024-11-27] MED LIST changes: +ALDA25TA2 PO; +FURO80TA2 PO; +LOPR1TAB7 PO
[2024-11-27 08:30] LABS: HEMATOCRIT 31.5 % (36.0-47.0); HEMOGLOBIN 9.7 g/dl (12.0-15.5); MEAN CORPUSCULAR HEMOGLOBIN 28.1 pg (27.0-33.0); MEAN CORPUSCULAR HGB CONC 30.8 g/dl (32.0-36.5); MEAN CORPUSCULAR VOLUME 91.3 fl (80.0-96.0); PLATELET COUNT, AUTOMATED 251 10^3/uL (150-450); RED BLOOD COUNT 3.45 10^6/uL (4.00-5.40)
[2024-11-27 09:03] LABS: BLOOD UREA NITROGEN 17 MG/DL (9-23); CALCIUM LEVEL 8.3 MG/DL (8.3-10.6); CARBON DIOXIDE LEVEL 34 MMOL/L (20-31); CHLORIDE LEVEL 100 MMOL/L (98-107); CREATININE FOR GFR 0.88 MG/DL (0.55-1.30); GLOMERULAR FILTRATION RATE > 60.0 (>39); GLUCOSE, FASTING 84 MG/DL (74-106); POTASSIUM SERUM 3.7 MMOL/L (3.5-5.1); SODIUM LEVEL 143 MMOL/L (136-145)
== END ==
PROVIDERS: ATTEND Physician Assistant
DX: I50.9 Heart failure, unspecified (principal)

== ENCOUNTER → 2024-12-04 | Outpatient (REF) ==
[2024-12-04 07:45] LABS: HEMOGLOBIN 10.7 g/dl (12.0-15.5); MEAN CORPUSCULAR HEMOGLOBIN 28.5 pg (27.0-33.0); MEAN CORPUSCULAR HGB CONC 30.6 g/dl (32.0-36.5); MEAN CORPUSCULAR VOLUME 93.1 fl (80.0-96.0); PLATELET COUNT, AUTOMATED 253 10^3/uL (150-450); RED BLOOD COUNT 3.76 10^6/uL (4.00-5.40); WHITE BLOOD COUNT 11.9 10^3/uL (4.0-10.0)
[2024-12-04 08:16] LABS: BLOOD UREA NITROGEN 12 MG/DL (9-23); CARBON DIOXIDE LEVEL 29 MMOL/L (20-31); CHLORIDE LEVEL 106 MMOL/L (98-107); CREATININE FOR GFR 0.74 MG/DL (0.55-1.30); GLOMERULAR FILTRATION RATE > 60.0 (>39); GLUCOSE, FASTING 97 MG/DL (74-106); POTASSIUM SERUM 3.6 MMOL/L (3.5-5.1); SODIUM LEVEL 145 MMOL/L (136-145)
== END ==
PROVIDERS: ATTEND Physician Assistant
DX: I50.9 Heart failure, unspecified (principal)

== ENCOUNTER → 2024-12-09 | Outpatient (REF) | payer MEDICARE, MEDICAID ==
[2024-12-09 08:56] LABS: HEMATOCRIT 35.9 % (36.0-47.0); HEMOGLOBIN 10.9 g/dl (12.0-15.5); MEAN CORPUSCULAR HEMOGLOBIN 28.4 pg (27.0-33.0); MEAN CORPUSCULAR HGB CONC 30.4 g/dl (32.0-36.5); MEAN CORPUSCULAR VOLUME 93.5 fl (80.0-96.0); PLATELET COUNT, AUTOMATED 253 10^3/uL (150-450); RED BLOOD COUNT 3.84 10^6/uL (4.00-5.40); WHITE BLOOD COUNT 10.1 10^3/uL (4.0-10.0)
[2024-12-09 09:21] LABS: CALCIUM LEVEL 8.4 MG/DL (8.3-10.6); CREATININE FOR GFR 0.7 MG/DL (0.55-1.30); POTASSIUM SERUM 4.1 MMOL/L (3.5-5.1)
== END ==
PROVIDERS: ATTEND Physician Assistant
DX: I50.9 Heart failure, unspecified (principal)

== ENCOUNTER → 2024-12-11 | Outpatient (REF) | payer MEDICARE, MEDICAID | PROVIDERS: ATTEND Physician Assistant | DX: M54.89 Other dorsalgia (principal); I51.7 Cardiomegaly; Z98.890 Other specified postprocedural states ==

== ENCOUNTER → 2024-12-11 | Outpatient (REF) | PROVIDERS: ATTEND Physician Assistant | DX: R05.9 Cough, unspecified (principal) ==

== ENCOUNTER → 2024-12-13 | Outpatient (REF) | payer MEDICAID, MEDICARE | PROVIDERS: ATTEND Physician Assistant | DX: I50.9 Heart failure, unspecified (principal); Z53.8 Procedure and treatment not carried out for other reasons ==

== ENCOUNTER → 2024-12-13 | Outpatient (REF) | PROVIDERS: ATTEND Physician Assistant | DX: I50.9 Heart failure, unspecified (principal); Z53.8 Procedure and treatment not carried out for other reasons ==

== ENCOUNTER → 2025-03-03 | Outpatient (CLI) | payer MEDICARE, MEDICAID ==
[~2025-03-03] MED LIST changes: -BUPR-597 PO; +BUPR-766 PO; +CIPRHCOTIC AU; +LIDO1ADH93 TD; +LISI40TA10 PO; -LISI40TA4 PO; +MAGN400T33 PO; +METO100T5 PO; +PHEN26CR PR; +VELT1POW PO
== END ==
LOC: M SLEEP 20:00
PROVIDERS: ATTEND Internal Medicine Pulmonary Disease
DX: G47.33 Obstructive sleep apnea (adult) (pediatric) (principal); G47.61 Periodic limb movement disorder

== ENCOUNTER → 2025-03-03 | Outpatient (REF) | payer MEDICARE, MEDICAID ==
[~2025-03-03] MED LIST changes: -ACE65ERTAB PO; +ACET-1515 PO; +ACET-1593 PO; -ACET650T15 PO
[2025-03-03 11:21] LABS: CALCIUM LEVEL 9.1 MG/DL (8.3-10.6); CARBON DIOXIDE LEVEL 30.0 MMOL/L (20-31); CHLORIDE LEVEL 98.0 MMOL/L (98-107); CREATININE FOR GFR 0.87 MG/DL (0.55-1.30); GLOMERULAR FILTRATION RATE 68.6 (>39); MAGNESIUM LEVEL 1.5 MG/DL (1.8-2.4); POTASSIUM SERUM 3.3 MMOL/L (3.5-5.1); SODIUM LEVEL 144.0 MMOL/L (136-145)
== END ==
PROVIDERS: ATTEND Student in an Organized Health Care Education/Training Program
DX: E87.5 Hyperkalemia (principal); E83.42 Hypomagnesemia

== ENCOUNTER → 2025-03-28 | Outpatient (REF) | payer MEDICARE, MEDICAID ==
[2025-03-28 11:07] LABS: BASO # 0.0 10^3/uL (0.0-0.2); BASO % 0.2 % (0.0-1.0); EOS # 0.2 10^3/uL (0.0-0.5); EOS % 1.9 % (0.0-3.0); LYMPH # 1.3 10^3/uL (1.5-5.0); LYMPH % 14.1 % (24.0-44.0); MONO # 0.7 10^3/uL (0.0-0.8); MONO % 7.9 % (2.0-8.0); NEUTROPHILS # 7.0 10^3/uL (1.5-8.5); NEUTROPHILS % 74.8 % (36.0-66.0); PLATELET COUNT, AUTOMATED 276 10^3/uL (150-450)
[2025-03-28 11:34] LABS: CALCIUM LEVEL 8.3 MG/DL (8.3-10.6); CARBON DIOXIDE LEVEL 32.0 MMOL/L (20-31); CHLORIDE LEVEL 100.0 MMOL/L (98-107); CREATININE FOR GFR 0.7 MG/DL (0.55-1.30); GLOMERULAR FILTRATION RATE 89.0 (>39); PHOSPHORUS LEVEL 2.6 MG/DL (2.4-5.1); POTASSIUM SERUM 3.6 MMOL/L (3.5-5.1); SODIUM LEVEL 143.0 MMOL/L (136-145)
== END ==
PROVIDERS: ATTEND Internal Medicine Nephrology
DX: N17.9 Acute kidney failure, unspecified (principal); D63.1 Anemia in chronic kidney disease; N18.9 Chronic kidney disease, unspecified

== ENCOUNTER → 2025-04-02 | Outpatient (REF) | payer MEDICARE, MEDICAID ==
[2025-04-02 10:13] LABS: BASO # 0.0 10^3/uL (0.0-0.2); BASO % 0.2 % (0.0-1.0); EOS # 0.2 10^3/uL (0.0-0.5); EOS % 2.0 % (0.0-3.0); LYMPH # 1.3 10^3/uL (1.5-5.0); LYMPH % 13.3 % (24.0-44.0); MONO # 0.5 10^3/uL (0.0-0.8); MONO % 5.2 % (2.0-8.0); NEUTROPHILS # 7.4 10^3/uL (1.5-8.5); NEUTROPHILS % 78.7 % (36.0-66.0); PLATELET COUNT, AUTOMATED 233 10^3/uL (150-450)
[2025-04-02 10:43] LABS: CALCIUM LEVEL 8.1 MG/DL (8.3-10.6); CARBON DIOXIDE LEVEL 29.0 MMOL/L (20-31); CHLORIDE LEVEL 104.0 MMOL/L (98-107); CREATININE FOR GFR 0.67 MG/DL (0.55-1.30); GLOMERULAR FILTRATION RATE 90.0 (>39); PHOSPHORUS LEVEL 3.4 MG/DL (2.4-5.1); POTASSIUM SERUM 3.1 MMOL/L (3.5-5.1); SODIUM LEVEL 147.0 MMOL/L (136-145)
== END ==
PROVIDERS: ATTEND Internal Medicine Nephrology
DX: N17.9 Acute kidney failure, unspecified (principal); D63.1 Anemia in chronic kidney disease; N18.9 Chronic kidney disease, unspecified

== ENCOUNTER → 2025-04-14 | Outpatient (CLI) | payer MEDICARE, MEDICAID | LOC: M RAD 11:48 | PROVIDERS: ATTEND Physician Assistant | DX: I65.23 Occlusion and stenosis of bilateral carotid arteries (principal) ==

== ENCOUNTER 2025-05-17 14:27 | Emergency (ER) | payer MEDICARE, MEDICAID ==
[~2025-05-17] VITALS: Ht 157.5 cm; Wt 85.8 kg
[2025-05-17] MEDS ORDERED: ATOR-398 PO (15:09)
[2025-05-17] MEDS ORDERED: POTA1TAB24 PO (15:09)
[2025-05-17] MEDS ORDERED: LOPR1TAB6 PO (15:09)
[2025-05-17] MEDS ORDERED: TUSS15SY2 PO (16:29)
[2025-05-17 16:31] VITALS: BP 140/71; TEMP 96.5; O2SAT 95
== END 2025-05-17 16:47 | disposition home or self-care (01) ==
LOC: M ED 14:27
DX: B34.8 Other viral infections of unspecified site (principal); I10 Essential (primary) hypertension; J44.9 Chronic obstructive pulmonary disease, unspecified; K21.9 Gastro-esophageal reflux disease without esophagitis; R51.9 Headache, unspecified; F41.9 Anxiety disorder, unspecified; F32.A Depression, unspecified; Z86.79 Personal history of other diseases of the circulatory system; Z88.8 Allergy status to other drugs, medicaments and biological substances; Z79.1 Long term (current) use of non-steroidal anti-inflammatories (NSAID); Z79.01 Long term (current) use of anticoagulants; Z79.82 Long term (current) use of aspirin; Z79.02 Long term (current) use of antithrombotics/antiplatelets; Z79.899 Other long term (current) drug therapy

== ENCOUNTER → 2025-05-27 | Outpatient (REF) | payer MEDICARE, MEDICAID ==
[~2025-05-27] MED LIST changes: +ATOR-398 PO; +POTA1TAB24 PO; +TUSS15SY2 PO; +med rec comment
== END ==
LOC: M LAB REF 16:53
PROVIDERS: ATTEND Nurse Practitioner Family
DX: R06.02 Shortness of breath (principal)

== ENCOUNTER 2025-05-28 09:05 | Emergency (ER) | payer MEDICARE, MEDICAID ==
[~2025-05-28] VITALS: Ht 157.5 cm; Wt 85.8 kg
[~2025-05-28 09:05] MED LIST changes: -med rec comment
[2025-05-28 09:45] LABS: VENOUS BASE EXCESS 9.5 (-2.0-2.0); VENOUS HCO3 37.1 MMOL/L (23.0-27.0); VENOUS O2 SATURATION 69.8 % (60.0-80.0); VENOUS PARTIAL PRESSURE CO2 66.0 mmHg (38.0-50.0); VENOUS PARTIAL PRESSURE O2 40.3 mmHg (30.0-50.0); VENOUS PH 7.368 UNITS (7.330-7.430); VENOUS STANDARD HCO3 32.6 MMOL/L; VENOUS TOTAL CO2 39.2 MMOL/L (24.0-28.0)
[2025-05-28 09:57] LABS: BASO # 0.0 10^3/uL (0.0-0.2); BASO % 0.1 % (0.0-1.0); EOS # 0.1 10^3/uL (0.0-0.5); EOS % 0.6 % (0.0-3.0); LYMPH # 2.5 10^3/uL (1.5-5.0); LYMPH % 15.7 % (24.0-44.0); MONO # 0.8 10^3/uL (0.0-0.8); MONO % 4.9 % (2.0-8.0); NEUTROPHILS # 12.2 10^3/uL (1.5-8.5); NEUTROPHILS % 77.2 % (36.0-66.0); PLATELET COUNT, AUTOMATED 276 10^3/uL (150-450)
[2025-05-28 10:17] LABS: CK-MB VALUE MASS 1.3 NG/ML (<3.6)
[2025-05-28 10:19] LABS: ALT/SGPT 17.0 U/L (7.0-40); AST/SGOT 13.0 U/L (<34); CALCIUM LEVEL 8.8 MG/DL (8.3-10.6); CARBON DIOXIDE LEVEL 36.0 MMOL/L (20-31); CHLORIDE LEVEL 99.0 MMOL/L (98-107); CPK CREATINE PHOSPHOKINASE 37.0 U/L (34-145); CREATININE FOR GFR 0.75 MG/DL (0.55-1.30); GLOMERULAR FILTRATION RATE 82.0 (>39); MB/CK RELATIVE INDEX 3.51 (< OR =4); POTASSIUM SERUM 3.1 MMOL/L (3.5-5.1); SODIUM LEVEL 139.0 MMOL/L (136-145)
[2025-05-28] MEDS: POTASSIUM CHLORIDE 10MEQ SR TABLET PO ONE (10:49)
[2025-05-28] MEDS ORDERED: ISOVUE-370 76% 100 ML VIAL As Ordered ONE (11:01)
[2025-05-28 11:20] LABS: CK-MB VALUE MASS 1.2 NG/ML (<3.6)
[2025-05-28 11:22] LABS: CPK CREATINE PHOSPHOKINASE 36.0 U/L (34-145); MB/CK RELATIVE INDEX 3.33 (< OR =4)
[2025-05-28] MEDS ORDERED: PRED10TA2 PO (12:33)
[2025-05-28] MEDS ORDERED: med rec comment (12:34)
[2025-05-28] MEDS ORDERED: HOME MED LIST COMPLETE! XX SCH (12:35)
[2025-05-28 13:04] LABS: KETONE, URINE AUTO RFX NEGATIVE (NEGATIVE); LEUKOCYTE ESTERASE UR AUTO RFX NEGATIVE (NEGATIVE); NITRITE, URINE AUTO RFX POSITIVE (NEGATIVE); RBC, URINE AUTO RFX 5 /HPF (0-3); SQUAM EPITHELIAL CELL UR AURFX 4 /HPF (0-6); WBC, URINE AUTO RFX 0 /HPF (0-3)
[2025-05-28 15:05] VITALS: BP 142/70; TEMP 97.9; O2SAT 98
== END 2025-05-28 15:49 | disposition home or self-care (01) ==
LOC: EDBD 09:05 → M ED 09:05
DX: R05.9 Cough, unspecified (principal); K82.9 Disease of gallbladder, unspecified; K44.9 Diaphragmatic hernia without obstruction or gangrene; J98.11 Atelectasis; K57.30 Diverticulosis of large intestine without perforation or abscess without bleeding; I70.90 Unspecified atherosclerosis; G47.33 Obstructive sleep apnea (adult) (pediatric); J44.9 Chronic obstructive pulmonary disease, unspecified; Z86.79 Personal history of other diseases of the circulatory system; G89.29 Other chronic pain; Z79.01 Long term (current) use of anticoagulants; Z88.8 Allergy status to other drugs, medicaments and biological substances; Z79.1 Long term (current) use of non-steroidal anti-inflammatories (NSAID); Z79.82 Long term (current) use of aspirin; Z79.02 Long term (current) use of antithrombotics/antiplatelets; Z79.899 Other long term (current) drug therapy
CPT/HCPCS: 36415; 71045; 71275; 74176; 80048; 80076; 81001; 82550; 82553; 82803; 83605; 83880; 84443; 84484; 85025; 87040; 87088; 87186; 87486; 87581; 87633; 87798; 93005; 93041; 94760; 99285; Q9967